=== PATIENT | female | born 1960 | race Caucasian/White ===

== ENCOUNTER 2019-04-16 05:50 | Day surgery (SDC) | payer MEDICARE, MEDICAID, SELFPAY ==
[2019-04-15 14:30] VITALS: BMI 16.5
[2019-04-16 06:06] VITALS: BP 112/86; PULSE 106; RESP 18; TEMP 36.3; O2SAT 93
--- NOTE | 2019-04-16 06:24 | ANES.PREANE2 ---
Pre-Anesthetic Assessment Pre-Anesthetic Assessment: Height/Weight: Height 1.8 m Weight 53.524 kg Temp Pulse Resp BP Pulse Ox 97.4 F L 106 H 18 112/86 93 04/16/19 06:06 04/16/19 06:06 04/16/19 06:06 04/16/19 06:06 04/16/19 06:06 Preop Diagnosis: Mediport removal Proposed Procedure: Operation Date: 04/16/19 07:00 Proposed Procedures p Portacath Removal 42299 C34.90(Not Applicable) - Reji Wilson MD Last intake: Intake Last Liquid Date 04/15/19 Last Liquid Time 21:00 Last Solid Date 04/15/19 Last Solid Time 20:00 Social: Social History: Tobacco Packs per day: 1/2 Pack years: 22 Exam: Pre-Anes Outpt Exam: alert, oriented x 3, clear to auscultation bilaterally and regular rate & rhythm Airway: Dentition: False Musc/skel: Musc/skel: Lower Back Pain Comments: right radiculopathy Neuropsych: Neuropsych: Anxiety Anesthetic Plan: ASA status: III Anesthesia: MAC PFSH Anesthesia PFSH: Social History Smoking and tobacco status: current every day smoker Alcohol intake: never Household members: family Current occupational status: disabled Data Anesthesia Cardiac Studies: No Data to Display
[2019-04-16] MEDS: scopolamine 1.5 Patch 1 PATCH TRANSDERMA (06:34)
[2019-04-16] MEDS: sodium chloride 0.9% 1,000 ML 30 ML IV (06:34)
[2019-04-16] MEDS: midazolam 1 mg/mL INJ 2 mL 2 MG IVP (06:52)
--- NOTE | 2019-04-16 06:53 | PM.HPUD ---
H&P update H&P Update: DATE OF SURGERY/PROCEDURE: 04/16/19 DATE H&P PERFORMED: 04/04/19 H&P UPDATE INFORMATION: H&P completed within last 30 days and No changes to prior documentation PREOP DIAGNOSIS: Mediport removal PLANNED PROCEDURE: Operation Date: 04/16/19 07:00 Proposed Procedures p Portacath Removal 79469 C34.90(Not Applicable) - Reji Wilson MD Full H&P Medications/Allergies: Current Medications: Current Medications Generic Name Dose Route Start Last Admin Trade Name Freq PRN Reason Stop Dose Admin Sodium Chloride 1,000 mls @ 30 ml s/hr 04/16/19 06:15 04/16/19 06:34 Sodium Chloride 0.9% IV 04/17/19 06:14 30 mls/hr .Q24H JIM Administration Perinent History: Medical/Surgical History: Medical History (Updated 04/04/19 @ 13:35 by Reji Wilson MD) Anxiety (Acute) Cancer of left breast (Acute) DDD (degenerative disc disease), lumbar (Acute) H/O fracture of ankle (Acute) ORIF left 12/08/14 Dr. Walden Lung cancer (Acute) Port-A-Cath in place (Acute) Family History: Family History (Updated 04/02/19 @ 10:38 by Ya Iqbal LPN) Other Cancer Heart disease Hypertension Denies family history of Anesthesia complication Bleeding disorder Social History: Social History Smoking and tobacco status: current every day smoker Alcohol intake: never Household members: family Current occupational status: disabled
[2019-04-16] MEDS: lidocaine 1% INJ 20 mL SUBCUT (07:15)
[2019-04-16 07:32] VITALS: BP 100/57; PULSE 75; RESP 16; TEMP 36.4; O2SAT 100
[2019-04-16 08:02] VITALS: BP 100/73; PULSE 73; RESP 18; TEMP 36.4; O2SAT 94
--- NOTE | 2019-04-16 09:21 | PM.OP ---
Operative Report Date of procedure: April 16, 2019 Pre-op Diagnosis: Mediport removal Post-op diagnosis: same Procedure Done: Removal of Mediport from the left subclavian vein Pathology: none sent Surgeon: Reji Wilson Anesthesia: MAC Condition: stable Disposition: same day Procedure: Patient was taken to the operating room and her left chest was prepped and draped in a sterile manner. 10 mL of 1% lidocaine with 0.5% Marcaine was infiltrated around the MediPort and catheter in the right subclavian vein. Using a 15 blade the previous incision was opened, the subcutaneous tissue was divided using electrocautery and MediPort along the catheter was dissected free from the surrounding subcutaneous tissue and removed entirely. The wound was irrigated with saline, hemostasis ensured with electrocautery and subcutaneous tissue was approximated using 3-0 Vicryl suture and skin was closed using running subcuticular 4-0 Monocryl suture. 4x4 and sterile dressings were used as a pressure dressing. The patient was transferred to the recovery room in stable condition.
== END 2019-04-16 08:19 | disposition home or self-care (01) ==
PROVIDERS: PCP Family Medicine; Visit Provider Surgery
PROC: (CPT 36589; principal; 2019-04-16 07:00)
DX: Z45.2 Encounter for adjustment and management of vascular access device (principal); F17.210 Nicotine dependence, cigarettes, uncomplicated; Z82.49 Family history of ischemic heart disease and other diseases of the circulatory system
CPT/HCPCS: 36590; 12345; 96374; J2001; J2250; J2704; J3490; J7030

== ENCOUNTER 2019-09-08 10:47 | Outpatient (CLI) | payer MEDICARE, MEDICAID, SELFPAY ==
--- NOTE | 2019-09-08 10:55 | XR_ITS ---
WS: [id number] LEFT FOOT: 3 VIEW(S) TECHNIQUE: AP, oblique and lateral. HISTORY: HAMMER TOE/ LEFT FOOT PAIN COMPARISON: None available. Prior bunionectomy surgery. Diffuse osteopenia. No acute fractures. Narrowing of the articulations in the midfoot and diffuse ham mertoe deformities. No soft tissue abnormality or bone destruction. XR/XR foot LT min 3V* [id number] IMPRESSION: 1. Prior bunion surgery. 2. Hammertoe deformities. 3. Osteopenia and midfoot arthritis.
== END 2019-09-08 10:48 | disposition home or self-care (01) ==
LOC: RADWPI 10:51
PROVIDERS: Family Provider Family Medicine; PCP Family Medicine; Visit Provider Nurse Practitioner Family
DX: M20.42 Other hammer toe(s) (acquired), left foot (principal); M79.672 Pain in left foot; M85.89 Other specified disorders of bone density and structure, multiple sites
CPT/HCPCS: 73630

== ENCOUNTER 2019-09-29 15:06 | Outpatient (CLI) | payer MEDICARE, MEDICAID, SELFPAY | END 2019-09-29 15:07 | disposition home or self-care (01) | LOC: SPT 15:10 | PROVIDERS: Family Provider Family Medicine; PCP Family Medicine; Visit Provider Podiatrist Foot & Ankle Surgery | DX: M76.822 Posterior tibial tendinitis, left leg (principal) | CPT/HCPCS: 97760; L1902 ==

== ENCOUNTER 2019-10-21 10:45 | Outpatient (CLI) | payer MEDICARE, MEDICAID, SELFPAY ==
--- NOTE | 2019-10-21 11:01 | MM_ITS ---
WS: [id number] RIGHT DIGITAL MAMMOGRAPHY WITH CAD CLINICAL INFORMATION: HX OF BREAST C COMPARISON: November 21, 2016 TECHNIQUE: 4 views of the right breast were obtained. FINDINGS: History of left mastectomy. The right breast is composed of heterogeneous fibroglandular density tissue, which can limit the dete ction of small underlying mass lesions. Lucent centered calcifications right breast. No suspicious focal mass, asymmetry, calcifications, or architectural distortion. No evidence of ethan gnancy. MM/[place] [id number] IMPRESSION: BI-RADS: 2-Benign FOLLOW UP: 1 Year Follow-up Recommend return to annual diagnostic mammography.
== END 2019-10-21 10:46 | disposition home or self-care (01) ==
LOC: RADSHAW 10:51
PROVIDERS: PCP Nurse Practitioner Family; Visit Provider Internal Medicine Hematology & Oncology
DX: Z85.3 Personal history of malignant neoplasm of breast (principal)
CPT/HCPCS: 77065

== ENCOUNTER 2020-03-29 10:26 | Outpatient (CLI) | payer MEDICARE, MEDICAID, SELFPAY ==
--- NOTE | 2020-03-29 10:36 | XR_ITS ---
WS: [id number] ANKLE RIGHT TECHNIQUE: 3 views of the right ankle CLINICAL INFORMATION: ANKLE PAIN, RIGHT COMPARISON: None. FINDINGS: Nondisplaced fracture medial malleolus appears subacute with evidence of healing. Evidence of some c allus formation. Normal lateral malleolus. Minimal soft tissue edema. Normal ankle mortise. Osteopeni a. Partially visualized postoperative changes first metatarsal. XR/XR ankle RT min 3V* 11201 IMPRESSION: 1. Nondisplaced fracture medial malleolus with callus formation. 2. Normal lateral malleolus. 3. Osteopenia.
--- NOTE | 2020-03-29 10:36 | XR_ITS ---
WS: [id number] PROCEDURE: XR chest 2V* [id number] CLINICAL INFORMATION: DYSPNEA COMPARISON: 018 FINDINGS: Heart: Normal cardiac silhouette. Lungs: Lungs are clear. No consolidation or pleural fluid. Volume loss right lung due to prior partia l lobectomy. Moderate chronic sinus changes. Bones: Thoracic curve convex right. Surgical clips right hilum and left axilla. XR/XR chest 2V* 28080 IMPRESSION: 1. Volume loss right hemithorax with prior partial right lung resections. 2. No acute pulmonary infiltrates. 3. Surgical clips overlying the right hilum and left axilla.
== END 2020-03-29 10:27 | disposition home or self-care (01) ==
LOC: RADWPI 10:34
PROVIDERS: PCP Nurse Practitioner Family; Visit Provider Nurse Practitioner Family
DX: R06.00 Dyspnea, unspecified (principal); M85.88 Other specified disorders of bone density and structure, other site; S82.54XA Nondisplaced fracture of medial malleolus of right tibia, initial encounter for closed fracture; X58.XXXA Exposure to other specified factors, initial encounter
CPT/HCPCS: 71046; 73610

== ENCOUNTER 2020-03-31 14:27 | Outpatient (CLI) | payer MEDICARE, MEDICAID, SELFPAY | END 2020-03-31 14:28 | disposition home or self-care (01) | LOC: SPT 14:27 | PROVIDERS: PCP Nurse Practitioner Family; Visit Provider Podiatrist Foot & Ankle Surgery | DX: Z46.89 Encounter for fitting and adjustment of other specified devices (principal); M76.822 Posterior tibial tendinitis, left leg | CPT/HCPCS: 97760; L4361 ==

== ENCOUNTER 2020-04-07 10:50 | Outpatient (CLI) | payer MEDICARE, MEDICAID, SELFPAY ==
--- NOTE | 2020-04-07 10:56 | CT_ITS ---
WS: [id number] CT RIGHT ANKLE, NONCONTRAST, 3-D reconstructions. HISTORY: fracture Technique: All CT scans at [facility] use at least one of these dose optimization techniq ues: automated exposure control; mA and/or kV adjustment per patient size (includes targeted exams wh ere dose is matched to clinical indication); or iterative reconstruction. DLP: 603.46 mGycm COMPARISON: None available. Healing nondisplaced vertical fracture through the medial malleolus. There is increasing callous form ation with only minimal adjacent soft tissue edema. No loose body in the joint space. Distal fibula i s intact. No osteochondral lesions are identified. Talus and the calcaneus are negative for acute pro cess. The subtalar joint is normal. Again noted are the postsurgical changes in the first metatarsal. CT/CT ankle RT wo con* [id number] IMPRESSION: 1. Healing nondisplaced fracture medial malleolus. 2. No additional fractures or bone fragments or osteochondral lesions.
== END 2020-04-07 10:51 | disposition home or self-care (01) ==
LOC: RADWPI 10:54
PROVIDERS: PCP Nurse Practitioner Family; Visit Provider Podiatrist Foot & Ankle Surgery
DX: S82.891A Other fracture of right lower leg, initial encounter for closed fracture (principal); X58.XXXA Exposure to other specified factors, initial encounter
CPT/HCPCS: 73700

== ENCOUNTER 2020-04-16 05:37 | Day surgery (SDC) | payer MEDICARE, MEDICAID, SELFPAY ==
[2020-04-15 09:39] VITALS: BMI 16.7
[2020-04-16] VITALS (8 sets, daily range): BP systolic 112–133; BP diastolic 75–88; PULSE 69–92; RESP 12–20; TEMP 36.6; O2SAT 94–98
[2020-04-16] MEDS: sodium chloride 0.9% 1,000 ML 30 ML IV (06:30)
[2020-04-16] MEDS: scopolamine 1.5 Patch 1 PATCH TRANSDERMA (06:37)
--- NOTE | 2020-04-16 06:37 | P.HPUD_ITS ---
Surgery/Procedure H&P Update DATE OF PROCEDURE: April 16, 2020 DATE H&P PERFORMED: 04/08/20 H&P UPDATE INFORMATION: I have reviewed H&P completed within last 30 days, I have examined patient prior to procedure, No changes to prior documentation and H&P is in [facility] EMR on date indicated PREOP DIAGNOSIS: Right ankle bimalleolar fracture PLANNED PROCEDURE: Operation Date: 04/16/20 07:00 Proposed Procedures p ORIF Ankle 88395 S82.841A(Right) - eRfugio Torres DPM
[2020-04-16] MEDS: midazolam 1 mg/mL INJ 2 mL 2 MG IVP (06:40)
--- NOTE | 2020-04-16 06:47 | P.OP_ITS ---
Operative Report Date of procedure: April 16, 2020 Pre-op Diagnosis: Right ankle bimalleolar fracture Post-op diagnosis: same Post-op Findings: Distal fibular fracture, right, medial malleolus fracture, right. Procedure Done: Open reduction internal fixation right bimalleolar ankle fracture. CPT code 28392 Implants: 3-0 Vicryl, 4-0 Vicryl, 4-0 nylon, skin amparo, [place] 28 hook plate, [place] 28 locking and nonlocking screws 3.5 mm in diameter. [place] 28 4.0 headed screws with washers x2. Pathology: none sent Surgeon: Refugio Torres D.P.M. Drilling Rig Operator: Marichuy Farah Anna Anesthesia: General Estimated blood loss: Less than 5 mL Tourniquet time: 40 minutes IV fluids: None Urine output: None Complications: None Findings: Darien Casper a fracture of the right distal fibula, medial malleolus fracture right. No syndesmotic disruption. Condition: stable Disposition: PACU Brief History: Early January 2020 patient sustained a right ankle injury sustaining a bimalleolar ankle fracture. She did not seek medical treatment until approximately 2.5 months later states that she thought that she could heal it on her own however she has had persistent pain over the past 2 and half months which has been increasing she is unable to walk or bear weight on it at this time. Recommended open reduction internal fixation of the right bimalleolar ankle fracture risks include pain, bleeding, numbness, infection, hardware failure, irritation of hardware, likelihood of posttraumatic arthritis. Patient interviewed preop, informed consent signed, all questions answered to her satisfaction she wishes to proceed, I initialed her right ankle with a skin marker no guarantees, written expressed or implied. Procedure: Under mild sedation the patient was brought to the operating room and placed on the operating table in supine position. A popliteal block was administered per anesthesia preoperatively to the right lower extremity. A timeout was performed and anesthesia administered by the anesthesia service. Local anesthesia injected by myself 10 cc of 0.5 sent Marcaine plain diffusely at the distal fibula as well as at the saphenous nerve, right. Well-padded right high calf tourniquet was applied. Right lower extremity was scrubbed, prepped and draped utilizing normal aseptic technique. Left foot was examined a weighted with an Esmarch bandage and tourniquet inflated to 250 mmHg. Attention was directed to the lateral malleolus where a linear longitudinal incision was made over the lateral malleolus coursing proximally in a linear longitudinal fashion. Dissection carried down through subcutaneous tissue utilizing blunt dissection periosteal incision was performed and fracture was identified evacuated of hematoma and reduced followed by application of hook plate which was tamped into place and eccentric plate hole utilized for further compression this was a [place] 28 plate for the distal fibula and also utilize [place] 28 3.5 mm locking and nonlocking screws. After having filled the eccentric hole of the plate for further compression 2 screws proximal and distal were also fixated utilizing standard AO technique. Care was taken to not violate the ankle mortise this was confirmed on fluoroscopy. Incision site was flushed with copious amounts of sterile saline solution. AP, mortise and lateral views confirmed excellent placement of hardware and fixation of the fracture fragment. Periosteum was closed utilizing 3-0 Vicryl. Subcutaneous closed utilizing 4-0 Vicryl and skin closed utilizing skin amparo. Attention was directed to the right medial malleolus. Curvilinear incision was made at the distal aspect of the malleolus with a #15 blade. Dissection carried down through subcutaneous tissue to the layer of periosteum utilizing blunt and sharp technique. All bleeders were ligated and cauterized as necessary. Utilizing standard AO technique in a parallel fashion [place] 28 headed and with washers for millimeter screws by 50 mm screw were inserted across the medial malleolus with excellent bony apposition and compression noted not violating the ankle mortise. Positioning confirmed on fluoroscopy noted to be excellent with fracture reduction. Periosteum was reapproximated utilizing 3-0 Vicryl. Skin closed utilizing 4-0 nylon. Incision sites dressed with Adaptic, sterile 4 x 4, Kerlix and Manuel wrap followed by application of cam boot to the right lower extremity. Tourniquet was deflated and a prompt hyperemic response is noted to the distal digits of the right foot. Patient tolerated the procedure and anesthesia well and was transferred to the PACU with vital signs stable and vascular status intact. Following a period of postoperative monitoring she will be discharged home is to remain strict nonweightbearing is to keep the boot on at all times is to elevate her right foot was given these instructions on discharge paperwork also my phone number to contact me with any questions or concerns.
--- NOTE | 2020-04-16 06:51 | ANES.PREANE2 ---
Pre-Anesthetic Assessment Pre-Anesthetic Assessment: Height/Weight: Height 1.8 m Weight 54.431 kg Pulse Resp BP Pulse Ox 92 20 H 123/82 94 04/16/20 06:13 04/16/20 06:13 04/16/20 06:13 04/16/20 06:13 Preop Diagnosis: Right ankle bimalleolar fracture Proposed Procedure: Operation Date: 04/16/20 07:00 Proposed Procedures p ORIF Ankle 21180 S82.841A(Right) - Refugio Torres DPM Familial anesthetic complications: PONV - scop patch applied Was Beta Poonam taken within 24 hours: N/A Last intake: Intake Last Liquid Date 04/15/20 Last Liquid Time 19:00 Last Solid Date 04/15/20 Last Solid Time 19:00 Social: Social History: Tobacco and No alcohol Exam: Pre-Anes Outpt Exam: alert, oriented x 3, clear to auscultation bilaterally and regular rate & rhythm Airway: MP: 2 Dentition: Other (no teeth) Pulmonary: Comments: s/p lung cancer (only 1/3 of right lung remains) Anesthetic Plan: ASA status: 2 Anesthesia: General and Regional (specify below) (popliteal) Risk of > 500 ml blood loss (7ml/kg in children): No Meds/Allergies Current Medications: Current Medications Generic Name Dose Route Start Last Admin Trade Name Freq PRN Reason Stop Dose Admin Sodium Chloride 1,000 mls @ 30 ml s/hr 04/16/20 06:00 04/16/20 06:30 Sodium Chloride 0.9% IV 04/17/20 05:59 30 mls/hr .Q24H JIM Administration PFSH Anesthesia PFSH: Medical History (Updated 04/12/20 @ 12:34 by Refugio Torres DPM) Anxiety Cancer of left breast DDD (degenerative disc disease), lumbar H/O fracture of ankle ORIF left 12/08/14 Dr. Walden Lung cancer Surgical History H/O colonoscopy 2014 H/O foot surgery left x 2 right x 1 H/O removal of cyst abdomen H/O: hysterectomy vaginal History of breast implant removal Explantation of postmastectomy implant, partial capsulotomy mastectomy site 12/20/16 History of lobectomy of lung right History of removal of Port-a-Cath S/P left mastectomy Status post left breast reconstruction Family History Other Cancer Heart disease Hypertension Denies family history of Anesthesia complication Bleeding disorder Social History Smoking and tobacco status: current every day smoker Alcohol intake: never Household members: family Current occupational status: disabled Data Anesthesia Cardiac Studies: No Data to Display
--- NOTE | 2020-04-16 06:52 | ANES.PROC ---
Anesthesia Procedures Procedure/Date: 04/16/20 Nerve Block ^: Nerve Block 1: Main Anesthesia: general anesthesia Time Out Performed: Yes Consent: requested by attending/covering physician Nerve block location: popliteal (R) Anesthesia monitors applied: pulse oximetry, EKG, BP cuff and oxygen Nerve block position: semi sitting Anesthetic Used: ropivicaine 0.5% and with decadron (4 mg) Amount of anesthesia used (mL): 30 Ultrasound used to: recognize landmarks Nerve Stimulator Used?: No Interscalene/Femoral BLK: 4 stimuplex 21 g needle used for position and inplane approach, visualize local anesthetic spread and no vascular puncture identified Injection: neg aspiration of heme Patient Tolerated Procedure: well and no complications Complications: none
--- NOTE | 2020-04-16 08:12 | XR_ITS ---
WS: [id number] Right ankle, 3 views, 04/16/2020 Clinical Data: post op Comparison: Right ankle, 03/29/2020. Findings: There is a plate extending over the distal lateral aspect of the right fibula which has an inferior c url. Plate is applied with 4 orthopedic screws. There is a anterior posterior oblique screw in the di stal right fibula. 2 oblique orthopedic screws are reducing a medial malleolar fracture. There is an orthopedic screw and staple in the right first metatarsal from previous surgery. There are surgical amparo adjacent to the distal right fibula. There is a splint applied to the righ t ankle. XR/XR ankle RT min 3V* [id number] Impression: Repair of bimalleolar fracture.
--- NOTE | 2020-04-16 09:11 | P.PCN_ITS ---
PACU note PACU note: VSS, Good respiratory effort, report to CUSTOMER STRATEGY MANAGER Post-Anesthesia Exam: awake
--- NOTE | 2020-04-16 09:11 | PM.PACU ---
PACU note PACU note: VSS, Good respiratory effort, report to REPAIRER SWITCHGEAR Post-Anesthesia Exam: awake
--- NOTE | 2020-04-16 15:26 | ANE.PACU2 ---
Inpatient post-anesthesia follow up: Airway intact: Yes Vital signs: Temperature 97.8 F Pulse Rate 87 Respiratory Rate 18 Blood Pressure 115/88 Pulse Oximetry 94 Oxygen Delivery Me thod Room Air Oxygen Flow Rate 8 Fraction of Inspir ed Oxygen Hydration adequate: Yes Nausea and vomiting: No Pain level: 2 Mental status: Baseline
== END 2020-04-16 09:01 | disposition home or self-care (01) ==
PROVIDERS: PCP Nurse Practitioner Family; Visit Provider Podiatrist Foot & Ankle Surgery
PROC: (CPT 27814; principal; 2020-04-16 07:00)
DX: S82.841A Displaced bimalleolar fracture of right lower leg, initial encounter for closed fracture (principal); X58.XXXA Exposure to other specified factors, initial encounter; Z85.118 Personal history of other malignant neoplasm of bronchus and lung; Z90.2 Acquired absence of lung [part of]; F41.9 Anxiety disorder, unspecified; Z85.3 Personal history of malignant neoplasm of breast; Z90.10 Acquired absence of unspecified breast and nipple; F17.210 Nicotine dependence, cigarettes, uncomplicated
CPT/HCPCS: 27814; 12345; 64450; 73610; 76942; 96365; 96374; C1713; J0690; J1100; J2250; J2405; J2704; J2795; J3010; J3490; J7030

== ENCOUNTER 2020-04-25 18:12 | Inpatient (IN) | payer MEDICARE, MEDICAID, SELFPAY ==
[2020-04-25] VITALS (9 sets, daily range): BP systolic 91–127; BP diastolic 69–79; PULSE 78–105; RESP 14–18; TEMP 36.7; O2SAT 90–94; BMI 15.3
--- NOTE | 2020-04-25 18:22 | ED_ITS ---
Documented by User: SIM Arevalo 04/26/20 02:28 HPI - General Adult General: Chief complaint: General Medical Stated complaint: WEAKNESS Time Seen by Provider: 04/25/20 18:19 History of Present Illness: HPI narrative: Patient is a 59-year-old female comes to the ED with weakness. Patient has a past medical history of Breast cancer that spread to the lungs. She had some pulmonary lung surgically removed several years ago. Patient had a right ankle fracture and received surgery on April 16. She is currently in a boot and was scheduled to have a follow-up appointment with Dr. Torres in the morning perform the surgery on April 23 but patient did not go to it because she was unable to make it. She describes having weakness postop and she says it has not improved. Patient does admit to not being very active and laying in bed most of the time. Patient currently has oxycodone 10 prescription and hydrocodone 10 prescription that she takes for pain. Patient says she has no constipation and has been able to have bowel movements. She endorses a decreased appetite since surgery as well. She states she has some chronic shortness of breath but does not feel like she is having any acute worsening shortness of breath. Patient denies any nausea/vomiting, fever, chills, chest pain, abdominal pain, bladder or bowel symptoms. Associated symptoms: Reports dyspnea (Chronic ); Deny chest pain, headache(s), nausea, rash, palpitations or vomiting Review of Systems Const: Reports: change in appetite (Decreased appetite), fatigue and other (Generalized weakness); Denies: fever(s) or chills Eyes: Denies: change in vision or eye discomfort ENMT: Denies: throat pain, odynophagia, nasal discharge or nasal congestion Card: Denies: chest pain, palpitations, edema, swelling of feet/ankles, dyspnea on exertion or orthopnea Resp: Reports: dyspnea (Chronic ); Denies: productive cough or non-productive cough GI: Denies: abdominal pain, nausea, vomiting, diarrhea, constipation or hematochezia : Denies: flank pain, dysuria or hematuria Musc: Reports: extremity pain (normal post right ankle surgery pain); Denies: neck pain, back pain or extremity swelling Skin/Breast: Denies: rash or new lesions Neuro: Denies: headache(s), numbness in extremities or weakness in extremities PFSH ED PFSH: Medical History (Updated 04/26/20 @ 11:47 by Nathen Johnson MD, [facility] [place]) Anxiety Cancer of left breast had surgery, other treatment not known currently DDD (degenerative disc disease), lumbar Lung cancer s/p lobectomy and chemotherapy, 2nd primary per patient Surgical History (Updated 04/26/20 @ 03:55 by Hina Mancia MD) H/O colonoscopy 2014 H/O foot surgery left x 2 right x 1 H/O removal of cyst abdomen H/O: hysterectomy vaginal History of breast implant removal (12/20/16) Explantation of postmastectomy implant, partial capsulotomy mastectomy site History of lobectomy of lung right History of open reduction and internal fixation (ORIF) procedure (12/08/14) left ankle, Dr Walden History of open reduction and internal fixation (ORIF) procedure (04/16/20) right bimalleolar ankle fracture, Dr Torres History of removal of Port-a-Cath (04/2019) S/P left mastectomy Status post left breast reconstruction Family History Other Cancer Heart disease Hypertension Denies family history of Anesthesia complication Bleeding disorder Social History (Updated 04/26/20 @ 04:34 by Hina Mancia MD) Smoking and tobacco status: current every day smoker cigarettes [ Other cigarette details: more than a pack per day ] Alcohol intake: never Current occupational status: disabled Physical Exam Const: COMMON NORMALS: no acute distress, patient oriented x3 and alert GENERAL APPEARANCE: cooperative, comfortable and lethargic ORIENTATION/CONSCIOUSNESS: Yes lethargic HENMT: COMMON NORMALS: normocephalic HEAD & SCALP: normocephalic MOUTH: Normal oral and palatal mucosa present THROAT: posterior oropharynx normal and uvula midline Eye: COMMON NORMALS: EOMs intact bilaterally PUPIL: Yes Equal, round and reactive pupils present and Yes Pinpoint pupils bilaterally (pupils were pinpoint and reactive to light) Neck/C-Spine: COMMON NORMALS: supple GENERAL: Yes normal visual inspection Resp: COMMON NORMALS: normal respiratory effort, No retractions and No use of accessory muscles EFFORT & INSPECTION: Yes able to speak in complete sentences, No tachypneic, No respiratory distress and No labored A USCULTATION: wheezes expiratory wheezes and throughout and diminished lung sounds on the right in the lower lung brown Cardio: COMMON NORMALS: regular rate, regular rhythm, S1 normal heart sound present, S2 normal heart sound present, No gallops present (Cardio), No clicks present (Cardio), No murmurs present (Cardio) and Peripheral pulses 2+ throughout RATE: regular rate RHYTHM: regular rhythm HEART SOUNDS: S1 normal heart sound present and S2 normal heart sound present PERIPHERAL PULSES: Peripheral pulses 2+ throughout GI: COMMON NORMALS: Normal to inspection, nondistended, normoactive bowel sounds present, Soft to palpation, non-tender and no masses PALPATION: Yes Soft to palpation : COMMON NORMALS: Yes no CVA tenderness BLADDER/KIDNEY EXAM: Yes no CVA tenderness Back/Pelvis: COMMON NORMALS: no CVA tenderness Extremity: GENERAL: Yes normal exam except as noted Neuro: COMMON NORMALS: patient oriented x3 and moves all extremities SENSORIUM/ORIENTATION: Yes alert and Yes lethargic Skin: GENERAL SKIN EXAM: dry skin Course Reevaluation(s): Reevaluation #1: After patient received DuoNeb breathing treatment her lung sounds and wheezing did improve. She still had diminished lung sounds in the right lower lobe. Vital Signs: Vital signs: Vital Signs Temperature 98.2 F 04/26/20 08:00 Pulse Rate 84 04/26/20 09:36 Respiratory Rate 18 04/26/20 09:36 Blood Pressure 110/61 04/26/20 08:00 Pulse Oximetry 94 04/26/20 09:36 MDM - General Adult MDM Narrative: Medical decision making narrative: Patient is a 59-year-old female comes to the ED with generalized weakness. Patient has a past medical history of breast cancer that spread into the lung and had part of right upper lung surgically removed. Patient had right ankle surgery on April 16 and states she has not been very active since surgery and feels increasing generalized weakness. Patient not on oxygen at home. Here in the ED she is on 4 L of oxygen and O2 saturation is 93%. Patient appears very tired and sleepy. Exam findings remarkable for some wheezing throughout lungs with diminished breath sounds on right lower lung. Patient also had pinpoint pupils that were reactive to light. White blood cell count 20.4, platelets 527 and rest of CBC was unremarkable. Sodium 130, potassium 2.8. Lactic 1.1. Rapid Covid negative and [facility] Covid lab pending. Chest x-ray showed right lower lobe pneumonia. EKG showed no acute OR findings. CTA of chest shows no PE, but endobronchial occlusion of the right lung beginning at the origin of the right mainstem- possible malignancy. On the ED patient got IV fluids, DuoNeb breathing treatment, Solu-Medrol and Rocephin. I spoke with Dr. Johnson and told about patient case and I think she needs to be brought in for admission. Dr. Johnson then contacted the hospitalist and had patient admitted. Lab Data: Attestation: I reviewed the patient's lab results. Labs: Lab Results 04/25/20 04/25/20 04/25/20 Range/Units 19:13 19:13 20:41 WBC 20.4 H (4.0-10.0) 10^3/ uL RBC 4.19 (4.1-5.3) 10^6/u L Hgb 12.4 (11.5-15.3) g/dL Hct 36.3 L (37.0-47.0) % MCV 86.6 (81-99) fL MCH 29.6 (28.0-34.0) pg MCHC 34.2 (30.0-36.0) g/dL RDW 15.0 (12.1-15.1) % Plt Count 527 H (130-400) 10^3/c mm MPV 9.8 (7.4-10.4) fL Neut % (Auto) 86.1 % Lymph % (Auto) 4.9 % [place] % (Auto) 7.1 % Eos % (Auto) 0.5 % Baso % (Auto) 0.4 % Neut # (Auto) 17.58 H (1.8-7.7) 10^3/u L Lymph # (Auto) 1.0 (0.8-4.8) 10^3/u L [place] # (Auto) 1.4 H (0.2-0.9) 10^3/u L Eos # (Auto) 0.1 (0.0-0.8) 10^3/u L Baso # (Auto) 0.1 (0.0-0.1) 10^3/u L Nucleated RBC % (a uto) 0 % Nucleated RBCs # 0.0 /100WBC Sodium 130 L (136-145) mmol/L Potassium 2.8 L* (3.5-5.1) mmol/L Chloride 89 L (98-107) mmol/L Carbon Dioxide 30 H (22-29) mmol/L Anion Gap 13.8 (5-19) BUN 15 (8-23) mg/dL Creatinine 0.5 (0.5-0.9) mg/dL GFR Calculation 125.9 (90-130) mL/min Glucose 90 (65-115) mg/dL Calculated Osmolal ity 270 L (285-295) mOsm/k g Lactic Acid 1.1 (0.5-2.2) mmol/L Calcium 8.7 (8.5-10.5) mg/dL Total Bilirubin 0.6 (0.15-1.2) mg/dL AST 10 (0-32) U/L ALT 6 (0-33) U/L Alkaline Phosphata se 104 (35-105) IU/L Total Protein 6.4 L (6.6-8.7) g/dL Albumin 2.9 L (3.5-5.2) g/dL Globulin 3.5 (1.3-4.6) g/dL SARS-CoV-2 Ag (Rap id) (Negative) 04/25/20 Range/Units 23:50 WBC (4.0-10.0) 10^3/ uL RBC (4.1-5.3) 10^6/u L Hgb (11.5-15.3) g/dL Hct (37.0-47.0) % MCV (81-99) fL MCH (28.0-34.0) pg MCHC (30.0-36.0) g/dL RDW (12.1-15.1) % Plt Count (130-400) 10^3/c mm MPV (7.4-10.4) fL Neut % (Auto) % Lymph % (Auto) % [place] % (Auto) % Eos % (Auto) % Baso % (Auto) % Neut # (Auto) (1.8-7.7) 10^3/u L Lymph # (Auto) (0.8-4.8) 10^3/u L [place] # (Auto) (0.2-0.9) 10^3/u L Eos # (Auto) (0.0-0.8) 10^3/u L Baso # (Auto) (0.0-0.1) 10^3/u L Nucleated RBC % (a uto) % Nucleated RBCs # /100WBC Sodium (136-145) mmol/L Potassium (3.5-5.1) mmol/L Chloride (98-107) mmol/L Carbon Dioxide (22-29) mmol/L Anion Gap (5-19) BUN (8-23) mg/dL Creatinine (0.5-0.9) mg/dL GFR Calculation (90-130) mL/min Glucose (65-115) mg/dL Calculated Osmolal ity (285-295) mOsm/k g Lactic Acid (0.5-2.2) mmol/L Calcium (8.5-10.5) mg/dL Total Bilirubin (0.15-1.2) mg/dL AST (0-32) U/L ALT (0-33) U/L Alkaline Phosphata se (35-105) IU/L Total Protein (6.6-8.7) g/dL Albumin (3.5-5.2) g/dL Globulin (1.3-4.6) g/dL SARS-CoV-2 Ag (Rap id) Negative (Negative) Imaging Data^: CXR: Attestation: I personally reviewed and interpreted this imaging study as follows: Radiologist's impression: [address] [address] XRay Report Signed Patient: Natalee Leach Unit #: [id number] : 1960 Age/Sex: 59 / F ADM Date: 04/25/20 Loc: ER Room/Bed: Attending Dr: Ordering Provider/Ordering MD: Devin James Date of Service: 04/25/20 Procedure(s): XR chest 1V portable [id number] Accession Number(s): [id number] Report Number: [id number] PROCEDURE INFORMATION: Exam: XR Chest, 1 View Exam date and time: 04/25/2020 6:33 PM Age: 59 years old Clinical indication: Dyspnea; Additional info: Weakness TECHNIQUE: Imaging protocol: XR of the chest Views: 1 view. COMPARISON: CR XR chest 2V* [id number] 03/29/2020 10:41 AM FINDINGS: Lungs: Patchy opacities in the right lower lobe new from prior. Pre-existing right lung volume loss stable from prior. Surgical clips within the right hilum. Pleural spaces: Unremarkable. No pleural effusion. No pneumothorax. Heart/Mediastinum: Cardiomediastinal silhouette is unremarkable. Bones/joints: Unremarkable. XR/XR chest 1V portable [id number] IMPRESSION: Development of right lower lobe pneumonia which is new since 03/29/2020 Dictated By: Jovany Morris Signed By: Jovany Morris Signed Date/Time: 04/25/201908 DD/ 06 CT Chest: Attestation: I personally reviewed and interpreted this imaging study as follows: Radiologist's impression: [place] [address] CT Scan Report Signed Patient: Natalee Leach Unit #: [id number] : 1960 Age/Sex: 59 / F ADM Date: 04/25/20 Loc: ER Room/Bed: Attending Dr: Ordering Provider/Ordering MD: Devin James Date of Service: 04/25/20 Procedure(s): CT angio chest PE protcl [id number] Accession Number(s): [id number] Report Number: [id number] PROCEDURE INFORMATION: Exam: CT Angiography Chest With Contrast Exam date and time: 04/25/2020 9:36 PM Age: 59 years old Clinical indication: Shortness of breath; Prior surgery; Surgery date: 6+ months; Surgery type: Mast w recon, port w removal, R lobectomy; Patient HX: C/O SOB 9 days S/P ankle surgery TECHNIQUE: Imaging protocol: Computed tomographic angiography of the chest with contrast. 3D rendering (Not supervised by radiologist): MIP and/or 3D reconstructed images were created by the technologist. Radiation optimization: All CT scans at this facility use at least one of these dose optimization techniques: automated exposure control; mA and/or kV adjustment per patient size (includes targeted exams where dose is matched to clinical indication); or iterative reconstruction. Contrast material: OMNI 350; Contrast volume: 62 ml; Contrast route: INTRAVENOUS (IV); COMPARISON: CT chest w con* [id number] 12/30/2013 9:28 AM RADIATION DOSE METRICS: Total DLP (mGy-cm): 366.68 FINDINGS: Pulmonary arteries: Normal. No pulmonary emboli. Aorta: Unremarkable. No aortic aneurysm. No aortic dissection. Lungs: Extensive irregular micro nodular changes in both lungs. Geographic areas of ground-glass attenuation scattered in the left upper lobe. Mild diffuse septal thickening throughout the right lower lobe. 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 Pleural spaces: Unremarkable. No pneumothorax. No pleural effusion. Heart: Unremarkable. No cardiomegaly. No pericardial effusion. Mediastinal space: Postoperative changes in the right hilum. Multiple surgical clips. Most likely prior lobectomy. Lymph nodes: Unremarkable. No enlarged lymph nodes. Liver: Several small left hepatic lobe circumscribed low-attenuation lesions stable from prior. Bones/joints: There is an L2 vertebral compression fracture of indeterminate acuity which is also incompletely assessed by this examination. No thoracic spine lesion. No thoracic vertebral fracture. Soft tissues: Left mastectomy postsurgical changes. CT/CT angio chest PE protcl [id number] IMPRESSION: 1. Extensive nonspecific pneumonia in both lungs. 2. 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 Endobronchial malignancy cannot be excluded. Numerous surgical clips are present in the right hilum consistent with prior thoracic surgery. 3. Negative for pulmonary embolism. 4. Age indeterminate L2 vertebral fracture. Correlate with available comparison imaging. Radiation Dose CTDIVOL = (mGy): DLP = 366.68 (mGy-cm) Dictated By: Jovany Morris Signed By: Jovany Morris Signed Date/Time: 04/25/202211 DD/ 09 EKG Data^: EKG 1: Attestation: I personally reviewed and interpreted this EKG as follows: EKG interpretation date: 04/25/20 Interpretation: Normal sinus rhythm, 92 bpm, no ST segment elevation or depression seen. Computer generated interpretation: Chest X-Ray 04/25/20 18:31 IMPRESSION: Development of right lower lobe pneumonia which is new since 03/29/2020 Chest CTA 04/25/20 20:30 IMPRESSION: 1. Extensive nonspecific pneumonia in both lungs. 2. 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 Endobronchial malignancy cannot be excluded. Numerous surgical clips are present in the right hilum consistent with prior thoracic surgery. 3. Negative for pulmonary embolism. 4. Age indeterminate L2 vertebral fracture. Correlate with available comparison imaging. Radiation Dose CTDIVOL = (mGy): DLP = 366.68 (mGy-cm) Discharge Plan Discharge Patient Disposition: Admitted As Inpatient Admit Provider: Hina Mancia Clinical Impression: Pneumonia, Hypokalemia, History of breast cancer, History of lung cancer Condition: Stable Coding Level of Care Code ED Grinder Set Up Operator Internal for Chg Fwd Exam Comprehensive Documented by User: Nathen Johnson MD, [facility] [place] 04/26/20 11:47 HPI - General Adult General: Chief complaint: General Medical Stated complaint: WEAKNESS Time Seen by Provider: 04/25/20 18:19 [facility] ED PFSH: Medical History (Updated 04/26/20 @ 11:47 by Nathen Johnson MD, [facility] [place]) Anxiety Cancer of left breast had surgery, other treatment not known currently DDD (degenerative disc disease), lumbar Lung cancer s/p lobectomy and chemotherapy, 2nd primary per patient Surgical History (Updated 04/26/20 @ 03:55 by Hina Mancia MD) H/O colonoscopy 2014 H/O foot surgery left x 2 right x 1 H/O removal of cyst abdomen H/O: hysterectomy vaginal History of breast implant removal (12/20/16) Explantation of postmastectomy implant, partial capsulotomy mastectomy site History of lobectomy of lung right History of open reduction and internal fixation (ORIF) procedure (12/08/14) left ankle, Dr Walden History of open reduction and internal fixation (ORIF) procedure (04/16/20) right bimalleolar ankle fracture, Dr Torres History of removal of Port-a-Cath (04/2019) S/P left mastectomy Status post left breast reconstruction Family History Other Cancer Heart disease Hypertension Denies family history of Anesthesia complication Bleeding disorder Social History (Updated 04/26/20 @ 04:34 by Hina Mancia MD) Smoking and tobacco status: current every day smoker cigarettes [ Other cigarette details: more than a pack per day ] Alcohol intake: never Current occupational status: disabled Course Vital Signs: Vital signs: Vital Signs Temperature 98.2 F 04/26/20 08:00 Pulse Rate 84 04/26/20 09:36 Respiratory Rate 18 04/26/20 09:36 Blood Pressure 110/61 04/26/20 08:00 Pulse Oximetry 94 04/26/20 09:36 MDM - General Adult MDM Narrative: Medical decision making narrative: Kindly evaluate the midlevel providers notes for complete history and physical examination. I also evaluated this patient. Essentially this is a 59-year-old female patient with a prior history of breast cancer that metastasized to the lung following which she had partial lobectomy of her right long several years ago. She presents with generalized weakness, and surprisingly no respiratory symptoms. Weakness is likely related to severe hypokalemia. On imaging however she has features that could be pneumonia but also shows right mainstem bronchus occlusion. I believe she also has post obstructitve pneumonia. Findings are concerning for lymphatic spread of malignancy. She will require a bronchoscopy and further workup as well as IV antibiotics. She is therefore being admitted. Medical Records: Attestation: I reviewed the patient's medical records. Lab Data: Attestation: I reviewed the patient's lab results. Labs: Lab Results 04/25/20 04/25/20 04/25/20 Range/Units 19:13 19:13 20:41 WBC 20.4 H (4.0-10.0) 10^3/ uL RBC 4.19 (4.1-5.3) 10^6/u L Hgb 12.4 (11.5-15.3) g/dL Hct 36.3 L (37.0-47.0) % MCV 86.6 (81-99) fL MCH 29.6 (28.0-34.0) pg MCHC 34.2 (30.0-36.0) g/dL RDW 15.0 (12.1-15.1) % Plt Count 527 H (130-400) 10^3/c mm MPV 9.8 (7.4-10.4) fL Neut % (Auto) 86.1 % Lymph % (Auto) 4.9 % [place] % (Auto) 7.1 % Eos % (Auto) 0.5 % Baso % (Auto) 0.4 % Neut # (Auto) 17.58 H (1.8-7.7) 10^3/u L Lymph # (Auto) 1.0 (0.8-4.8) 10^3/u L [place] # (Auto) 1.4 H (0.2-0.9) 10^3/u L Eos # (Auto) 0.1 (0.0-0.8) 10^3/u L Baso # (Auto) 0.1 (0.0-0.1) 10^3/u L Nucleated RBC % (a uto) 0 % Nucleated RBCs # 0.0 /100WBC Sodium 130 L (136-145) mmol/L Potassium 2.8 L* (3.5-5.1) mmol/L Chloride 89 L (98-107) mmol/L Carbon Dioxide 30 H (22-29) mmol/L Anion Gap 13.8 (5-19) BUN 15 (8-23) mg/dL Creatinine 0.5 (0.5-0.9) mg/dL GFR Calculation 125.9 (90-130) mL/min Glucose 90 (65-115) mg/dL Calculated Osmolal ity 270 L (285-295) mOsm/k g Lactic Acid 1.1 (0.5-2.2) mmol/L Calcium 8.7 (8.5-10.5) mg/dL Total Bilirubin 0.6 (0.15-1.2) mg/dL AST 10 (0-32) U/L ALT 6 (0-33) U/L Alkaline Phosphata se 104 (35-105) IU/L Total Protein 6.4 L (6.6-8.7) g/dL Albumin 2.9 L (3.5-5.2) g/dL Globulin 3.5 (1.3-4.6) g/dL SARS-CoV-2 Ag (Rap id) (Negative) 04/25/20 Range/Units 23:50 WBC (4.0-10.0) 10^3/ uL RBC (4.1-5.3) 10^6/u L Hgb (11.5-15.3) g/dL Hct (37.0-47.0) % MCV (81-99) fL MCH (28.0-34.0) pg MCHC (30.0-36.0) g/dL RDW (12.1-15.1) % Plt Count (130-400) 10^3/c mm MPV (7.4-10.4) fL Neut % (Auto) % Lymph % (Auto) % [place] % (Auto) % Eos % (Auto) % Baso % (Auto) % Neut # (Auto) (1.8-7.7) 10^3/u L Lymph # (Auto) (0.8-4.8) 10^3/u L [place] # (Auto) (0.2-0.9) 10^3/u L Eos # (Auto) (0.0-0.8) 10^3/u L Baso # (Auto) (0.0-0.1) 10^3/u L Nucleated RBC % (a uto) % Nucleated RBCs # /100WBC Sodium (136-145) mmol/L Potassium (3.5-5.1) mmol/L Chloride (98-107) mmol/L Carbon Dioxide (22-29) mmol/L Anion Gap (5-19) BUN (8-23) mg/dL Creatinine (0.5-0.9) mg/dL GFR Calculation (90-130) mL/min Glucose (65-115) mg/dL Calculated Osmolal ity (285-295) mOsm/k g Lactic Acid (0.5-2.2) mmol/L Calcium (8.5-10.5) mg/dL Total Bilirubin (0.15-1.2) mg/dL AST (0-32) U/L ALT (0-33) U/L Alkaline Phosphata se (35-105) IU/L Total Protein (6.6-8.7) g/dL Albumin (3.5-5.2) g/dL Globulin (1.3-4.6) g/dL SARS-CoV-2 Ag (Rap id) Negative (Negative) EKG Data^: EKG 1: Computer generated interpretation: Chest X-Ray 04/25/20 18:31 IMPRESSION: Development of right lower lobe pneumonia which is new since 03/29/2020 Chest CTA 04/25/20 20:30
--- NOTE | 2020-04-25 18:31 | XRR_ITS ---
PROCEDURE INFORMATION: Exam: XR Chest, 1 View Exam date and time: 04/25/2020 6:33 PM Age: 59 years old Clinical indication: Dyspnea; Additional info: Weakness TECHNIQUE: Imaging protocol: XR of the chest Views: 1 view. COMPARISON: CR XR chest 2V* [id number] 03/29/2020 10:41 AM FINDINGS: Lungs: Patchy opacities in the right lower lobe new from prior. Pre-existing right lung volume loss stable from prior. Surgical clips within the right hilum. Pleural spaces: Unremarkable. No pleural effusion. No pneumothorax. Heart/Mediastinum: Cardiomediastinal silhouette is unremarkable. Bones/joints: Unremarkable. XR/XR chest 1V portable [id number] IMPRESSION: Development of right lower lobe pneumonia which is new since 03/29/2020
--- NOTE | 2020-04-25 18:31 | ECG_ITS ---
[facility] Test Date: 2020-04-25 Pat Name: Natalee Leach Department: Room: Gender: Female Founding Partner: : 1960 Requested By: Devin James Order Number: [id number] Jennifer MD: Cristy Fabian M.D. Measurements Intervals [place] Rate: 92 P: 76 TN: 130 QRS: 75 QRSD: 77 T: 78 QT: 296 QTc: 367 Interpretive Statements SINUS RHYTHM POSSIBLE LEFT ATRIAL ENLARGEMENT [-0.1mV P WAVE IN V1/V2] SEPTAL MYOCARDIAL INFARCTION , OF INDETERMINATE AGE [40+ ms Q WAVE IN V1/V2] Compared to ECG 10/11/2017 10:11:43 No significant changes Electronically Signed On 04-26-2020 16:06:12 [employer]YWALL APPLICATION SUPERVISOR by Cristy Fabian M.D. [email or web address]
[2020-04-25 19:17] LABS: Basophils # 0.1 10^3/uL (0.0-0.1); Basophils % 0.4 %; Eosinophils # 0.1 10^3/uL (0.0-0.8); Eosinophils % 0.5 %; Hematocrit 36.3 % (37.0-47.0); Hemoglobin 12.4 g/dL (11.5-15.3); Lymphocytes % 4.9 %; Mean Corpuscular HGB Conc 34.2 g/dL (30.0-36.0); Mean Corpuscular Hemoglobin 29.6 pg (28.0-34.0); Mean Corpuscular Volume 86.6 fL (81-99); Mean Platelet Volume 9.8 fL (7.4-10.4); Monocytes # 1.4 10^3/uL (0.2-0.9); Monocytes % 7.1 %; Neutrophils # 17.58 10^3/uL (1.8-7.7); Neutrophils % 86.1 %; Nucleated Red Blood Cells % 0 %; Platelet Count 527 10^3/cmm (130-400); Red Blood Count 4.19 10^6/uL (4.1-5.3); White Blood Count 20.4 10^3/uL (4.0-10.0)
[2020-04-25 19:39] LABS: Alanine Aminotransferase 6 U/L (0-33); Albumin Level 2.9 g/dL (3.5-5.2); Alkaline Phosphatase 104 IU/L (35-105); Anion Gap 13.8 (5-19); Aspartate Amino Transferase 10 U/L (0-32); Blood Urea Nitrogen 15 mg/dL (8-23); Calcium 8.7 mg/dL (8.5-10.5); Carbon Dioxide 30 mmol/L (22-29); Chloride 89 mmol/L (98-107); Creatinine Clr Calc Pharmacy 94.2461; Globulin 3.5 g/dL (1.3-4.6); Glomerular Filtration Rate 125.9 mL/min (90-130); Glucose 90 mg/dL (65-115); Osmolality Calculated 270 mOsm/kg (285-295); Sodium 130 mmol/L (136-145); Total Bilirubin 0.6 mg/dL (0.15-1.2); Total Protein 6.4 g/dL (6.6-8.7)
[2020-04-25 19:40] LABS: Potassium 2.8 mmol/L (3.5-5.1)
[2020-04-25] MEDS: ipratropium-albuterol 3 mL Neb 6 ML INHALATION (19:44)
[2020-04-25] MEDS: sodium chloride 0.9% 1,000 ML 999 ML IV (19:52)
[2020-04-25] MEDS: cefTRIAXone 2,000 MG in sodium chloride 0.9% (plus) 50 ML 100 MG IV (19:58)
[2020-04-25] MEDS: potassium chloride premix 100 ML 50 MEQ IV (20:21)
[2020-04-25] MEDS: lidocaine 1% INJ 20 mL 5 ML IV (20:22)
--- NOTE | 2020-04-25 20:30 | CTR_ITS ---
PROCEDURE INFORMATION: Exam: CT Angiography Chest With Contrast Exam date and time: 04/25/2020 9:36 PM Age: 59 years old Clinical indication: Shortness of breath; Prior surgery; Surgery date: 6+ months; Surgery type: Mast w recon, port w removal, R lobectomy; Patient HX: C/O SOB 9 days S/P ankle surgery TECHNIQUE: Imaging protocol: Computed tomographic angiography of the chest with contrast. 3D rendering (Not supervised by radiologist): MIP and/or 3D reconstructed images were created by the technologist. Radiation optimization: All CT scans at this facility use at least one of these dose optimization techniques: automated exposure control; mA and/or kV adjustment per patient size (includes targeted exams where dose is matched to clinical indication); or iterative reconstruction. Contrast material: OMNI 350; Contrast volume: 62 ml; Contrast route: INTRAVENOUS (IV); COMPARISON: CT chest w con* [id number] 12/30/2013 9:28 AM RADIATION DOSE METRICS: Total DLP (mGy-cm): 366.68 FINDINGS: Pulmonary arteries: Normal. No pulmonary emboli. Aorta: Unremarkable. No aortic aneurysm. No aortic dissection. Lungs: Extensive irregular micro nodular changes in both lungs. Geographic areas of ground-glass attenuation scattered in the left upper lobe. Mild diffuse septal thickening throughout the right lower lobe. 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 Pleural spaces: Unremarkable. No pneumothorax. No pleural effusion. Heart: Unremarkable. No cardiomegaly. No pericardial effusion. Mediastinal space: Postoperative changes in the right hilum. Multiple surgical clips. Most likely prior lobectomy. Lymph nodes: Unremarkable. No enlarged lymph nodes. Liver: Several small left hepatic lobe circumscribed low-attenuation lesions stable from prior. Bones/joints: There is an L2 vertebral compression fracture of indeterminate acuity which is also incompletely assessed by this examination. No thoracic spine lesion. No thoracic vertebral fracture. Soft tissues: Left mastectomy postsurgical changes. CT/CT angio chest PE protcl [id number] IMPRESSION: 1. Extensive nonspecific pneumonia in both lungs. 2. 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 Endobronchial malignancy cannot be excluded. Numerous surgical clips are present in the right hilum consistent with prior thoracic surgery. 3. Negative for pulmonary embolism. 4. Age indeterminate L2 vertebral fracture. Correlate with available comparison imaging. Radiation Dose CTDIVOL = (mGy): DLP = 366.68 (mGy-cm)
[2020-04-25 21:05] LABS: Lactic Sepsis W/Reflex 1.1 mmol/L (0.5-2.2)
[2020-04-25] MEDS: iohexol 350 mg/mL 100 mL Btl IV (21:55)
--- NOTE | 2020-04-25 23:32 | P.HP_ITS ---
Providers/Chief Complaint Admitting Physician: reta Mancia Primary Care Provider: Flor Kumar Chief Complaint: WEAKNESS History of Present Illness Natalee Leach is a 59 year old female who presented to the emergency room with a chief complaint of weakness. She is currently not wanting to review her history again so I am a bit limited in what I can get currently. She had repair of a right ankle fracture on April 16 here at [facility] by Dr. Torres. Since surgery she has been weak and tired. I am not sure what the inciting event was for her to come to the emergency room specifically this evening. I am not sure who she lives with her if she is alone. She denies taking very many prescribed pain medications because she does not want to get hooked. She does hurt all over. She has not had any falls but has had difficulty getting around. She has not had much of an appetite. She denied any fever. She does not really describe any increase difficulty breathing, cough, hemoptysis. She does continue to smoke more than a pack of cigarettes a day. She has never required oxygen therapy. She has a history of 2 primary malignancies, breast cancer as well as lung cancer. She completed treatment with chemotherapy for lung cancer in 2019. She had her Port-A-Cath removed by Dr. Wilson in 2019. She had also had a lobectomy on the right. I am not sure the details of her breast cancer treatment currently. She has not had any follow-up with oncology since completing her chemotherapy. She does report weight loss. In the emergency room she was found to be hypoxemic. She denies ever having required oxygen therapy before. Work-up was undertaken and identified a white count of 20,000 with a left shift and chest x-ray findings of pneumonia. Given the history of recent surgery, she underwent CTA of the chest. While there was no PE patricia ntified patient had extensive micronodular changes to both lungs as well as an extensive endobronchial occlusion in the right lung beginning at the origin of the right mainstem bronchus. Right hilar surgical clips noted from previous pulmonary surgery. Given the findings, hypoxemia and elevated white count patient is admitted for further evaluation and treatment. The case was discussed Dr. Fortune briefly by the ER physician. No emergent indication for bronchoscopy. Patient was started on antibiotics and admitted to the floor. Information I was able to obtain from the patient as noted below otherwise not currently obtainable due to her not wanting to participate in discussions. Review of Systems Const: Reports: chills, body aches, change in appetite, change in weight (weight loss), fatigue and malaise; Denies: fever(s) ENMT: Denies: throat pain or nasal congestion Card: Reports: chest pain; Denies: palpitations or edema Resp: Reports: dyspnea, productive cough, non-productive cough, wheezing and pain on inspiration; Denies: hemoptysis GI: Reports: abdominal pain; Denies: nausea, vomiting, diarrhea or constipation : Denies: difficulty voiding Musc: Reports: back pain, extremity pain, muscle weakness and other (post op ankle pain, wearing boot) Skin/Breast: Denies: sores Neuro: Reports: weakness in extremities and difficulty walking Glenn/Lymph: Denies: other (bleeding) Medications/Allergies Home Medications Medication Instructions Recorded Confirmed Last Taken Type loratadine 10 mg tablet 10 mg PO QDAY 04/02/19 04/15/20 04/15/20 History gabapentin 300 mg PO TID 04/15/19 04/15/20 04/15/20 History quetiapine 200 mg PO BEDTIME 04/15/19 04/15/20 04/15/20 History quetiapine 25 mg tablet 25 mg PO DAILY 09/29/19 04/15/20 04/15/20 History supinator #1 each 09/29/19 04/15/20 Unknown Rx Katarzyna AFO ankle brace #1 ea 10/08/19 04/15/20 Unknown Rx Cam boot #1 ea 03/31/20 04/15/20 Unknown Rx hydrocodone-acetaminophen tab 04/26/20 04/26/20 Unknown History oxycodone-acetaminophen 04/26/20 04/26/20 Unknown History Allergies Allergy/AdvReac Type Severity Reaction Status Date / Time Sulfa (Sulfonamide Allergy vomiting Verified 04/25/20 18:19 Antibiotics) PFSH Acute PFSH: Medical History (Updated 04/26/20 @ 04:58 by Hina Mancia MD) Anxiety Cancer of left breast had surgery, other treatment not known currently DDD (degenerative disc disease), lumbar Lung cancer s/p lobectomy and chemotherapy, 2nd primary per patient Surgical History (Updated 04/26/20 @ 03:55 by Hina Mancia MD) H/O colonoscopy 2014 H/O foot surgery left x 2 right x 1 H/O removal of cyst abdomen H/O: hysterectomy vaginal History of breast implant removal (12/20/16) Explantation of postmastectomy implant, partial capsulotomy mastectomy site History of lobectomy of lung right History of open reduction and internal fixation (ORIF) procedure (12/08/14) left ankle, Dr Walden History of open reduction and internal fixation (ORIF) procedure (04/16/20) right bimalleolar ankle fracture, Dr Torres History of removal of Port-a-Cath (04/2019) S/P left mastectomy Status post left breast reconstruction Family History Other Cancer Heart disease Hypertension Denies family history of Anesthesia complication Bleeding disorder Social History (Updated 04/26/20 @ 04:34 by Hina Mancia MD) Smoking and tobacco status: current every day smoker cigarettes [ Other cigarette details: more than a pack per day ] Alcohol intake: never Current occupational status: disabled Vitals/I&O/Wt Last Vital Signs Temp 98.0 F 04/25/20 18:13 Pulse 82 04/25/20 23:00 Resp 14 04/25/20 23:00 BP 108/73 04/25/20 23:00 Pulse Ox 93 04/25/20 23:00 Weight last 48 hrs Weight 49.895 kg Physical Exam Const: OTHER: Thin build, awake, oriented to person, place and situation HENMT: OTHER: Bitemporal wasting, dry mucous membranes Eye: OTHER: Extraocular movements grossly intact Neck/C-Spine: OTHER: Supple Resp: OTHER: Scattered wheezes, crackles right base, occasional cough during examination nonproductive Cardio: OTHER: Regular rate and rhythm GI: OTHER: Abdomen soft, nontender, positive bowel sounds Extremity: NARRATIVE EXTREMITY EXAM: Able to move toes of right foot, postoperative boot intact, no pain with palpation of left foot Neuro: OTHER: Face symmetric, speech clear, moves all extremities Skin: OTHER: Skin is dry, visible skin surface without acute rashes Data : 04/25/20 19:13 04/25/20 19:13 Other Labs: Laboratory Last Values WBC 20.4 10^3/uL (4.0-10.0) H 04/25/20 19:13 RBC 4.19 10^6/uL (4.1-5.3) 04/25/20 19:13 Hgb 12.4 g/dL (11.5-15.3) 04/25/20 19:13 Hct 36.3 % (37.0-47.0) L 04/25/20 19:13 MCV 86.6 fL (81-99) 04/25/20 19:13 MCH 29.6 pg (28.0-34.0) 04/25/20 19:13 MCHC 34.2 g/dL (30.0-36.0) 04/25/20 19:13 RDW 15.0 % (12.1-15.1) 04/25/20 19:13 Plt Count 527 10^3/cmm (130-400) H 04/25/20 19:13 MPV 9.8 fL (7.4-10.4) 04/25/20 19:13 Neut % (Auto) 86.1 % 04/25/20 19:13 Lymph % (Auto) 4.9 % 04/25/20 19:13 Porter % (Auto) 7.1 % 04/25/20 19:13 Eos % (Auto) 0.5 % 04/25/20 19:13 Baso % (Auto) 0.4 % 04/25/20 19:13 Neut # (Auto) 17.58 10^3/uL (1.8-7.7) H 04/25/20 19:13 Lymph # (Auto) 1.0 10^3/uL (0.8-4.8) 04/25/20 19:13 Porter # (Auto) 1.4 10^3/uL (0.2-0.9) H 04/25/20 19:13 Eos # (Auto) 0.1 10^3/uL (0.0-0.8) 04/25/20 19:13 Baso # (Auto) 0.1 10^3/uL (0.0-0.1) 04/25/20 19:13 Nucleated RBC % (auto) 0 % 04/25/20 19:13 Nucleated RBCs # 0.0 /100WBC 04/25/20 19:13 Sodium 130 mmol/L (136-145) L 04/25/20 19:13 Potassium 2.8 mmol/L (3.5-5.1) L* 04/25/20 19:13 Chloride 89 mmol/L (98-107) L 04/25/20 19:13 Carbon Dioxide 30 mmol/L (22-29) H 04/25/20 19:13 Anion Gap 13.8 (5-19) 04/25/20 19:13 BUN 15 mg/dL (8-23) 04/25/20 19:13 Creatinine 0.5 mg/dL (0.5-0.9) 04/25/20 19:13 GFR Calculation 125.9 mL/min (90-130) 04/25/20 19:13 Glucose 90 mg/dL (65-115) 04/25/20 19:13 Calculated Osmolality 270 mOsm/kg (285-295) L 04/25/20 19:13 Lactic Acid 1.1 mmol/L (0.5-2.2) 04/25/20 20:41 Calcium 8.7 mg/dL (8.5-10.5) 04/25/20 19:13 Total Bilirubin 0.6 mg/dL (0.15-1.2) 04/25/20 19:13 AST 10 U/L (0-32) 04/25/20 19:13 ALT 6 U/L (0-33) 04/25/20 19:13 Alkaline Phosphatase 104 IU/L (35-105) 04/25/20 19:13 Total Protein 6.4 g/dL (6.6-8.7) L 04/25/20 19:13 Albumin 2.9 g/dL (3.5-5.2) L 04/25/20 19:13 Globulin 3.5 g/dL (1.3-4.6) 04/25/20 19:13 CXR: Radiologist's impression: FINDINGS: Lungs: Patchy opacities in the right lower lobe new from prior. Pre-existing right lung volume loss stable from prior. Surgical clips within the right hilum. Pleural spaces: Unremarkable. No pleural effusion. No pneumothorax. Heart/Mediastinum: Cardiomediastinal silhouette is unremarkable. Bones/joints: Unremarkable. XR/XR chest 1V portable [id number] IMPRESSION: Development of right lower lobe pneumonia which is new since 03/29/2020 CTA Chest: Radiologist's impression: FINDINGS: Pulmonary arteries: Normal. No pulmonary emboli. Aorta: Unremarkable. No aortic aneurysm. No aortic dissection. Lungs: Extensive irregular micro nodular changes in both lungs. Geographic areas of ground-glass attenuation scattered in the left upper lobe. Mild diffuse septal thickening throughout the right lower lobe. 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 Pleural spaces: Unremarkable. No pneumothorax. No pleural effusion. Heart: Unremarkable. No cardiomegaly. No pericardial effusion. Mediastinal space: Postoperative changes in the right hilum. Multiple surgical clips. Most likely prior lobectomy. Lymph nodes: Unremarkable. No enlarged lymph nodes. Liver: Several small left hepatic lobe circumscribed low-attenuation lesions stable from prior. Bones/joints: There is an L2 vertebral compression fracture of indeterminate acuity which is also incompletely assessed by this examination. No thoracic spine lesion. No thoracic vertebral fracture. Soft tissues: Left mastectomy postsurgical changes. CT/CT angio chest PE protcl [id number] IMPRESSION: 1. Extensive nonspecific pneumonia in both lungs. 2. 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 Endobronchial malignancy cannot be excluded. Numerous surgical clips are present in the right hilum consistent with prior thoracic surgery. 3. Negative for pulmonary embolism. 4. Age indeterminate L2 vertebral fracture. Correlate with available comparison imaging. A&P Assessment and plan (1) Weakness: Status: Acute (2) Hypoxemia: Status: Acute (3) Pneumonia: Status: Acute Qualifiers: Laterality: right Lung location: lower lobe of lung Pneumonia type: due to unspecified organism Qualified Code(s): J18.9 - Pneumonia, unspecified organism (4) Hypokalemia: Status: Acute (5) History of open reduction and internal fixation (ORIF) procedure: Status: Acute (6) Lung cancer: Status: Chronic Qualifiers: Laterality: right Lung location: upper lobe of lung Qualified Code(s): C34.11 - Malignant neoplasm of upper lobe, right bronchus or lung (7) Cancer of left breast: Status: Chronic Qualifiers: Breast location: unspecified site of breast Estrogen receptor status: unspecified Patient sex: female Qualified Code(s): C50.912 - Malignant neoplasm of unspecified site of left female breast (8) Nicotine dependence, cigarettes, with other nicotine-induced disorders: Status: Acute Additional A&P Information Inpatient admission Levaquin and Zosyn Breathing treatments as needed Oxygen therapy as much as patient will allow, she is currently refusing oxygen. Oxygen saturations are 87% on room air. I have offered to humidify the oxygen and attempted to explain reasons for ordering it and how low oxygen levels can make her more tired or weak. She remains disinterested in wearing the oxygen right now. Pulmonology has been consulted due to obstructing endobronchial lesion and other abnormalities noted on CT scan. I am not sure that patient will agree to see pulmonology. I attempted to discuss with her that there was concern about cancer being back and she indicated that she was done with cancer and did not want to hear about it and would not agree to any further evaluation or treatment. I tried to elucidate if she is had the endobronchial lesion previously. I think I can see similar changes to the right mainstem bronchus on previous plain films. Patient did not care to elaborate. Attempts to review CODE STATUS were also unsuccessful. Difficult to me to know if this is baseline, from acute issues or reaction to being told about possibility of the cancer being back. Monitored saturations off of oxygen for duration of my time in room and she was 87-89% RA laying flat. Input from pulmonology may help shape future conversations with patient Nicotine patch as needed Patient has no interest in smoking cessation Covid testing was ordered due to anticipation of need for bronchoscopy. Rapid specimen was barely able to be collected adequately and she refused the PCR test. Recently prescribed hydrocodone and oxycodone have been ordered if needed for moderate to severe pain along with gabapentin I decreased dose of Seroquel to 100 at bedtime at least currently Received some potassium replacement in the emergency room Continue some IV fluids with potassium Recheck laboratory studies in the morning SCDs and Lovenox for DVT prophylaxis Anticipate need for oxygen therapy at discharge, but as indicated she currently states that she will not take oxygen at home with her We will need to attempt to address goals of care at some point if she is agreeable I have currently listed her as full code as unable to get a response from her beyond questions about whether or not I think she will within the next 24 hours. I explained to her that I did not and that I ask everyone about goals of care during the course of hospital stay. Attestations Medical Necessity Statement*: Anticipated stay greater than 2 midnights in a patient with right-sided pneumonia, associated hypoxemia in a patient who has not previously been on oxygen, apparent endobronchial lesion, most likely cancer given prior history. Plans are as indicated. Coding Level of Care Code Acute Record Center Coordinator for g Fwd Diagnoses Weakness R53.1 Hypoxemia R09.02 Pneumonia J18.9 Laterality: right Lung location: lower lobe of lung Pneumonia type: due to unspecified organism Hypokalemia E87.6 History of open reduction and internal fixation (ORIF) procedure Z98.890 Lung cancer C34.11 Laterality: right Lung location: upper lobe of lung Cancer of left breast C50.912 Breast location: unspecified site of breast Estrogen receptor status: unspecified Patient sex: female Nicotine dependence, cigarettes, with other nicotine-induced disorders F17.218
--- NOTE | 2020-04-25 23:47 | PC.NURSE ---
Patient refused SARS COV-2 RNA swab
[2020-04-26 00:13] LABS: SARS Covid-2 Antigen Negative (Negative)
[2020-04-26 00:16] VITALS: BP 95/57; PULSE 84; RESP 20; TEMP 36.6; O2SAT 95
[2020-04-26] MEDS: levofloxacin-dextrose 5 % 750 MG/150 ML PREMIX 100 MG IV (00:56)
[2020-04-26] MEDS: enoxaparin 40 mg/0.4 mL Syringe SUBCUT (00:56)
[2020-04-26] MEDS: sodium chlor 0.9% + KCl 20 mEq 20 MEQ/1,000 ML BAG 100 MEQ IV (00:57)
[2020-04-26 04:00] VITALS: BP 104/69; PULSE 74; RESP 16; TEMP 36.9; O2SAT 90
[2020-04-26 04:32] VITALS: PULSE 88; RESP 16; O2SAT 93
[2020-04-26] MEDS: HYDROcodone-acetaminophen 5-325 mg Tablet 1 TAB PO (06:04)
[2020-04-26] MEDS: piperacillin-tazobactam 3.375 GM in sodium chloride 0.9% (plus) 50 ML IV (06:04)
[2020-04-26 06:22] LABS: Basophils # 0.1 10^3/uL (0.0-0.1); Basophils % 0.3 %; Hematocrit 36.6 % (37.0-47.0); Hemoglobin 12.3 g/dL (11.5-15.3); Lymphocytes # 0.8 10^3/uL (0.8-4.8); Lymphocytes % 4.1 %; Mean Corpuscular HGB Conc 33.6 g/dL (30.0-36.0); Mean Corpuscular Hemoglobin 29.3 pg (28.0-34.0); Mean Corpuscular Volume 87.1 fL (81-99); Mean Platelet Volume 10.2 fL (7.4-10.4); Monocytes # 0.1 10^3/uL (0.2-0.9); Monocytes % 0.7 %; Neutrophils # 17.63 10^3/uL (1.8-7.7); Neutrophils % 93.9 %; Nucleated Red Blood Cells % 0 %; Platelet Count 555 10^3/cmm (130-400); Red Cell Distribution Width 15.2 % (12.1-15.1); White Blood Count 18.8 10^3/uL (4.0-10.0)
[2020-04-26 06:58] LABS: Procalcitonin 0.28 ng/mL (0-0.5)
[2020-04-26 07:08] LABS: Anion Gap 15.8 (5-19); Blood Urea Nitrogen 14 mg/dL (8-23); Calcium 8.2 mg/dL (8.5-10.5); Carbon Dioxide 26 mmol/L (22-29); Chloride 97 mmol/L (98-107); Creatinine Clr Calc Pharmacy 117.8076; Glomerular Filtration Rate 162.8 mL/min (90-130); Glucose 98 mg/dL (65-115); Magnesium 2.2 mg/dL (1.7-2.3); Osmolality Calculated 280 mOsm/kg (285-295); Phosphorus 2.6 mg/dL (2.5-4.5); Potassium 3.8 mmol/L (3.5-5.1); Sodium 135 mmol/L (136-145)
[2020-04-26 08:00] VITALS: BP 110/61; PULSE 71; RESP 16; TEMP 36.8; O2SAT 92
[2020-04-26 09:36] VITALS: PULSE 84; RESP 18; O2SAT 94
--- NOTE | 2020-04-26 11:11 | PC.NURSE ---
SHIFT SUMMARY THIS NURSE WAS IN THIS PATIENTS ROOM AT APPROXIMATELY 0830 THIS MORNING PASSING MEDICATIONS AND COMPLETING A NEURO ASSESSMENT. THE PATIENT HAS BEEN NONCOMPLIANT. SHE WOULD ONLY TELL ME HER NAME AND BIRTHDAY. SHE REFUSED TO ANSWER WHAT YEAR IT IS, WHO THE PRESIDENT IS, WHERE SHE IS AT, ETC. ALL SHE WOULD SAY WHEN I ASKED HER A QUESTION WAS I DON'T CARE, I AM NOT ANSWERING ANYTHING, I AM LEAVING WHEN MY RIDE GETS HERE. I TRIED EXPLAINING TO HER THE REASON SHE WAS HERE AND THE MEDICATIONS SHE IS GETTING ARE TO HELP HER GET BETTER, SHE DISAGREED. SHE REFUSED HER MORNING MEDICATIONS. I TRIED TALKING TO HER AND SEEING IF SHE WOULD LET THE DOCTOR TALK TO HER SHE SAID ONLY IF HE GETS HERE BEFORE MY DOES. I ASKED HER TO GIVE US A CHANGE TODAY BUT SHE REFUSED SHE SAID SHE WAS DONE AND JUST WANTS TO GO HOME. I WENT AND GOT MY SIGNING AGENT, Blessing MARES RN, MSN, AND TOLD HER WHAT WAS HAPPENING AND SHE CAME AND TALKED TO THE PATIENT. THE PATIENT CONTINUED TO SAY THE SAME THING, THAT SHE WANTED TO LEAVE, SHE DOESN'T CARE WHAT WE HAVE TO SAY. THE PATIENTS SHOWED UP TO THE HOSPITAL ED AND THEN I WAS NOTIFIED HE WAS HERE. I STOPPED THE PATIENTS FLUIDS AND IV ANTIBIOTICS AND THEN REMOVED THE PATIENTS IV. AFTER ASKING THE PATIENT TO SIGN THE AMA FORM SHE SAID SHE WASN'T SIGNING ANYTHING AND THREW IT BACK AT US. I HAD AN AID IN WITH ME AT THE TIME. THE AID WENT AND CALLED SECURITY AND THE COMBINATION WELDER CAME UP HERE TO ASSIST IT APPEARED THAT SHE WAS GETTING VERY AGITATED. AFTER HE GOT UP HERE, THE COMBINATION WELDER, THE AID, AND MY SELF WENT BACK IN THE PATIENTS ROOM AND ASKED HER IF SHE WOULD SIGN THE FORM ONE MORE TIME AND SHE DID. WE THEN GOT HER IN A WHEELCHAIR, GATHERED HER THINGS, AND THE AID TOOK HER DOWNSTAIRS. THE SIGNED AMA FORM WAS PUT IN THE PATIENTS CHART. THE DOCTOR WAS NOTIFIED. PT LEFT WITH HER BELONGINGS, NO IV, AND THE EXPLANATION OF THE RISKS OF HER HEALTH DUE TO HER CHOOSING TO LEAVE AND HER NEEDING OXYGEN. SHE SAID SHE WAS FINE, SHE DID NOT NEED ANYTHING, JUST TO BE HOME.
--- NOTE | 2020-04-26 11:50 | P.DS_ITS ---
Discharge Providers Date of Admission: 04/26/20 05:24 Date of Discharge: April 26, 2020 Attending Provider at Admission: Hina Mancia MD Attending Provider at Discharge: Deion Lockhart Primary Care Provider: Flor Kumar Diagnoses at Discharge Discharge Diagnosis (1) Weakness: Status: Acute (2) Hypoxemia: Status: Acute (3) Pneumonia: Status: Acute Qualifiers: Laterality: right Lung location: lower lobe of lung Pneumonia type: due to unspecified organism Qualified Code(s): J18.9 - Pneumonia, unspecified organism (4) Hypokalemia: Status: Acute (5) History of open reduction and internal fixation (ORIF) procedure: Status: Acute Permanent problem details: right bimalleolar ankle fracture, Dr Torres (6) Lung cancer: Status: Chronic Permanent problem details: s/p lobectomy and chemotherapy, 2nd primary per patient Qualifiers: Laterality: right Lung location: upper lobe of lung Qualified Code(s): C34.11 - Malignant neoplasm of upper lobe, right bronchus or lung (7) Cancer of left breast: Status: Chronic Permanent problem details: had surgery, other treatment not known currently Qualifiers: Breast location: unspecified site of breast Estrogen receptor status: unspecified Patient sex: female Qualified Code(s): C50.912 - Malignant neoplasm of unspecified site of left female breast (8) Nicotine dependence, cigarettes, with other nicotine-induced disorders: Status: Acute Reason for Visit Reason for Visit: WEAKNESS Hospital Course Hospital Course 59-year-old lady with history of breast cancer in 2010, status post mastectomy, chemotherapy, hormonal therapy, second primary cancer lung squamous cell carcinoma status post right upper and middle lobectomy, chemotherapy in , current smoker, recently with right ankle fracture repaired here on April 16 reportedly has been weak since surgery. She notes recently being inactive. In ER noted to have new requirement of initially 4 L oxygen by nasal cannula, subsequently down to 2 L. Not normally requiring supplemental oxygen. On presentation noted leukocytosis 20.4. Platelets 527. Potassium 2.8. Noted mild hyponatremia 130. Lactic acid was 1.1. Rapid COVID-19 antigen was negative. PCR was requested and is pending. Chest x-ray with noted right lower lobe infiltrates concerning for pneumonia new since 03/29 EKG not suggestive of acute [place]. Appears to have a Q-wave in V1, V2. Due to immobility, recent surgery, CTA chest was obtained without noted PE. But with noted extensive endobronchial occlusion and the right colon beginning at the origin of right mainstem bronchus. Endobronchial malignancy cannot be excluded. Numerous surgical clips present in the right hilum consistent with prior thoracic surgery. Noted extensive nonspecific pneumonia in both lungs. Age- indeterminate L2 vertebral fracture. Discussions of the results including possible differential diagnosis were done with her, although she declined to fur ther psrticipate in conversation reportedly make a statement that she was done with cancer . With pending COVID-19 PCR, she was maintained in isolation. Started on antibiotic treatment with Levaquin, Zosyn. In ER she initially received Solu-Medrol and Rocephin. Unfortunately she was not forthcoming with her interview initially, and subsequently with treatment. With saturations ranging 87-low 90s, repeatedly declining oxygen therapy, even appears stating admission that she would not be taking oxygen at home with her. Additional pulmonology assessment was being arranged due to lesion obstructing right bronchial, concern for possible recurrence of malignancy, new hypoxia, pneumonia, and treatment was being continued for pneumonia, with still pending additional assessments, however, she has left AGAINST MEDICAL ADVICE before she could be seen, reportedly declining to wait for oxygen to be set up and refusing any additional assessments or treatments. I was able to reach her by phone, asked her again to return to ER anytime given hypoxia and that she has not been set up for oxygen, and that her assessment treatment has not been complete with possibility of disability or life-thr eatening outcome, or if not to at least see her primary care provider and soonest available appointment, as well as let her know about electronically prescribed course of Levaquin. She verbalized understanding and agreement. She also confirmed the antibiotic and the name of the pharmacy. Physical Exam Narrative: EXAM NARRATIVE: Left before being seen. Discharge Data Data Completed and Pending: Completed Studies During Hospitalization Category Date Time Status CT angio chest PE protcl [id number] Urge nt Cat Scan 04/25/20 20:30 Completed XR chest 1V nikolai ble [id number] Stat Exams 04/25/20 18:31 Completed Pending at discharge Category Date Time Status [facility] SARS-CoV-2 RNA Routine Lab 04/25/20 23:24 Uncollected Labs from last 24 hours 04/26/20 04/26/20 04/25/20 05:53 05:53 23:50 WBC 18.8 H RBC 4.20 Hgb 12.3 Hct 36.6 L MCV 87.1 MCH 29.3 MCHC 33.6 RDW 15.2 H Plt Count 555 H MPV 10.2 Neut % (Auto) 93.9 Lymph % (Auto) 4.1 [place] % (Auto) 0.7 Eos % (Auto) 0.0 Baso % (Auto) 0.3 Neut # (Auto) 17.63 H Lymph # (Auto) 0.8 [place] # (Auto) 0.1 L Eos # (Auto) 0.0 Baso # (Auto) 0.1 Nucleated RBC % (a uto) 0 Nucleated RBCs # 0.0 Sodium 135 L Potassium 3.8 Chloride 97 L Carbon Dioxide 26 Anion Gap 15.8 BUN 14 Creatinine 0.4 L GFR Calculation 162.8 H Glucose 98 Calculated Osmolal ity 280 L Lactic Acid Calcium 8.2 L Phosphorus 2.6 Magnesium 2.2 Total Bilirubin AST ALT Alkaline Phosphata se Total Protein Albumin Globulin Procalcitonin 0.28 SARS-CoV-2 Ag (Rap id) Negative 04/25/20 04/25/20 04/25/20 20:41 19:13 19:13 WBC 20.4 H RBC 4.19 Hgb 12.4 Hct 36.3 L MCV 86.6 MCH 29.6 MCHC 34.2 RDW 15.0 Plt Count 527 H MPV 9.8 Neut % (Auto) 86.1 Lymph % (Auto) 4.9 [place] % (Auto) 7.1 Eos % (Auto) 0.5 Baso % (Auto) 0.4 Neut # (Auto) 17.58 H Lymph # (Auto) 1.0 [place] # (Auto) 1.4 H Eos # (Auto) 0.1 Baso # (Auto) 0.1 Nucleated RBC % (a uto) 0 Nucleated RBCs # 0.0 Sodium 130 L Potassium 2.8 L* Chloride 89 L Carbon Dioxide 30 H Anion Gap 13.8 BUN 15 Creatinine 0.5 GFR Calculation 125.9 Glucose 90 Calculated Osmolal ity 270 L Lactic Acid 1.1 Calcium 8.7 Phosphorus Magnesium Total Bilirubin 0.6 AST 10 ALT 6 Alkaline Phosphata se 104 Total Protein 6.4 L Albumin 2.9 L Globulin 3.5 Procalcitonin SARS-CoV-2 Ag (Rap id) Vitals: Last Vital Signs Temp 98.2 F 04/26/20 08:00 Pulse 84 04/26/20 09:36 Resp 18 04/26/20 09:36 BP 110/61 04/26/20 08:00 Pulse Ox 94 04/26/20 09:36 Discharge Plan Discharge Patient Disposition: Left Against Medical Advice Condition: Stable Prescriptions: New levofloxacin 750 mg tablet 750 mg PO DAILY 7 Days Qty: 7 RF: 0 No Action quetiapine [Seroquel] 25 mg tablet 25 mg PO DAILY RF: 0 (DME) supinator See Rx Instructions .ROUTE .MEDSUPPLY Qty: 1 RF: 0 loratadine [Claritin] 10 mg tablet 10 mg PO QDAY RF: 0 (DME) Cam boot See Rx Instructions .Route .MEDSUPPLY Qty: 1 RF: 0 (DME) Katarzyna AFO ankle brace See Rx Instructions .Route .MEDSUPPLY Qty: 1 RF: 0 quetiapine 200 mg tablet 200 mg PO BEDTIME RF: 0 gabapentin 300 mg Capsule 300 mg PO TID RF: 0 hydrocodone-acetaminophen 10-325 mg tablet 1 tab PO Q6H PRN (Reason: Pain) RF: 0 oxycodone-acetaminophen 10-325 mg tablet 1 tab PO Q6H PRN (Reason: Pain) RF: 0 Referrals: Zhang Fortune MD [Physician] - 1-3 days Flor Kumar FNP [Primary Care Provider] - 1-3 days Mehul Olmos MD [Staff Physician] - 1-3 days Discharge Attestations Time Spent in Discharge Care*: greater than 30 min Quality Metrics Clinical Quality Measures During this hospital stay, did patient experience: None Coding Level of Care Code Acute 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
--- NOTE | 2020-04-27 11:06 | PC.NURSE ---
Patient called inquiring about the antibiotic that was called in for her on 04/27. She states that a physician called her and stated yesterday afternoon that he was calling in the Rx. I spoke with Dr. Lockhart and he states that he attempted to call Levaquin in to [facility] and requested I call it in. I called [facility] and spoke with Nima and gave verbal order for Levaquin 750 mg 1 tablet PO daily for 7 days, no refills. He verbalizes understanding and states he will get that filled for the patient. I called back and spoke with the patient and informed her of this. She denies further needs at this time.
== END 2020-04-26 10:30 | disposition left against medical advice (07) | DRG 194 ==
LOC: ER 18:28 → MEDSURG 04-26 02:28
PROVIDERS: Admitting Provider Hospitalist; Emergency Provider Physician Assistant; PCP Nurse Practitioner Family; Visit Provider Internal Medicine
DX: J18.9 Pneumonia, unspecified organism (principal); C34.11 Malignant neoplasm of upper lobe, right bronchus or lung; Z85.3 Personal history of malignant neoplasm of breast; F17.210 Nicotine dependence, cigarettes, uncomplicated; Z85.118 Personal history of other malignant neoplasm of bronchus and lung; Z92.21 Personal history of antineoplastic chemotherapy; Z90.2 Acquired absence of lung [part of]; F41.9 Anxiety disorder, unspecified; M51.36 Other intervertebral disc degeneration, lumbar region; Z90.12 Acquired absence of left breast and nipple; E87.6 Hypokalemia; R09.02 Hypoxemia; S82.841D Displaced bimalleolar fracture of right lower leg, subsequent encounter for closed fracture with routine healing; X58.XXXD Exposure to other specified factors, subsequent encounter; Z92.23 Personal history of estrogen therapy; Z53.29 Procedure and treatment not carried out because of patient's decision for other reasons
CPT/HCPCS: 36415; 71045; 71275; 80048; 80053; 83605; 83735; 84100; 84145; 85025; 87426; 93005; 94640; 96365; 96366; 96367; 96372; 96375; 99285; G0378; J0696; J1650; J1956; J2543; J2930; J3480; J7030; Q9967

== ENCOUNTER → 2020-04-29 11:33 | Outpatient (BNVA) | payer MEDICARE, MEDICAID, SELFPAY | PROVIDERS: PCP Nurse Practitioner Family; Visit Provider Podiatrist Foot & Ankle Surgery | DX: S82.841G Displaced bimalleolar fracture of right lower leg, subsequent encounter for closed fracture with delayed healing (principal); X58.XXXD Exposure to other specified factors, subsequent encounter | CPT/HCPCS: 73610 ==

== ENCOUNTER → 2020-05-13 12:55 | Outpatient (BNVA) | payer MEDICARE, MEDICAID, SELFPAY | PROVIDERS: PCP Nurse Practitioner Family; Visit Provider Podiatrist Foot & Ankle Surgery | DX: M25.571 Pain in right ankle and joints of right foot (principal); S82.841G Displaced bimalleolar fracture of right lower leg, subsequent encounter for closed fracture with delayed healing; Z98.890 Other specified postprocedural states; W19.XXXD Unspecified fall, subsequent encounter | CPT/HCPCS: 73610 ==

== ENCOUNTER → 2020-05-28 09:12 | Outpatient (BNVA) | payer MEDICARE, MEDICAID, SELFPAY | PROVIDERS: PCP Nurse Practitioner Family; Visit Provider Internal Medicine Critical Care Medicine | DX: J44.9 Chronic obstructive pulmonary disease, unspecified (principal); Z20.822 Contact with and (suspected) exposure to COVID-19 | CPT/HCPCS: 87635 ==

== ENCOUNTER 2020-06-02 06:00 | Outpatient (CLI) | payer MEDICARE, MEDICAID, SELFPAY | END 2020-06-02 06:01 | disposition home or self-care (01) | LOC: RAD 05-12 10:38 | PROVIDERS: PCP Nurse Practitioner Family; Visit Provider Podiatrist Foot & Ankle Surgery | DX: S82.841G Displaced bimalleolar fracture of right lower leg, subsequent encounter for closed fracture with delayed healing (principal); X58.XXXD Exposure to other specified factors, subsequent encounter | CPT/HCPCS: 73610 ==

== ENCOUNTER 2020-06-02 15:17 | Outpatient (CLI) | payer MEDICARE, MEDICAID, SELFPAY | END 2020-06-02 15:18 | disposition home or self-care (01) | LOC: SPT 15:18 | PROVIDERS: PCP Nurse Practitioner Family; Visit Provider Podiatrist Foot & Ankle Surgery | DX: Z46.89 Encounter for fitting and adjustment of other specified devices (principal); S82.841G Displaced bimalleolar fracture of right lower leg, subsequent encounter for closed fracture with delayed healing; X58.XXXD Exposure to other specified factors, subsequent encounter | CPT/HCPCS: 97760; L1902 ==

== ENCOUNTER 2020-06-03 06:07 | Day surgery (SDC) | payer MEDICARE, MEDICAID, SELFPAY ==
[2020-06-01 13:14] VITALS: BMI 16.0
[2020-06-03] VITALS (10 sets, daily range): BP systolic 108–130; BP diastolic 76–93; PULSE 74–98; RESP 16–20; TEMP 36.2–36.8; O2SAT 85–98
[2020-06-03] MEDS: scopolamine 1.5 Patch 1 PATCH TRANSDERMA (06:47)
[2020-06-03] MEDS: sodium chloride 0.9% 1,000 ML 30 ML IV (06:47)
--- NOTE | 2020-06-03 07:37 | ANES.PREANE2 ---
Pre-Anesthetic Assessment Pre-Anesthetic Assessment: Height/Weight: Height 1.8 m Weight 52.163 kg Temp Pulse Resp BP Pulse Ox 98.3 F 98 16 125/78 90 06/03/20 06:30 06/03/20 06:30 06/03/20 06:30 06/03/20 06:30 06/03/20 06:30 Preop Diagnosis: Right ankle bimalleolar fracture Proposed Procedure: Operation Date: 06/03/20 08:00 Proposed Procedures p Ebus 45993 [id number] J44.9(Not Applicable) - Velma De La Garza MD Familial anesthetic complications: none Was Beta Poonam taken within 24 hours: N/A Was Clonidine taken within 24 hours: N/A Last intake: Intake Last Liquid Date 06/02/20 Last Liquid Time 21:00 Last Solid Date 06/02/20 Last Solid Time 19:00 Last Intake: 21:00 Social: Social History: Tobacco Packs per day: 1 Pack years: 40+ Exam: Pre-Anes Outpt Exam: alert, oriented x 3 and clear to auscultation bilaterally (dim right) Airway: Submandibular: WNL Cervical ROM: WNL MP: 1 Dentition: False Pulmonary: Pulmonary: COPD, Cough, SEWELL and SOB Comments: HX LUNG CA, PT sob with dec spo2 with ambuation CV/HEM: CV/HEM: None reported : : None reported Hepatic: Hepatic: None reported GI: GI: None reported Metabolic: Metabolic: None reported Musc/skel: Musc/skel: Lower Back Pain and OA/DJD Neuropsych: Neuropsych: None reported Anesthetic Plan: ASA status: 3 Meds/Allergies Current Medications: Current Medications Generic Name Dose Route Start Last Admin Trade Name Freq PRN Reason Stop Dose Admin Sodium Chloride 1,000 mls @ 30 ml s/hr 06/03/20 06:30 06/03/20 06:47 Sodium Chloride 0.9% IV 06/04/20 06:29 30 mls/hr .Q24H JIM Administration PFSH Anesthesia PFSH: Medical History Anxiety Cancer of left breast had surgery, other treatment not known currently DDD (degenerative disc disease), lumbar Lung cancer s/p lobectomy and chemotherapy, 2nd primary per patient Surgical History H/O colonoscopy 2014 H/O foot surgery left x 2 right x 1 H/O removal of cyst abdomen H/O: hysterectomy vaginal History of breast implant removal (12/20/16) Explantation of postmastectomy implant, partial capsulotomy mastectomy site History of lobectomy of lung right History of open reduction and internal fixation (ORIF) procedure (12/08/14) left ankle, Dr Walden History of open reduction and internal fixation (ORIF) procedure (04/16/20) right bimalleolar ankle fracture, Dr Torres History of removal of Port-a-Cath (04/2019) S/P left mastectomy Status post left breast reconstruction Family History Other Cancer Heart disease Hypertension Denies family history of Anesthesia complication Bleeding disorder Social History Smoking and tobacco status: current every day smoker cigarettes Packs smoked per day: 1 Years cigarettes smoked: 40 Second hand smoke exposure: Yes Smoking risk assessment/counseling performed?: Yes Alcohol intake: never Counseling given: No Counseling given: No Lives independently: Yes Household members: none Marital status: Single Current occupational status: disabled History of recent travel: No Current gender identity: Female Data Anesthesia Cardiac Studies: No Data to Display
--- NOTE | 2020-06-03 07:54 | W.PM.OPSUD ---
Surgery/Procedure H&P Update DATE OF PROCEDURE: June 03, 2020 DATE H&P PERFORMED: 05/07/20 H&P UPDATE INFORMATION: I have reviewed H&P completed within last 30 days, I have examined patient prior to procedure and No changes to prior documentation PREOP DIAGNOSIS: Suspected lung cancer PLANNED PROCEDURE: Bronchoscopy with inspection of the airway, possible endobronchial biopsies, bronchoalveolar lavage, endobronchial sound guided transbronchial needle aspiration of lymph node and control of bleeding Operation Date: 06/03/20 08:00 Proposed Procedures p Ebus [id number] J44.9(Not Applicable) - Biplab MD Holli
[2020-06-03] MEDS: lidocaine 1% INJ 20 mL XX (08:18)
--- NOTE | 2020-06-03 08:24 | PM.OP ---
Operative Report Date of procedure: June 03, 2020 Pre-op Diagnosis: Suspected lung cancer Post-op diagnosis: same Brief History: The patient 59-year-old lady with a previous history of lung cancer for which she underwent right upper and middle lobectomy. The patient is coming back for a bronchoscopy procedure after recently PET positive lesion in the right paratracheal area. Procedure: Name of the procedure: Bronchoscopy with inspection of the airway, endobronchial biopsies, and control of bleeding Indication: Lung cancer Anesthesia: General anesthesia. Local anesthesia: The vocal cords, trachea, lizzie in the right and left mainstem bronchi were anesthetized with 1% lidocaine, 6 mL. Description of the procedure: The procedure was explained to the patient and the consent was obtained. The patient was brought to the OR. The patient underwent laryngeal mask airway for general anesthesia. Following induction of general anesthesia, the bronchoscope was advanced through the LMA. The left vocal cord was paralyzed. The bronchoscope was introduced through the vocal cords. The lower trachea appeared to be erythematous, no endotracheal lesion was seen. There was mucus in the trachea. The lizzie was splayed. The lizzie, the right and left mainstem bronchi are anesthetized with 1% lidocaine. In a systematic manner bilateral bronchial tree was then examined. The bronchoscope was advanced into the left mainstem bronchus. There was mild erythema, and mucus. The left upper lobe, lingula and left lower lobe bronchi were examined up to the third subsegmental level and no abnormalities were identified. There is no endobronchial lesion. The right mainstem bronchus was completely occluded by a exophytic soft tissue mass. Endobronchial biopsies were performed from the right mainstem bronchus endobronchial lesion. Samples: 1. The endobronchial biopsies are sent for histopathology. EBUS was not performed as there was a concern of blood dripping into the left mainstem bronchus and occluding it. Complications: There was no immediate complications.
[2020-06-03] MEDS: fentaNYL 50 mcg/mL INJ 2mL IVP (08:51)
--- NOTE | 2020-06-03 09:02 | SUR.PHASEI ---
pt awake alert states pain is better now since earlier pain meds given, pt resp even and unlabored pt not coughing pt on ra sats 96%
--- NOTE | 2020-06-03 09:23 | SUR.PHASEI ---
EARLIER 0900 NOTE WAS TIMED INCORRECTLY SHOULD BE FOR 0855, PT ON 3LNC AT 0900 SATS QUICKLY UP OVER 94% NO DISTRESS 0910 PT AWAKE ALERT STABLE TO GI LAB HANDOFF AT BEDSIDE.
--- NOTE | 2020-06-03 10:23 | PTH.EBUS ---
Endobronchial Ultrasound Specimen(s): Right mainstem bronchus endobronchial mass Gross: The specimen is received fresh in a slide labeled with the patient's name and MRN number and additionally labeled, right mainstem bronchus endobronchial mass and consists of 3 fragments of menjivar-white tissue measuring 0.1 cm each. To touch prep slides are prepared for rapid onsite evaluation. The tissue fragments are submitted in formalin for permanent sections. Preliminary Impression: Lung, right mainstem bronchus endobronchial mass , EBUS biopsy touch preparation rapid onsite evaluation: ?Clusters of atypical cells. - Specimen Information Pathologist: Carlin Ngo Date: 06/03/20 Specimen reported at what time: 08:31 - Clinician Specimen collection time: 08:23 Clinician reported to: Velma De La Garza
--- NOTE | 2020-06-03 20:46 | ANE.PACU2 ---
Inpatient post-anesthesia follow up: Airway intact: Yes Vital signs: Temperature 97.7 F Pulse Rate 85 Respiratory Rate 16 Blood Pressure 111/80 Pulse Oximetry [Qu alifying 91 Sp02 on Oxygen wit h Exercise] Pulse Oximetry [6 Minute 85 Exercise Test on R oom Air] Pulse Oximetry [Ro om Air at 89 Rest] Pulse Oximetry 91 Oxygen Delivery Me thod Room Air Oxygen Flow Rate 3 Fraction of Inspir ed Oxygen Hydration adequate: Yes Nausea and vomiting: No Pain level: 3 Mental status: Baseline
[2020-06-16 10:09] LABS: PD-L1 (Clone 22C3) by IHC BBPL See Report
== END 2020-06-03 10:16 | disposition home or self-care (01) ==
PROVIDERS: PCP Nurse Practitioner Family; Visit Provider Internal Medicine Critical Care Medicine
PROC: BB4BZZZ Ultrasonography of Pleura (ICD-10-PCS; principal; 2020-06-03 08:00)
PROC: 0BJ08ZZ Inspection of Tracheobronchial Tree, Via Natural or Artificial Opening Endoscopic (ICD-10-PCS; CPT 31622; 2020-06-03 08:00)
DX: C34.91 Malignant neoplasm of unspecified part of right bronchus or lung (principal); F17.210 Nicotine dependence, cigarettes, uncomplicated; J43.9 Emphysema, unspecified; M19.90 Unspecified osteoarthritis, unspecified site
CPT/HCPCS: 31625; 80500; 88305; 88342; 96361; 96374; J2370; J2704; J3010; J7030

== ENCOUNTER 2020-06-07 05:36 | Outpatient (CLI) | payer MEDICARE, MEDICAID, SELFPAY ==
--- NOTE | 2020-06-07 14:47 | ONC FU_ITS ---
Dr. Olmos follow up note Patient: Natalee Leach Unit #: [id number]: 1960 Dicatated By: Mehul Olmos M.D.Date of Visit:Jun 07, 2020 Onc Med Follow-up/Prog Note History of Present Illness: Ms Leach is a 59 year-old woman with grade 2 invasive ductal carcinoma of the left breast, stage IIIA (pT3, pN1a, M0), ER/CO positive and HER-2/sam negative. She was diagnosed with Squamous cell Lung cancer In October 2017 She has a complex psychiatric history. She was diagnosed with a left breast cancer in April 2010. Mammogram at that time showed a 3 cm suspicious lesion at the 3:00 position of the left breast. She underwent a total mastectomy with axillary node dissection and immediate reconstruction on 05/25/10. Her pathology revealed 5.3 cm moderately differentiated invasive ductal carcinoma, grade 2/3, with positive margins within 1 mm. It is unclear if she had re-resection. There was involvement in 2 out of 8 lymph nodes. Prognostic markers were notable for ER 99%, CO 3%, and HER-2/sam 0 by IHC. Thus, her disease was stage IIIA (pT3, pN1a, M0). She received adjuvant chemotherapy with Adriamycin and Cyclophosphamide for 4 cycles followed by Docetaxel for 4 cycles every [address] Lilly at [place]. The chemotherapy was complicated by significant hematological toxicity and peripheral neuropathy. She completed adjuvant radiation treatment on 02/16/11. She was lost to followup and self-referred to [facility] to establish care. She was first seen her in late June 2011. She was postmenopausal due to previous hysterectomy/bilateral salpingo-oophorectomy. She was started on adjuvant hormonal therapy with Arimidex 1 mg daily[address] A staging CT scan of the chest, abdomen, and pelvis on 08/10/11 showed no evidence of metastatic disease. She had right breast mammogram on 09/15/11 BI-RADS 1. CA 27-29 was 25. She had vitamin D insufficiency, and she continued on calcium and vitamin D. DEXA scan in January of 2011 had no osteoporosis. She was asked to return to [facility], but was reluctant to do so. For her painful peripheral neuropathy she established care with neurology. She also established care with pain management. She was then lost to followup here since February of 2013. DEXA scan 01/05/14 showed normal bone density. Her left breast discomfort had progressed to claudine severe burning pain. CT of the chest on 12/30/2013 showed stable implant with no evidence of cancer recurrence. She continued on Arimidex therapy. She underwent a left breast delay reconstruction. She reports taking high dose vitamin D, as she had recurrent deficiency. She was restarted on high-dose vitamin D. On 10/15/2017 she underwent right upper lobe lobectomy which showed 1.4 x 1 cm squamous cell carcinoma and microscopic satellite lesion 1 cm distant from main tumor. 3 hilar lymph nodes were removed showed no evidence of metastatic disease. She began treatment with Cisplatin/Gemzar on 11/27/2017. She had required growth factor support for neutropenia. And concluded her adjuvant chemotherapy with cisplatin and gemcitabine on 03/18/2018 Follow-up CT PET scan done on 05/11/2018 showed there is a new abnormal activity in the right paratracheal node, measuring 8mm with SUV of 5.9 Underwent bronchoscopy and mediastinoscopy on 06/12/2018 and the right upper lobe, mediastinal mass, bronchoscopy biopsy showed no malignant cell or significant atypia seen Lymph node, proximal right main bronchus, mediastinoscopy with biopsy showed benign lymph node with sinus histiocytosis. Follow-up CT PET scan done on 09/28/2018 showed the right paratracheal lymph node is progressed on the current now has SUV of 11.7 compared to 5.9 previously. No new lesions seen. Again , biopsy of this lymph node was done via mediastinoscopy on 06/12/2018 and it was normal Underwent mediastinoscopy and flex bronchoscopy on 12/11/[address] Claros, because of extensive scarring and adhesions, biopsy from abnormal lymph node could not obtained. He recommended transbronchial biopsy by EBUS.Subsequently patient decided not to do anything and even stop coming for follow-up and in April 2020 patient went to hospital with progressive shortness of breath and underwent CTA chest on April 25, 2020 which showed extensive nonspecific pneumonia in both lungs there is extensive endobronchial occlusion of right lung and negative for pulmonary embolism patient was referred to pulmonology saw Saw her on May 07, [address] PET scan on May 21, 2020 which showed abnormal activity associated with right paratracheal/hilar mass consistent with a primary lung. Obstruction of right mainstem bronchus. And no distant metastatic disease. Patient underwent bronchoscopy on June 03, 2020, right bronchus endobronchial lesion biopsy confirmed squamous cell carcinoma Came for follow-up, denies any specific complaint except generalized weakness and fatigue and anxiety, patient is on 3 to 4 L/min home oxygen, still smoke about a pack a day. Patient was recently diagnosed with squamous cell carcinoma involving right lung with endobronchial lesion and hilar lymphadenopathy, denies any hemoptysis or hematemesis but occasionally headache dizziness but no blurred vision or double vision. No dysphagia, no new bony pains. Patient had her Port-A-Cath removed earlier. . Medications: Albuterol Sulfate HFA 2 Puff(s) (of 108 (90 base) mcg/act) Aerosol, solution Inhalation four times a day PRN, Anoro Ellipta 1 Inhalation (of 62.5-25 mcg/inh) Aerosol Powder, Breath Activated Inhalation daily, Gabapentin 1 (300 mg) Capsule Oral t.i.d., Hydrocodone-Acetaminophen 1 (10-325 mg) Tablet Oral q 6 hours PRN, Loratadine 1 (10 mg) Tablet Oral daily, Mirtazapine 1 Tablet (of 15 mg) Oral daily, Prochlorperazine Maleate 1 Tablet (of 10 mg) Oral q 4 hours PRN, QUEtiapine Fumarate 1 Tablet (of 200 mg) Oral at bedtime Allergies: sulfa Review of Systems: Review of Systems is not available for this patient. Vital Signs: Performed on Jun 07, 2020 13:59 Height - 70.00 in Weight - 115 lbs (LOW) BSA - 1.65 sq.m BMI - 16.50 (LOW) Temperature - 98.8 F Pulse - 93 /min Respiration - 20 /min BP - 104/79 mm(hg) O2 Sat - 94 % (LOW) Pain - 7 Fatigue - 0 Performance Status: 2 - Ambulatory/capable of all self-care, unable to perform any work activities. Up and about more than 50% of waking hours. (ECOG) Physical Examination: Respiratory - Poor air entry otherwise clear, Cardiovascular - Regular rate and rhythm of heart, Gastrointestinal - Soft, bowel sounds present, Extremities - No visible edema or rash. Lab/Imaging: Most recent lab results are not available for this patient. Impression: Newly diagnosed squamous cell carcinoma of right lung per bronchoscopy assisted right endobronchial lesion biopsy done on June 03, 2020, T1 CT PET scan done on May 21, 2020 showed 3 x 3.8 cm right paratracheal/hilar mass with SUV of 20.8 and no evidence of distant mets, N2-, clinical stage IIIa h/o squamous cell carcinoma of right upper lobe of lung status post right upper lobectomy with hilar lymph node sampling on 10/15/2017, final pathology report showed moderately differentiated, focally keratinizing, 1.4 x 1 cm mass with microscopic satellite lesion 1 cm distant from main tumor mass and 0.2 cm from pleural surface in the same lobe. T3 Positive lymphovascular space invasion 3 hilar lymph nodes were removed showed no evidence of ascites disease N0 stage IIB . 2. Patient with grade 2 invasive ductal carcinoma of the left breast, stage IIIA (pT3, pN1a, M0), ER/CO positive and HER-2/sam negative. 3 She underwent left total mastectomy and axillary lymph node dissection with immediate reconstruction on 05/25/2010. 4 She was given adjuvant chemotherapy with 4 cycles of before meals followed by 4 cycles of docetaxel, given a 3 week intervals, completed in December 2010. 5 She completed adjuvant radiation in February 2011. 6. Adjuvant hormonal therapy with Arimidex began in June 2011.till nov 2016 6. She has a complex underlying psychiatric history. She has multiple complaints, most of which appear to be chronic. These include fatigue and excessive somnolence. She also has chronic pain. Thus far there has been no evidence of recurrence of the breast cancer .Right shoulder/axilla/right upper chest wall pain etiology unclear could be musculoskeletal as her axilla right shoulder done on 03/27/2017 showed normal studies chest x-ray shows flattening of hemidiaphragms otherwise unremarkable, rib films showed no acute changes. Bone scan done on 05/17/2017 showed punctate foci of activity within the left anterior ribs at approximately T6 and T7 and upper thoracic spine at T6 suspicious for metastatic disease. 2 punctate foci of uptake in the midshaft of left tibia is nonspecific and metastatic disease not entirely excluded. Focal uptake in the lateral malleolus consistent with prior ORIF in this area. MRI scan thoracic spine done on 06/04/2017 showed suspicious for metastatic lesion T5 spinous process and adjacent lamina. No other evidence of metastatic disease of thoracic spine , showed shallow posterior central disc protrusion or disc bulge at T5 and T6CT PET scan done on 06/16/2017 showed there is normal tracer uptake at T5 spinous process, no active osseous metastatic disease. There is a 6 mm noncalcified pulmonary nodule in the right upper lobe with SUV of 2.7. Repeat CT PET scan on 09/22/2017 showed the right upper lobe pulmonary nodule now measures 7 mm and with SUV 6.7 compared to 7 mm with SUV 2.7 in June 2017. Otherwise no other abnormality. Ms Leach began chemotherapy with Cisplatin and Gemzar on 11/27/2017.x 4 cycles And concluded her chemotherapy on 03/18/2018 CT PET scan done on 05/11/2018 showed there is a new abnormal activity in the right paratracheal node, measuring 8mm with an SUV of 5.9 For which she underwent bronchoscopy and mediastinoscopy on 06/12/2018 and final pathology report showed no evidence of malignancy CT PET scan done on 09/28/2018 showed right paratracheal lymph node has progressed on current study and it shows SUV of 11.7 compared to 5.9 previously Plan: Regarding her disease status, clinically patient has stage IIIa squamous cell carcinoma involving right lung, on 3 to 4 L/min of home oxygen for advanced stage COPD, still smoking actively Case was discussed with radiation oncology Dr. Rodriguez who has seen her earlier regarding treatment options including radiation alone versus combined chemoradiation with curative intent. As per Dr. Rodriguez radiation alone would not be effective to relieve endobronchial obstruction, in that case, we will consider weekly carboplatin/Taxol concurrent with radiation therapy and monitor her closely and adjust dose or schedule as tolerated if needed. All the side effect possible benefits associated with weekly chemotherapy with carboplatin/Taxol including but not limited to bone marrow suppression, peripheral neuropathy, allergic reaction especially with Taxol, hyperglycemia with steroids, were mentioned further teaching done by chemotherapy nurse, will obtain approval from her insurance prior to the treatment, will consider carboplatin AUC 2 and Taxol 50 mg/m??? concurrent with radiation therapy.And if tolerated well, will consider maintenance therapy with immunotherapy We will also refer her to Dr. Wilson for Port-A-Cath placement We will also consider MRI scan of the brain for staging work-up as well as patient is complaining of off-and-on headaches and lightheaded dizziness, to rule out brain mets. Patient was advised to quit smoking was offered any assistance she may need, she was also given prescription for Xanax 1 mg p.o. every 6 to 8 hours as needed for anxiety Patient return to clinic after MRI scan of the brain. Signed By: Mehul Olmos M.D. <<Signature on File>>
== END 2020-06-07 05:37 | disposition home or self-care (01) ==
LOC: ONCMED 05:40
PROVIDERS: PCP Nurse Practitioner Family; Visit Provider Internal Medicine Hematology & Oncology
DX: C34.11 Malignant neoplasm of upper lobe, right bronchus or lung (principal); Z85.3 Personal history of malignant neoplasm of breast; R51.9 Headache, unspecified; R42 Dizziness and giddiness; R53.83 Other fatigue; R40.0 Somnolence; F41.9 Anxiety disorder, unspecified; J44.9 Chronic obstructive pulmonary disease, unspecified; F17.200 Nicotine dependence, unspecified, uncomplicated; Z92.23 Personal history of estrogen therapy; Z99.81 Dependence on supplemental oxygen; Z79.899 Other long term (current) drug therapy
CPT/HCPCS: 99215

== ENCOUNTER → 2020-06-19 11:53 | Outpatient (BNVA) | payer MEDICARE, MEDICAID, SELFPAY | PROVIDERS: PCP Nurse Practitioner Family; Visit Provider Nurse Practitioner | DX: C34.90 Malignant neoplasm of unspecified part of unspecified bronchus or lung (principal); Z20.822 Contact with and (suspected) exposure to COVID-19 | CPT/HCPCS: 87635 ==

== ENCOUNTER 2020-06-24 11:45 | Inpatient (IN) | payer MEDICARE, MEDICAID, SELFPAY ==
[2020-06-24] VITALS (27 sets, daily range): BP systolic 67–122; BP diastolic 56–87; PULSE 57–119; RESP 12–36; TEMP 36.7; O2SAT 84–97; BMI 15.3
--- NOTE | 2020-06-24 11:56 | XR_ITS ---
WS: [id number] Portable AP upright chest, 06/24/2020 Clinical Data: dyspnea Comparison: Portable chest, 04/25/2020. Findings: No nodules, masses or effusions are seen. The heart is normal. The pulmonary vascularity is not increased. No pneumothorax is seen. The right basilar opacity has almost totally cleared. There is minimal opacity in the left upper lobe. There is minimal tenting of the right diaphragm. There is a dextroscoliosis. There are monitor leads on the chest wall. The patient has had a left mastectomy. XR/XR chest 1V portable [id number] Impression: 1. Clearing of right lower lobe opacity. 2. Partial clearing of left upper lobe opacity.
--- NOTE | 2020-06-24 11:57 | ECG_ITS ---
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
--- NOTE | 2020-06-24 12:00 | ED_ITS ---
HPI - SOB/Dyspnea General: Chief Complaint: Shortness of Breath/Dyspnea Stated Complaint: SOB Time Seen by Provider: 06/24/20 11:47 History of Present Illness: HPI Narrative: Patient is a 59-year-old female with past medical history COPD and lung cancer chronically on 2 L oxygen. She has had her middle and upper lobe on the right side resected for lung cancer. She also has a lymph node in her right lung which tested positive for cancer and was blocking her right lower lobe completely. She says she believes she was in [place] earlier this week and had a stent placed to open up the right lower lobe. Yesterday she became short of breath and took an unknown antibiotic prescribed by her physician. Today home health came to visit her and noted her sats were in the upper 80s on 2 L and that she was coughing and complaining of shortness of breath. They called an ambulance to send her to the ER. In the ED she complains of shortness of breath and has a productive sounding cough. She is on 4 L oxygen satting 92%. She denies having Covid or other vaccinations. She says her chest hurts when she coughs. MD elicited complaint: shortness of breath, cough and chest pain Pertinent past history: COPD Severity: moderate Relieving factors: nothing Known history of: COPD Associated symptoms: Deny chest pain, dizziness, extremity pain, fever(s), nausea, orthopnea, palpitations, polyuria or vomiting Treatment prior to arrival: oxygen Review of Systems General: Reports: 10 or more systems reviewed and unremarkable except in HPI and below Const: Denies: fever(s) Eyes: Denies: change in vision, blurry vision or eye redness ENMT: Denies: throat pain, swelling of lips/tongue, ear or mastoid pain or nasal congestion Card: Denies: chest pain, palpitations, irregular heart rhythm, edema, dyspnea on exertion or orthopnea Resp: Reports: dyspnea, productive cough, wheezing and pain on inspiration GI: Denies: nausea or vomiting : Denies: flank pain, difficulty voiding, urinary frequency or urinary urgency Musc: Denies: neck pain, back pain, extremity pain, joint pain, joint redness, limited range of motion or muscle weakness Skin/Breast: Denies: rash, pruritus, erythema, skin pain or skin tenderness Neuro: Denies: headache(s), numbness in extremities, weakness in extremities, sensory changes, difficulty walking, dizziness, confusion or Slurred speech present Psych: Denies: anxiety or depression Endo: Denies: polyuria All/Imm: Denies: urticaria, throat swelling or tongue swelling PFSH ED PFSH: Medical History Anxiety Cancer of left breast had surgery, other treatment not known currently DDD (degenerative disc disease), lumbar Lung cancer s/p lobectomy and chemotherapy, 2nd primary per patient Surgical History H/O colonoscopy 2014 H/O foot surgery left x 2 right x 1 H/O removal of cyst abdomen H/O: hysterectomy vaginal History of breast implant removal (12/20/16) Explantation of postmastectomy implant, partial capsulotomy mastectomy site History of lobectomy of lung right History of open reduction and internal fixation (ORIF) procedure (12/08/14) left ankle, Dr Walden History of open reduction and internal fixation (ORIF) procedure (04/16/20) right bimalleolar ankle fracture, Dr Torres History of removal of Port-a-Cath (04/2019) S/P left mastectomy Status post left breast reconstruction Family History Other Cancer Heart disease Hypertension Denies family history of Anesthesia complication Bleeding disorder Social History Smoking and tobacco status: current every day smoker cigarettes Years cigarettes smoked: 40 [ Other cigarette details: Hx of 1 PPD x 40 Years ] Quit status (tobacco): considering quitting Second hand smoke exposure: Yes Smoking risk assessment/counseling performed?: Yes Alcohol intake: never Counseling given: No Counseling given: No Lives independently: Yes Household members: none Marital status: Single Current occupational status: disabled History of recent travel: No Current gender identity: Female Physical Exam Const: COMMON NORMALS: no acute distress, average body habitus, patient oriented x3, no limitations, healthy appearing, alert and well nourished GENERAL APPEARANCE: cooperative, comfortable, well kempt and well developed ORIENTATION/CONSCIOUSNESS: Yes awake, Yes oriented to person, Yes oriented to place and Yes oriented to time HENMT: COMMON NORMALS: normocephalic, external ears normal and Normal external nose present HEAD & SCALP: normal to inspection and normocephalic NOSE: Normal external nose present EXTERNAL EAR: Yes external ears normal MOUTH: Normal oral and palatal mucosa present THROAT: posterior oropharynx normal Eye: COMMON NORMALS: Equal, round and reactive pupils present and EOMs intact bilaterally GENERAL EYE: appearance normal, both eyes and all related structures PUPIL: Yes Equal, round and reactive pupils present Neck/C-Spine: COMMON NORMALS: full ROM, no lymphadenopathy, no meningeal signs and no JVD GENERAL: Yes normal visual inspection Lymph: LYMPHATIC: no lymphadenopathy noted Chest: COMMONS NORMALS: normal inspection of the chest and normal palpation of entire chest wall Resp: COMMON NORMALS: normal respiratory effort EFFORT & INSPECTION: Yes able to speak in complete sentences, Yes tachypneic, Yes labored, Yes Actively coughing and Yes uses accessory muscles AUSCULTATION: rhonchi, wheezes expiratory wheezes, breath sounds absent (Right upper) and diminished lung sounds bilateral Cardio: COMMON NORMALS: no JVD, regular rate, regular rhythm, S1 normal heart sound present, S2 normal heart sound present and Peripheral pulses 2+ throughout RATE: regular rate RHYTHM: regular rhythm HEART SOUNDS: S1 normal heart sound present and S2 normal heart sound present PERIPHERAL PULSES: Peripheral pulses 2+ throughout GI: COMMON NORMALS: Normal to inspection, nondistended, normoactive bowel sounds present, Soft to palpation, non-tender and no masses INSPECTION: Yes normal to inspection PALPATION: Yes Soft to palpation : COMMON NORMALS: Yes no CVA tenderness BLADDER/KIDNEY EXAM: Yes no CVA tenderness Back/Pelvis: COMMON NORMALS: no CVA tenderness, thoracic and lumbar spine normal to inspection, no thoracic nor lumbar tenderness and thoraco-lumbar ROM normal Extremity: COMMON NORMALS: normal to inspection, full ROM, capillary refill normal, no joint enlargement and no pedal edema GENERAL: Yes normal exam exce pt as noted Neuro: COMMON NORMALS: patient oriented x3, CN's II-XII intact bilaterally, moves all extremities, no focal motor deficits, no sensory deficits noted and gait normal SENSORIUM/ORIENTATION: Yes alert, Yes oriented to person, Yes oriented to place and Yes oriented to time MENINGEAL SIGNS: Yes no meningeal signs Psych: COMMON NORMALS: mental status grossly normal, Normal thought process present, cooperative, normal affect and speech normal APPEARANCE: Yes well kempt ATTITUDE: Yes calm SPEECH: Yes normal speech THOUGHT PROCESS: Normal thought process present Skin: COMMON NORMALS: no rashes or lesions noted GENERAL SKIN EXAM: no rashes or lesions noted Course Vital Signs: Vital signs: Vital Signs Temperature 98.0 F 06/24/20 11:48 Pulse Rate 86 06/24/20 18:00 Respiratory Rate 19 H 06/24/20 18:00 Blood Pressure 112/78 06/24/20 18:00 Pulse Oximetry 97 06/24/20 18:00 MDM - SOB/Dyspnea MDM Narrative: Medical decision making narrative: The patient comes to the ER in respiratory distress requiring more than her usual 2 L. She was satting in the 70s at home and was placed on 4 to 6 L with improvement to the low 90s. She has a history of right-sided lobectomy the middle in the upper lobe for cancer sometime ago and within the last week she has had a right lower lobe stent placed as it had been closed off by a swollen lymph node that is also cancerous. She says yesterday she began to feel short of breath and today it worsened. She came in nauseous and vomiting and was given Zofran and Reglan with improvement of her nausea. She was placed on BiPAP because her saturations started dropping to the low 80s on 6 L of oxygen. Discussed with Dr. Lockhart who accepts for admission to the ICU Lab Data: Labs: Lab Results 06/24/20 06/24/20 06/24/20 Range/Units 12:08 12:08 12:08 WBC 10.3 H (4.0-10.0) 10^3/ uL RBC 4.12 (4.1-5.3) 10^6/u L Hgb 12.4 (11.5-15.3) g/dL Hct 38.7 (37.0-47.0) % MCV 93.9 (81-99) fL MCH 30.1 (28.0-34.0) pg MCHC 32.0 (30.0-36.0) g/dL RDW 15.7 H (12.1-15.1) % Plt Count 318 (130-400) 10^3/c mm MPV 10.7 H (7.4-10.4) fL Neut % (Auto) 76.6 % Lymph % (Auto) 12.6 % [place] % (Auto) 8.0 % Eos % (Auto) 1.7 % Baso % (Auto) 0.7 % Neut # (Auto) 7.90 H (1.8-7.7) 10^3/u L Lymph # (Auto) 1.3 (0.8-4.8) 10^3/u L [place] # (Auto) 0.8 (0.2-0.9) 10^3/u L Eos # (Auto) 0.2 (0.0-0.8) 10^3/u L Baso # (Auto) 0.1 (0.0-0.1) 10^3/u L Nucleated RBC % (a uto) 0 % Nucleated RBCs # 0.0 /100WBC Sodium Cancelled Potassium Cancelled Chloride Cancelled Carbon Dioxide Cancelled Anion Gap Cancelled BUN Cancelled Creatinine Cancelled GFR Calculation Cancelled Glucose Cancelled Calculated Osmolal ity Cancelled Lactic Acid Cancelled Calcium Cancelled Total Bilirubin Cancelled AST Cancelled ALT Cancelled Alkaline Phosphata se Cancelled Troponin T Baselin e Troponin T 120 Min [place] (0-10) ng/L Delta Troponin T (0-10) ABS# NT-Pro-B Natriuret Pep Cancelled Total Protein Cancelled Albumin Cancelled Globulin Cancelled 06/24/20 06/24/20 06/24/20 Range/Units 12:08 13:37 13:37 WBC (4.0-10.0) 10^3/ uL RBC (4.1-5.3) 10^6/u L Hgb (11.5-15.3) g/dL Hct (37.0-47.0) % MCV (81-99) fL MCH (28.0-34.0) pg MCHC (30.0-36.0) g/dL RDW (12.1-15.1) % Plt Count (130-400) 10^3/c mm MPV (7.4-10.4) fL Neut % (Auto) % Lymph % (Auto) % [place] % (Auto) % Eos % (Auto) % Baso % (Auto) % Neut # (Auto) (1.8-7.7) 10^3/u L Lymph # (Auto) (0.8-4.8) 10^3/u L [place] # (Auto) (0.2-0.9) 10^3/u L Eos # (Auto) (0.0-0.8) 10^3/u L Baso # (Auto) (0.0-0.1) 10^3/u L Nucleated RBC % (a uto) % Nucleated RBCs # /100WBC Sodium Potassium Chloride Carbon Dioxide Anion Gap BUN Creatinine GFR Calculation Glucose Calculated Osmolal ity Lactic Acid 1.6 Calcium Total Bilirubin AST ALT Alkaline Phosphata se Troponin T Baselin e Cancelled 12 H Troponin T 120 Min [place] (0-10) ng/L Delta Troponin T (0-10) ABS# NT-Pro-B Natriuret Pep Total Protein Albumin Globulin 06/24/20 06/24/20 Range/Units 13:37 15:56 WBC (4.0-10.0) 10^3/ uL RBC (4.1-5.3) 10^6/u L Hgb (11.5-15.3) g/dL Hct (37.0-47.0) % MCV (81-99) fL MCH (28.0-34.0) pg MCHC (30.0-36.0) g/dL RDW (12.1-15.1) % Plt Count (130-400) 10^3/c mm MPV (7.4-10.4) fL Neut % (Auto) % Lymph % (Auto) % [place] % (Auto) % Eos % (Auto) % Baso % (Auto) % Neut # (Auto) (1.8-7.7) 10^3/u L Lymph # (Auto) (0.8-4.8) 10^3/u L [place] # (Auto) (0.2-0.9) 10^3/u L Eos # (Auto) (0.0-0.8) 10^3/u L Baso # (Auto) (0.0-0.1) 10^3/u L Nucleated RBC % (a uto) % Nucleated RBCs # /100WBC Sodium 142 Potassium 3.6 Chloride 102 Carbon Dioxide 30 H Anion Gap 13.6 BUN 9 Creatinine 0.6 GFR Calculation 102.0 Glucose 124 H Calculated Osmolal ity 294 Lactic Acid Calcium 8.9 Total Bilirubin 0.4 AST 9 ALT < 5 Alkaline Phosphata se 102 Troponin T Baselin e Troponin T 120 Min [place] 11.40 H (0-10) ng/L Delta Troponin T -0.60 L (0-10) ABS# NT-Pro-B Natriuret Pep 491 H Total Protein 6.3 L Albumin 3.8 Globulin 2.5 Discharge Plan Discharge Patient Disposition: Admitted As Inpatient Admit Provider: Deion Lockhart Clinical Impression: Hypoxemia, Acute exacerbation of chronic obstructive airways disease, Acute on chronic respiratory failure Condition: Stable Coding Level of Care Code ED Mail Forwarding System Markup Clerk for Chg Fwd Exam Comprehensive
--- NOTE | 2020-06-24 12:05 | CT_ITS ---
WS: [id number] CT CHEST ANGIOGRAPHY WITH REFORMATS HISTORY: dyspnea, right lower lobe stent placed. Lung Ca history, TECHNIQUE: Contiguous axial images are obtained through the chest during arterial injection of intrav enous contrast. Images are reconstructed to evaluate the pulmonary arteries. MIP imaging also reviewe d. All CT scans at [facility] use at least one of these dose optimization techniques: aut omated exposure control; mA and/or kV adjustment per patient size (includes targeted exams where dose is matched to clinical indication); or iterative reconstruction. CONTRAST: Omnipaque 350; 95 mL IV. DLP: 815.85 mGy.cm COMPARISON: 04/25/2020 Good opacification of the pulmonary arteries. No pulmonary embolism. Mild atherosclerosis aorta. The prior examination a RIGHT mainstem bronchus stent has been placed. Stent begins in the distal trachea and extends through the RIGHT mainstem bronchus. The lumen of the stent is patent although there is mild stenosis at the distal extent due to increasing soft tissue. There is increased soft tissue surr ounding the RIGHT proximal bronchus with the diameter measuring up to 6 mm. Increased soft tissue ext ends into the subcarinal soft tissues. The esophagus is normally distended. Chronic emphysema. The extensive airspace disease noted on the prior study has nearly completely reso lved. There is only very minimal interstitial thickening now present. Prior LEFT mastectomy. Heart si ze is normal with a small amount of pericardial fluid versus pericardial thickening. Upper abdominal structures are limited due to breathing motion artifact. No osteoblastic or osteolyti c bone disease. CT/CT angio chest PE protcl [id number] IMPRESSION: 1. No pulmonary embolism. 2. Placement of a RIGHT mainstem bronchial stent since 04/25/2020. Slight impro vement in the adenopathy and soft tissue at the RIGHT hilum since the prior markus dy. There is very mild narrowing of the distal RIGHT main bronchus just beyond the stent. No lobar collapse. 3. Persistent RIGHT hilar and subcarinal lymphadenopathy but improved since . 4. Essentially near complete resolution of the previously described pneumonia seen on 04/25/2020.
[2020-06-24] MEDS: ipratropium-albuterol 3 mL Neb INHALATION (12:12)
[2020-06-24 12:21] LABS: Basophils # 0.1 10^3/uL (0.0-0.1); Basophils % 0.7 %; Eosinophils # 0.2 10^3/uL (0.0-0.8); Eosinophils % 1.7 %; Hematocrit 38.7 % (37.0-47.0); Hemoglobin 12.4 g/dL (11.5-15.3); Lymphocytes # 1.3 10^3/uL (0.8-4.8); Lymphocytes % 12.6 %; Mean Corpuscular Hemoglobin 30.1 pg (28.0-34.0); Mean Corpuscular Volume 93.9 fL (81-99); Mean Platelet Volume 10.7 fL (7.4-10.4); Monocytes # 0.8 10^3/uL (0.2-0.9); Neutrophils % 76.6 %; Nucleated Red Blood Cells % 0 %; Platelet Count 318 10^3/cmm (130-400); Red Blood Count 4.12 10^6/uL (4.1-5.3); Red Cell Distribution Width 15.7 % (12.1-15.1); White Blood Count 10.3 10^3/uL (4.0-10.0)
[2020-06-24] MEDS: albuterol 8 gm MDI 2 PUFF INHALATION (12:28)
[2020-06-24] MEDS: ondansetron 2 mg/ML SDV 2 mL 4 MG IVP (13:05)
[2020-06-24] MEDS: metoclopramide 5 mg/mL SDV 2 mL 10 MG IVP (13:39)
[2020-06-24] MEDS: LORazepam 2 mg/mL INJ 1 mL 0.5 MG IVP (13:56)
--- NOTE | 2020-06-24 13:57 | ECG_ITS ---
[facility] Test Date: 2020-06-24 Pat Name: Natalee Leach Department: Room: Gender: Female Ceramist: : 1960 Requested By: Chinedu Etienne Order Number: [id number] Reading MD: VERONICA MATA Measurements Intervals [place] Rate: 113 P: 98 NV: 147 QRS: 121 QRSD: 82 T: 95 QT: 319 QTc: 438 Interpretive Statements SINUS TACHYCARDIA ARM LEADS REVERSED [INVERTED P AND QRS IN I] ABNORMAL RHYTHM ECG Compared to ECG 06/24/2020 12:12:44 Sinus rhythm no longer present Myocardial infarct finding no longer present Electronically Signed On 06-24-2020 20:43:49 CDT by VERONICA MATA [id number]
[2020-06-24 14:00] LABS: Lactic Sepsis W/Reflex 1.6 mmol/L (0.5-2.2)
[2020-06-24 14:02] LABS: Troponin(5th) Baseline 12 ng/L (0-10)
[2020-06-24 14:10] LABS: Alanine Aminotransferase < 5 U/L (0-33); Albumin Level 3.8 g/dL (3.5-5.2); Alkaline Phosphatase 102 IU/L (35-105); Anion Gap 13.6 (5-19); Aspartate Amino Transferase 9 U/L (0-32); Blood Urea Nitrogen 9 mg/dL (8-23); Calcium 8.9 mg/dL (8.5-10.5); Carbon Dioxide 30 mmol/L (22-29); Chloride 102 mmol/L (98-107); Creatinine Clr Calc Pharmacy 78.5384; Globulin 2.5 g/dL (1.3-4.6); Glucose 124 mg/dL (65-115); NT Pro B Type Natriuretic Pept 491 pg/mL (0-125); Osmolality Calculated 294 mOsm/kg (285-295); Potassium 3.6 mmol/L (3.5-5.1); Sodium 142 mmol/L (136-145); Total Bilirubin 0.4 mg/dL (0.15-1.2); Total Protein 6.3 g/dL (6.6-8.7)
[2020-06-24] MEDS: iohexol 350 mg/mL 100 mL Btl IV ×2 (14:56→15:03)
[2020-06-24] MEDS: levalbuterol 1.25 mg/3 mL Neb INHALATION (17:11)
--- NOTE | 2020-06-24 17:35 | P.CONIM_ITS ---
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 The last office visit was on June 17. 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 In 2019, the patient was found to have enlarging right paratracheal lesion and was sent to me for bronchoscopic evaluation. However, the patient refused any procedure at that time and did not follow-up with me. Patient also has history of breast cancer diagnosed in 2010. The patient presented to me in earlier [address] scan found possible malignancy. She underwent bronchoscopic evaluation and was found to have near complete occlusion of right mainstem bronchus. The initial bronchoscopy was performed on June 03. When I saw the patient on June 17 after discussion the patient had decided to undergo debulking of the tumor. I had referred her to [facility]. According to the patient, she went to [facility] on June 21 and had undergone procedure the following day and left the hospital on Sunday night. The patient presented to the hospital today with worsening shortness of breath and wheezing. In the emergency department she was hypoxic and required BiPAP. When I had evaluated her today the patient looked comfortable however her oxygen saturation was in the 80s. The patient is currently on 5 L oxygen. At baseline, she uses 3 L of oxygen at home. She denies any worsening cough, sputum production, fever. She did report several episodes of vomiting. No significant chest pain or hemoptysis. I have reviewed the patient's CT angiogram that was obtained today. There is no evidence of pulmonary embolism. The patient has significant emphysematous changes. To my evaluation it appears that the proximal end of the stent is likely displaced and partially occluding the airflow to the left lung as it is located in the lower part of the trachea. Review of Systems Narrative: General: No fevers chills night sweats or fatigue Skin: No rash HEENT: No nasal congestion, rhinitis, sinusitis, sneezing, hoarseness of voice Neck: There is no neck swelling, mass or swollen glands. Respiratory: As mentioned in the HPI. Cardiovascular: No chest pain, orthopnea, paroxysmal nocturnal dyspnea, palpitation or lower extremity edema. Gastrointestinal: The patient reports nausea and vomiting Musculoskeletal: No joint pain or swelling Neurological: Patient is awake alert and oriented x3, no paralysis, gross motor function is normal. Psychiatric: She has a history of anxiety Meds/Allergies Home Medications and Allergies Home Medications Medication Instructions Recorded Confirmed Last Taken Type loratadine 10 mg tablet 10 mg PO DAILY 04/02/19 06/24/20 06/02/20 History quetiapine 200 mg PO BEDTIME 04/15/19 06/24/20 06/02/20 History supinator #1 each 09/29/19 06/24/20 Unknown Rx Katarzyna AFO ankle brace #1 ea 10/08/19 06/24/20 Unknown Rx Cam boot #1 ea 03/31/20 06/24/20 Unknown Rx hydrocodone-acetaminophen 1 tab PO Q6H PRN 04/26/20 06/24/20 06/02/20 History albuterol sulfate 90 mcg/actuation 2 puff INHALATION QID PRN 30 Days 05/07/20 06/24/20 06/02/20 Rx aerosol inhaler #8.5 g mirtazapine 15 mg tablet 15 mg PO DAILY #30 tab 05/07/20 06/24/20 06/03/20 05:45 Rx umeclidinium 62.5 mcg-vilanterol 1 inh INHALATION DAILY 30 Days #60 05/07/20 06/24/20 06/02/20 Rx 25 mcg/actuation powdr for ea inhalation ASO #1 ea 06/02/20 06/24/20 Unknown Rx alprazolam 1 mg PO TID PRN 06/24/20 06/24/20 Unknown History amoxicillin 875 mg-potassium 1 tab PO BID 10 Days #20 tab 06/24/20 06/24/20 Unknown Rx clavulanate 125 mg tablet gabapentin 800 mg PO BID 06/24/20 06/24/20 Unknown History prednisone 20 mg tablet 40 mg PO DAILY 5 Days #10 tab 06/24/20 06/24/20 Unknown Rx sertraline 100 mg PO BEDTIME 06/24/20 06/24/20 Unknown History Allergies Allergy/AdvReac Type Severity Reaction Status Date / Time Sulfa (Sulfonamide Allergy vomiting Verified 06/24/20 11:58 Antibiotics) PFSH Acute PFSH: Medical History Anxiety Cancer of left breast had surgery, other treatment not known currently DDD (degenerative disc disease), lumbar Lung cancer s/p lobectomy and chemotherapy, 2nd primary per patient Surgical History H/O colonoscopy 2014 H/O foot surgery left x 2 right x 1 H/O removal of cyst abdomen H/O: hysterectomy vaginal History of breast implant removal (12/20/16) Explantation of postmastectomy implant, partial capsulotomy mastectomy site History of lobectomy of lung right History of open reduction and internal fixation (ORIF) procedure (12/08/14) left ankle, Dr Walden History of open reduction and internal fixation (ORIF) procedure (04/16/20) right bimalleolar ankle fracture, Dr Torres History of removal of Port-a-Cath (04/2019) S/P left mastectomy Status post left breast reconstruction Family History Other Cancer Heart disease Hypertension Denies family history of Anesthesia complication Bleeding disorder Social History Smoking and tobacco status: current every day smoker cigarettes Years cigarettes smoked: 40 [ Other cigarette details: Hx of 1 PPD x 40 Years ] Quit status (tobacco): considering quitting Second hand smoke exposure: Yes Smoking risk assessment/counseling performed?: Yes Alcohol intake: never Counseling given: No Counseling given: No Lives independently: Yes Household members: none Marital status: Single Current occupational status: disabled History of recent travel: No Current gender identity: Female Vitals/I&O/Wt Last Vital Signs Temp 98.0 F 06/24/20 11:48 Pulse 93 06/24/20 17:27 Resp 18 06/24/20 17:17 BP 122/77 06/24/20 15:46 Pulse Ox 90 06/24/20 17:27 Weight last 48 hrs Weight 110 lb Physical Exam Narrative: EXAM NARRATIVE: General: Patient is awake alert and oriented, in mild distress when resting Neck: No JVD, no cervical or supraclavicular lymphadenopathy. Respiratory: Inspection: No visible deformity of the chest wall, no scar, no mass lesion, no visible heaving of the apical impulse Auscultation: The patient has bilateral monophonic wheezing more prominent on the right than the left side, no crackles Cardiovascular: Regular rate and rhythm, S1-S2 present, no murmur, no peripheral edema. Abdomen: Soft, nontender, nondistended, positive bowel sound Musculoskeletal: No obvious joint deformity Skin: No rash Neuro: Mental status is normal, no gross cranial nerve deficit, normal motor and coordination. Data Other Data: Attestation for Other Data: I personally reviewed and interpreted the following: Other data: I have reviewed the patient's laboratory and radiology data. Please see the HPI for detail. A&P Assessment and plan (1) At high risk for airway occlusion: The patient had a stent placement 2 days ago in the right mainstem for squamous cell lung cancer causing near complete occlusion of right mainstem bronchus. The patient underwent debulking of the tumor and stent placement. The patient presented to the hospital today with worsening respiratory failure and wheezing. On physical examination, the wheezing appears to be monophonic which is unusual with COPD exacerbation. On closer evaluation of the CT scan of the chest it appears that the proximal end of the stent is encroaching in the lower trachea and possibly partially occluding the airflow to the left mainstem bronchus. This is also likely causing the monophonic wheezing. I have called the interventional pulmonology physician on-call at [facility] and waiting to talk to him. Dr. Cast had performed the procedure there. I will discuss the CT scan findings with the physician and the patient may require transfer to that facility for stent removal and replacement. In the meantime, the patient is getting treated with antibiotic and steroid. Status: Acute (2) Acute and chronic respiratory failure with hypoxia: The patient has advanced emphysema and chronic hypoxic respiratory failure. At baseline the patient is on 3 L of oxygen. The patient is presenting to the hospital with worsening hypoxia and monophonic wheezing. She earlier required BiPAP. Currently she is saturating about 82 to 84% on 5 L oxygen. Status: Acute (3) COPD (chronic obstructive pulmonary disease): The patient likely has advanced COPD. I do not have any previous pulmonary function test available. Currently the patient is on a LABA LAMA inhaler as outpatient. Status: Acute (4) Acute exacerbation of chronic obstructive airways disease: She is getting treated for suspected acute exacerbation however the possibility of airway stent migration causing airflow obstruction is likely. Status: Acute (5) Lung cancer: The patient is in the process of starting her therapy with chemoradiation. Status: Chronic Qualifiers: Laterality: right Lung location: upper lobe of lung Qualified Code(s): C34.11 - Malignant neoplasm of upper lobe, right bronchus or lung Coding Level of Care Code Acute Seafood Harvester for [facility] Fwd Diagnoses At high risk for airway occlusion Z91.89 Acute and chronic respiratory failure with hypoxia J96.21 COPD (chronic obstructive pulmonary disease) J44.9 Acute exacerbation of chronic obstructive airways disease J44.1 Lung cancer C34.11 Laterality: right Lung location: upper lobe of lung
--- NOTE | 2020-06-24 17:57 | ECG_ITS ---
[facility] Test Date: 2020-06-24 Pat Name: Natalee Leach Department: Room: Gender: Female Petal Cutter: : 1960 Requested By: Chinedu Etienne Order Number: [id number] Jennifer MD: VERONICA MATA Measurements Intervals [place] Rate: 90 P: 83 KS: 116 QRS: 72 QRSD: 74 T: 80 QT: 355 QTc: 436 Interpretive Statements SINUS RHYTHM WITH SHORT KS INTERVAL SEPTAL MYOCARDIAL INFARCTION , OF INDETERMINATE AGE [40+ ms Q WAVE IN V1/V2] Compared to ECG 06/24/2020 13:58:01 Short KS interval now present Myocardial infarct finding now present Sinus tachycardia no longer present Electronically Signed On 06-24-2020 20:43:19 CDT by VERONICA MATA [id number]
--- NOTE | 2020-06-24 20:08 | P.HP_ITS ---
Providers/Chief Complaint Admitting Physician: Deion Lockhart Primary Care Provider: Flor Kumar Chief Complaint: SOB History of Present Illness Pleasant 59-year-old lady with history of squamous cell carcinoma of the right lung, with near complete occlusion of right mainstem bronchus, with resultant postobstructive pneumonia, following with pulmonology was referred for additional assessment treatment at [facility] where she underwent debulking procedure and stent deployment to the right mainstem bronchus. Reports the hospitalization was uneventful. However, presented to ER today due to fairly sudden onset shortness of breath starting on Sunday after she was discharged from the hospital on Sunday. This is accompanied by bouts of cough, severe wheezing, scant phlegm production. Has had nausea and vomiting which began today. She denies fever or chills, muscle aches, no headache. Denies diarrhea. She states has been tested for COVID-19 overall 5 times, most recently here I see recorded negative PCR on 06/19. In ER she was given a br eathing treatment with DuoNeb, although did not tolerate this well, stating that it had made her nausea worse. Given a dose of Solu-Medrol 125 mg. Started on Levaquin. Suspected to have COPD exacerbation. She is afebrile, without leukocytosis. Respiratory rate on presentation 32. Saturations initially noted in low 80s. She normally uses 3 L of oxygen at home. Here initially to be increased to 5 L, and subsequently had to be placed on BiPAP due to persistent desaturation. She has had no chest pain. Troponin baseline is 12, 2-hour 11.4. BNP 491. EKGs with sinus rhythm. Chest x-ray shows clearing of right lower lobe opacity. Partial clearing of left upper lobe opacity. CT angiogram of the chest shows no PE. Shows placement of right mainstem bronchial stent. Slight improvement in adenopathy and soft tissue at right hilum since prior study. Very mild narrowing of the distal right main bronchus just beyond the stent. No lobar collapse. Persistent right hilar subcarinal lymphadenopathy but improved. Essentially new complete resolution of previously described pneumonia. On review of imaging with pulmonology there is concern for possibility of dislodgment of the stent. Interventional pulmonology at [facility] has been contacted. Review of Systems Const: Denies: fever(s), chills, body aches or malaise Eyes: Denies: change in vision or eye redness ENMT: Denies: throat pain, oral sores or ear or mastoid pain Card: Reports: dyspnea on exertion; Denies: chest pain, edema or pre-syncope Resp: Reports: dyspnea and productive cough; Denies: change in phlegm color or hemoptysis GI: Reports: nausea and vomiting; Denies: abdominal pain, diarrhea, constipation, hematochezia or melena : Denies: flank pain, urinary frequency or hematuria Musc: Reports: joint pain (Right ankle after a fall yesterday); Denies: back pain, joint swelling or joint redness Skin/Breast: Denies: rash, sores or new lesions Neuro: Denies: headache(s), numbness in extremities, weakness in extremities, dizziness, confusion or seizure-like activity Endo: Denies: polyuria or polydipsia Glenn/Lymph: Denies: easy bleeding or purpura All/Imm: Denies: urticaria, throat swelling or tongue swelling Medications/Allergies Home Medications Medication Instructions Recorded Confirmed Last Taken Type loratadine 10 mg tablet 10 mg PO DAILY 04/02/19 06/24/20 06/02/20 History quetiapine 200 mg PO BEDTIME 04/15/19 06/24/20 06/02/20 History supinator #1 each 09/29/19 06/24/20 Unknown Rx Katarzyna AFO ankle brace #1 ea 10/08/19 06/24/20 Unknown Rx Cam boot #1 ea 03/31/20 06/24/20 Unknown Rx hydrocodone-acetaminophen 1 tab PO Q6H PRN 04/26/20 06/24/20 06/02/20 History albuterol sulfate 90 mcg/actuation 2 puff INHALATION QID PRN 30 Days 05/07/20 06/24/20 06/02/20 Rx aerosol inhaler #8.5 g mirtazapine 15 mg tablet 15 mg PO DAILY #30 tab 05/07/20 06/24/20 06/03/20 05:45 Rx umeclidinium 62.5 mcg-vilanterol 1 inh INHALATION DAILY 30 Days #60 05/07/20 06/24/20 06/02/20 Rx 25 mcg/actuation powdr for ea inhalation ASO #1 ea 06/02/20 06/24/20 Unknown Rx alprazolam 1 mg PO TID PRN 06/24/20 06/24/20 Unknown History amoxicillin 875 mg-potassium 1 tab PO BID 10 Days #20 tab 06/24/20 06/24/20 Unknown Rx clavulanate 125 mg tablet gabapentin 800 mg PO BID 06/24/20 06/24/20 Unknown History prednisone 20 mg tablet 40 mg PO DAILY 5 Days #10 tab 06/24/20 06/24/20 Unknown Rx sertraline 100 mg PO BEDTIME 06/24/20 06/24/20 Unknown History Allergies Allergy/AdvReac Type Severity Reaction Status Date / Time Sulfa (Sulfonamide Allergy vomiting Verified 06/24/20 11:58 Antibiotics) PFSH Acute PFSH: Medical History Anxiety Cancer of left breast had surgery, other treatment not known currently DDD (degenerative disc disease), lumbar Lung cancer Surgical History H/O colonoscopy 2014 H/O foot surgery left x 2 right x 1 H/O removal of cyst abdomen H/O: hysterectomy vaginal History of breast implant removal (12/20/16) Explantation of postmastectomy implant, partial capsulotomy mastectomy site History of lobectomy of lung right History of open reduction and internal fixation (ORIF) procedure (12/08/14) left ankle, Dr Walden History of open reduction and internal fixation (ORIF) procedure (04/16/20) right bimalleolar ankle fracture, Dr Torres History of removal of Port-a-Cath (04/2019) S/P left mastectomy Status post left breast reconstruction Family History Other Cancer Heart disease Hypertension Denies family history of Anesthesia complication Bleeding disorder Social History Smoking and tobacco status: current every day smoker cigarettes Years cigarettes smoked: 40 [ Other cigarette details: Hx of 1 PPD x 40 Years ] Quit status (tobacco): considering quitting Second hand smoke exposure: Yes Smoking risk assessment/counseling performed?: Yes Alcohol intake: never Counseling given: No Counseling given: No Lives independently: Yes Household members: none Marital status: Single Current occupational status: disabled History of recent travel: No Current gender identity: Female Vitals/I&O/Wt Last Vital Signs Temp 98.0 F 06/24/20 11:48 Pulse 86 06/24/20 18:00 Resp 20 H 06/24/20 19:32 BP 115/78 06/24/20 19:32 Pulse Ox 93 06/24/20 19:32 Weight last 48 hrs Weight 49.895 kg Physical Exam Const: COMMON NORMALS: no acute distress and patient oriented x3 GENERAL APPEARANCE: anxious HENMT: COMMON NORMALS: oropharynx normal Neck/C-Spine: COMMON NORMALS: no JVD Resp: COMMON NORMALS: normal respiratory effort AUSCULTATION: wheezes and diminished lung sounds Cardio: COMMON NORMALS: no JVD, regular rhythm, S1 normal heart sound present, S2 normal heart sound present and No murmurs present (Cardio) RHYTHM: regular rhythm HEART SOUNDS: S1 normal heart sound present and S2 normal heart sound present GI: COMMON NORMALS: Normal to inspection, nondistended, normoactive bowel sounds present, Soft to palpation and non-tender PALPATION: Yes Soft to palpation Extremity: COMMON NORMALS: no joint enlargement and no pedal edema OTHER: R ankle without edema or redness Neuro: COMMON NORMALS: patient oriented x3 and moves all extremities Skin: COMMON NORMALS: no rashes or lesions noted GENERAL SKIN EXAM: no rashes or lesions noted Data : 06/24/20 12:08 06/24/20 13:37 A&P Assessment and plan (1) Acute and chronic respiratory failure with hypoxia: She is admitted to ICU. She declines continue BiPAP for now. Prefers nasal cannula oxygen alone. States that in case of cardiopulmonary arrest does not want CPR. Does not want intubation. Is agreeable to continue treatment for COPD exacerbation. Did not tolerate DuoNeb well. Will treat with Xopenex for now. Ipratropium. Continue steroid, antibiotic. Collect sputum culture. She is agreeable to resume BiPAP in case her saturation further declines. For now feeling comfortable around 84-85% saturation. We are also investigating regarding possibility of dislodgment of the stent in the right mainstem bronchus placed on Sunday. On several images on CT scan there is appearance that it may have dislodged into the trachea, although visualization is difficult. Discussed with pulmonology. 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 Would benefit from additional evaluation by bronchoscopy. Stent may need to be removed. As per discussion it is not likely that placement of additional stent would be successful or beneficial, and so this would not be pursued per p ulmonology at [facility]. Continue arrangements for radiation therapy. Status: Acute (2) At high risk for airway occlusion: As above. Status: Acute (3) Acute exacerbation of chronic obstructive airways disease: Continuously Medrol. Levaquin. Xopenex. Ipratropium nebs. Oxygen support. BiPAP support as needed and as tolerating/allows. Collect sputum culture. Not likely COVID-19 given lack of other symptoms, recently negative test on 06/19. Status: Acute Additional A&P Information Squamous cell carcinoma of the lung: Continue pursuit of chemoradiation. States she was supposed to have her port placed today. To spare additional sedation and separate procedure, perhaps can try to coordinate port placement tomorrow as well. Recently postobstructive pneumonia: This appears to have mostly resolved Right ankle pain after fall: Assess ankle x-ray. Follow-up with podiatry. Has an appointment on . Attestations Medical Necessity Statement*: Admission of over 2 midnights is going to needed for assessment management of acute hypoxic respiratory failure, COPD exacerbation, assessment of possible right mainstem bronchus stent dislodgment, possible port placement. 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
--- NOTE | 2020-06-24 20:09 | XR_ITS ---
WS: [id number] Right ankle, 3 views, 06/24/2020 Clinical Data: pain after fall Comparison: Right ankle, 06/02/2020. Findings: No new fractures or dislocations are seen. The ankle mortise is normal. The talus and calcaneus are u nremarkable. No soft tissue swelling over the medial or lateral malleolus is seen. The internal fixation of the bimalleolar fracture shows that the orthopedic hardware is intact. There is a small orthopedic pin in the right first metatarsal. XR/XR ankle RT min 3V* [id number] Impression: 1. No change in internal fixation of bimalleolar fracture. 2. Negative for new fracture.
[2020-06-24 20:11] LABS: Troponin 5 6HR 9.91 ng/L (0-10)
[2020-06-24 20:13] LABS: Troponin 5 6HR Delta -2.09 ng/L (0-12)
[2020-06-24] MEDS: famotidine 20 mg/2 mL INJ IVP (20:28)
[2020-06-24] MEDS: heparin 5,000 unit/mL INJ 1 mL 5000 UNIT SUBCUT (20:28)
[2020-06-24] MEDS: quetiapine 100 mg Tablet 200 MG PO (20:29)
[2020-06-24] MEDS: ipratropium 0.5 mg/2.5 mL Neb INHALATION ×2 (20:38→23:19)
[2020-06-24] MEDS: levalbuterol 0.63 mg/3 mL Neb INHALATION ×2 (20:39→23:19)
[2020-06-24] MEDS: levofloxacin-dextrose 5 % 750 MG/150 ML PREMIX 100 MG IV (21:33)
[2020-06-25] VITALS (44 sets, daily range): BP systolic 82–109; BP diastolic 53–84; PULSE 85–119; RESP 14–34; TEMP 36.8–36.9; O2SAT 89–100
--- NOTE | 2020-06-25 | SCC_ITS ---
Procedure Done: Placement of PowerPort in the right internal jugular vein Fluoroscopic guidance and interpretation for placement of catheter Ultrasound guidance to access the right internal jugular vein 22.2 seconds of fluoroscopic guidance, for a cumulative dose of 2.12 mGy, was provided to Dr. Wilson by the radiology department. C-arm images of the chest were saved for the patient's permanent record. [facility]
[2020-06-25] MEDS: levalbuterol 0.63 mg/3 mL Neb INHALATION ×6 (03:32→23:20)
[2020-06-25] MEDS: ipratropium 0.5 mg/2.5 mL Neb INHALATION ×6 (03:32→23:20)
[2020-06-25 04:09] LABS: Basophils % 0.1 %; Hematocrit 36.2 % (37.0-47.0); Hemoglobin 11.6 g/dL (11.5-15.3); Lymphocytes # 0.6 10^3/uL (0.8-4.8); Lymphocytes % 7.9 %; Mean Corpuscular Hemoglobin 29.8 pg (28.0-34.0); Mean Corpuscular Volume 93.1 fL (81-99); Monocytes # 0.1 10^3/uL (0.2-0.9); Monocytes % 1.1 %; Neutrophils # 6.73 10^3/uL (1.8-7.7); Neutrophils % 90.5 %; Nucleated Red Blood Cells % 0 %; Platelet Count 304 10^3/cmm (130-400); Red Blood Count 3.89 10^6/uL (4.1-5.3); Red Cell Distribution Width 14.8 % (12.1-15.1); White Blood Count 7.4 10^3/uL (4.0-10.0)
[2020-06-25 04:16] LABS: Anion Gap 12.8 (5-19); Blood Urea Nitrogen 13 mg/dL (8-23); Calcium 8.7 mg/dL (8.5-10.5); Carbon Dioxide 29 mmol/L (22-29); Chloride 100 mmol/L (98-107); Creatinine Clr Calc Pharmacy 78.5384; Glucose 120 mg/dL (65-115); Osmolality Calculated 287 mOsm/kg (285-295); Potassium 3.8 mmol/L (3.5-5.1); Sodium 138 mmol/L (136-145)
[2020-06-25] MEDS: famotidine 20 mg/2 mL INJ IVP ×2 (07:09→20:10)
--- NOTE | 2020-06-25 08:51 | ANES.PREANE2 ---
Pre-Anesthetic Assessment Pre-Anesthetic Assessment: Height/Weight: Height 1.8 m Weight 54.25 kg Temp Pulse Resp BP Pulse Ox 98.0 F 104 H 18 102/70 93 06/24/20 11:48 06/25/20 08:16 06/25/20 08:11 06/25/20 08:00 06/25/20 08:11 Preop Diagnosis: Suspected lung cancer Proposed Procedure: Operation Date: 06/25/20 12:40 Proposed Procedures p Bronchoscopy(Not Applicable) - Biplab MD Holli Was Beta Poonam taken within 24 hours: N/A Was Clonidine taken within 24 hours: N/A Social: Social History: Tobacco and No alcohol Exam: Pre-Anes Outpt Exam: alert, oriented x 3 and regular rate & rhythm Airway: Submandibular: WNL Cervical ROM: WNL MP: 2 Pulmonary: Pulmonary: COPD Comments: Respiratory failure, right main bronchus stent, home O2 3L, lung mass Metabolic: Comments: Chronic steroids Anesthetic Plan: ASA status: 4 Anesthesia: General Risk of > 500 ml blood loss (7ml/kg in children): No Meds/Allergies Current Medications: Current Medications Generic Name Dose Route Start Last Admin Trade Name Freq PRN Reason Stop Dose Admin Alprazolam 1 mg 06/24/20 19:51 06/25/20 07:10 Alprazolam 1 Mg Tablet PO 1 mg TID PRN Administration Anxiety Famotidine 20 mg 06/24/20 20:00 06/25/20 07:09 Famotidine 20 Mg /2 Ml Inj IVP 20 mg Q12H JIM Administration Levofloxacin/Dextr ose 750 mg in 150 mls @ 100 mls/hr 06/24/20 21:00 06/24/20 23:33 Levaquin-D5w IV Infused Q24H JIM Infusion Protocol Ipratropium Bromid e 0.5 mg 06/24/20 20:00 06/25/20 08:14 Ipratropium 0.5 Mg/2.5 Ml Neb INHALATION 0.5 mg Q4H.RESPIRATORY S CH Administration Levalbuterol HCl 0.63 mg 06/24/20 19:55 06/24/20 23:19 Levalbuterol 0.6 3 Mg/3 Ml Neb INHALATION 0.63 mg Q4H.RESPIRATORY P RN Administration SHORTNESS OF TEX TH Levalbuterol HCl 0.63 mg 06/25/20 04:00 06/25/20 08:14 Levalbuterol 0.6 3 Mg/3 Ml Neb INHALATION 0.63 mg Q4H.RESPIRATORY S CH Administration Methylprednisolone Sodium Succinate 60 mg 06/24/20 20:00 06/25/20 07:10 Methylprednisolo ne Sod Succ 125 Mg /2 Ml Inj IVP 60 mg Q6H JIM Administration Quetiapine Fumarat e 200 mg 06/24/20 21:00 06/24/20 20:29 Quetiapine 100 M g Tablet PO 200 mg BEDTIME JIM Administration PFSH Anesthesia PFSH: Medical History Anxiety Cancer of left breast had surgery, other treatment not known currently DDD (degenerative disc disease), lumbar Lung cancer Surgical History H/O colonoscopy 2014 H/O foot surgery left x 2 right x 1 H/O removal of cyst abdomen H/O: hysterectomy vaginal History of breast implant removal (12/20/16) Explantation of postmastectomy implant, partial capsulotomy mastectomy site History of lobectomy of lung right History of open reduction and internal fixation (ORIF) procedure (12/08/14) left ankle, Dr Walden History of open reduction and internal fixation (ORIF) procedure (04/16/20) right bimalleolar ankle fracture, Dr Torres History of removal of Port-a-Cath (04/2019) S/P left mastectomy Status post left breast reconstruction Family History Other Cancer Heart disease Hypertension Denies family history of Anesthesia complication Bleeding disorder Social History Smoking and tobacco status: current every day smoker cigarettes Years cigarettes smoked: 40 [ Other cigarette details: Hx of 1 PPD x 40 Years ] Quit status (tobacco): considering quitting Second hand smoke exposure: Yes Smoking risk assessment/counseling performed?: Yes Alcohol intake: never Counseling given: No Counseling given: No Lives independently: Yes Household members: none Marital status: Single Current occupational status: disabled History of recent travel: No Current gender identity: Female Data Anesthesia CBC & Chem 7: 06/25/20 03:35 06/25/20 03:35 Other Labs: Laboratory Results - last 48 hr 06/24/20 06/24/20 06/24/20 12:08 12:08 12:08 WBC 10.3 H RBC 4.12 Hgb 12.4 Hct 38.7 MCV 93.9 MCH 30.1 MCHC 32.0 RDW 15.7 H Plt Count 318 MPV 10.7 H Neut % (Auto) 76.6 Lymph % (Auto) 12.6 [place] % (Auto) 8.0 Eos % (Auto) 1.7 Baso % (Auto) 0.7 Neut # (Auto) 7.90 H Lymph # (Auto) 1.3 [place] # (Auto) 0.8 Eos # (Auto) 0.2 Baso # (Auto) 0.1 Nucleated RBC % (auto) 0 Nucleated RBCs # 0.0 Sodium Cancelled Potassium Cancelled Chloride Cancelled Carbon Dioxide Cancelled Anion Gap Cancelled BUN Cancelled Creatinine Cancelled GFR Calculation Cancelled Glucose Cancelled Calculated Osmolality Cancelled Lactic Acid Cancelled Calcium Cancelled Total Bilirubin Cancelled AST Cancelled ALT Cancelled Alkaline Phosphatase Cancelled Troponin T Baseline Troponin T 120 Minute Delta Troponin T Troponin T Hi Sens 6Hr Troponin T Hi Sens 6Hr Delta NT-Pro-B Natriuret Pep Cancelled Total Protein Cancelled Albumin Cancelled Globulin Cancelled 06/24/20 06/24/20 06/24/20 12:08 13:37 13:37 WBC RBC Hgb Hct MCV MCH MCHC RDW Plt Count MPV Neut % (Auto) Lymph % (Auto) [place] % (Auto) Eos % (Auto) Baso % (Auto) Neut # (Auto) Lymph # (Auto) [place] # (Auto) Eos # (Auto) Baso # (Auto) Nucleated RBC % (auto) Nucleated RBCs # Sodium Potassium Chloride Carbon Dioxide Anion Gap BUN Creatinine GFR Calculation Glucose Calculated Osmolality Lactic Acid 1.6 Calcium Total Bilirubin AST ALT Alkaline Phosphatase Troponin T Baseline Cancelled 12 H Troponin T 120 Minute Delta Troponin T Troponin T Hi Sens 6Hr Troponin T Hi Sens 6Hr Delta NT-Pro-B Natriuret Pep Total Protein Albumin Globulin 06/24/20 06/24/20 06/24/20 13:37 15:56 19:45 WBC RBC Hgb Hct MCV MCH MCHC RDW Plt Count MPV Neut % (Auto) Lymph % (Auto) [place] % (Auto) Eos % (Auto) Baso % (Auto) Neut # (Auto) Lymph # (Auto) [place] # (Auto) Eos # (Auto) Baso # (Auto) Nucleated RBC % (auto) Nucleated RBCs # Sodium 142 Potassium 3.6 Chloride 102 Carbon Dioxide 30 H Anion Gap 13.6 BUN 9 Creatinine 0.6 GFR Calculation 102.0 Glucose 124 H Calculated Osmolality 294 Lactic Acid Calcium 8.9 Total Bilirubin 0.4 AST 9 ALT < 5 Alkaline Phosphatase 102 Troponin T Baseline Troponin T 120 Minute 11.40 H Delta Troponin T -0.60 L Troponin T Hi Sens 6Hr 9.91 Troponin T Hi Sens 6Hr Delta -2.09 L NT-Pro-B Natriuret Pep 491 H Total Protein 6.3 L Albumin 3.8 Globulin 2.5 06/25/20 06/25/20 03:35 03:35 WBC 7.4 RBC 3.89 L Hgb 11.6 Hct 36.2 L MCV 93.1 MCH 29.8 MCHC 32.0 RDW 14.8 Plt Count 304 MPV 11.0 H Neut % (Auto) 90.5 Lymph % (Auto) 7.9 [place] % (Auto) 1.1 Eos % (Auto) 0.0 Baso % (Auto) 0.1 Neut # (Auto) 6.73 Lymph # (Auto) 0.6 L [place] # (Auto) 0.1 L Eos # (Auto) 0.0 Baso # (Auto) 0.0 Nucleated RBC % (auto) 0 Nucleated RBCs # 0.0 Sodium 138 Potassium 3.8 Chloride 100 Carbon Dioxide 29 Anion Gap 12.8 BUN 13 Creatinine 0.6 GFR Calculation 102.0 Glucose 120 H Calculated Osmolality 287 Lactic Acid Calcium 8.7 Total Bilirubin AST ALT Alkaline Phosphatase Troponin T Baseline Troponin T 120 Minute Delta Troponin T Troponin T Hi Sens 6Hr Troponin T Hi Sens 6Hr Delta NT-Pro-B Natriuret Pep Total Protein Albumin Globulin Cardiac Studies: No Data to Display
[2020-06-25] MEDS: loratadine 10 mg Tablet PO (08:56)
[2020-06-25] MEDS: mirtazapine 15 mg Tablet PO (08:56)
[2020-06-25] MEDS: gabapentin 400 mg Capsule 800 MG PO ×2 (08:57→17:57)
[2020-06-25] MEDS: HYDROcodone-acetaminophen 10-325 mg Tablet 1 TAB PO (08:57)
[2020-06-25] MEDS: nicotine 14 mg Patch 1 PATCH TRANSDERMA (09:00)
--- NOTE | 2020-06-25 11:18 | PC.RESP ---
Smoking Cessation and Pulmonary Rehab sent to patient
--- NOTE | 2020-06-25 12:04 | P.PN_ITS ---
Subjective Subjective: Interval history: Overnight reports had a few episodes of shortness of breath, otherwise doing all right. Did not sleep very well. Denies chest pain. No nausea or vomiting. Vitals/I&O/Wt Last Vital Signs Temp 98.0 F 06/24/20 11:48 Pulse 90 06/25/20 11:16 Resp 20 H 06/25/20 11:16 BP 102/70 06/25/20 08:00 Pulse Ox 93 06/25/20 11:16 06/24/20 06/25/20 06/25/20 22:59 06:59 14:59 Intake Total 150 / 150 150 / 150 Balance 150 / 150 150 / 150 Weight last 48 hrs Weight 54.25 kg Weight 49.895 kg Physical Exam Const: COMMON NORMALS: no acute distress, patient oriented x3 and alert GENERAL APPEARANCE: cooperative ORIENTATION/CONSCIOUSNESS: Yes awake HENMT: COMMON NORMALS: oropharynx normal Neck/C-Spine: COMMON NORMALS: no JVD Resp: COMMON NORMALS: normal respiratory effort AUSCULTATION: wheezes and diminished lung sounds Cardio: COMMON NORMALS: no JVD, regular rhythm, S1 normal heart sound present, S2 normal heart sound present and No murmurs present (Cardio) RHYTHM: regular rhythm HEART SOUNDS: S1 normal heart sound present and S2 normal heart sound present GI: COMMON NORMALS: Normal to inspection, nondistended, normoactive bowel sounds present, Soft to palpation and non-tender PALPATION: Yes Soft to palpation Extremity: COMMON NORMALS: no joint enlargement and no pedal edema OTHER: R ankle without edema or redness Neuro: COMMON NORMALS: patient oriented x3 and moves all extremities SENSORIUM/ORIENTATION: Yes alert Skin: COMMON NORMALS: no rashes or lesions noted GENERAL SKIN EXAM: no rashes or lesions noted Data : 06/25/20 03:35 06/25/20 03:35 A&P Assessment and plan (1) Acute and chronic respiratory failure with hypoxia: Continue treatment for COPD distribution at this time with steroids, antibiotic, breathing treatments. High flow cannula support. Pending additional evaluation today regarding possible displaced right mainstem bronchus stent. Possible Port-A-Cath placement at the same time. Continue arrangements regarding radiation therapy due to recent postobstructive pneumonia with SCC lung. Status: Acute (2) At high risk for airway occlusion: As above. Status: Acute (3) Acute exacerbation of chronic obstructive airways disease: Solu-Medrol. Levaquin. Xopenex. Ipratropium nebs. Oxygen support. BiPAP support as needed. Collect sputum culture. Not likely COVID-19 given lack of other symptoms, recently negative test on 06/19. Status: Acute Additional A&P Information Squamous cell carcinoma of the lung: Continue pursuit of chemoradiation. States she was supposed to have her port placed today. To spare additional sedation and separate procedure, perhaps can try to coordinate port placement tomorrow as well. Recently postobstructive pneumonia: This appears to have mostly resolved Right ankle pain after fall: X-ray without change in internal fixation of bimalleolar fracture. Follow-up with podiatry. Has an appointment on . Attestations Medical Necessity Statement*: Continue admission for assessment management of acute hypoxic respiratory failure. 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
--- NOTE | 2020-06-25 12:39 | W.PM.OPSUD ---
Surgery/Procedure H&P Update DATE OF PROCEDURE: June 25, 2020 DATE H&P PERFORMED: 06/14/20 H&P UPDATE INFORMATION: I have reviewed H&P completed within last 30 days, I have examined patient prior to procedure and No changes to prior documentation PREOP DIAGNOSIS: Suspected lung cancer PLANNED PROCEDURE: Operation Date: 06/25/20 12:40 Proposed Procedures p Bronchoscopy(Not Applicable) - Velma De La Garza MD
--- NOTE | 2020-06-25 12:52 | PC.NURSE ---
TO OR PT taken to OR by bed with OR staff.
[2020-06-25] MEDS: lidocaine 1% INJ 20 mL XX (13:17)
--- NOTE | 2020-06-25 13:26 | SC_ITS ---
WS: [id number] C-arm fluoroscopy of the right chest for port placement, 06/25/2020 Clinical Data: PORT A CATH Comparison: Portable chest, 06/24/2020 Findings: The right sided port has been inserted into the right internal jugular vein and ends in the superior vena cava. SC/C-arm [place] for CVA [id number] Impression: Insertion of right Port-A-Cath.
--- NOTE | 2020-06-25 13:55 | PM.OP ---
Operative Report Date of procedure: June 25, 2020 Pre-op Diagnosis: Lung cancer Post-op diagnosis: same Procedure Done: Placement of PowerPort in the right internal jugular vein Fluoroscopic guidance and interpretation for placement of catheter Ultrasound guidance to access the right internal jugular vein Pathology: none sent Surgeon: Reji Wilson Anesthesia: MAC and General Condition: stable Disposition: ICU Procedure: The patient was taken to the Operating Room and the chest and neck bilaterally were prepped and draped in a sterile manner after the antibiotic had been administered and shoulder rolls had been placed. Ultrasound of the right internal jugular vein patent flow with no evidence of thrombus. A total of 10 mL of 1% lidocaine with 0.5% Marcaine was infiltrated at the site of planned entry into the right internal jugular vein . An introducer needle was then used to access the right internal jugular vein and after withdrawing blood syringe was removed and a guidewire passed under fluoroscopy into the superior vena cava. The site of the planned port was then marked on the chest and a 15 blade was used to make a 3 cm skin incision this was extended into the subcutaneous tissue using electrocautery and a subcutaneous pocket over the pectoralis fascia was created 2-0 Vicryl suture was used to suture the port to the pectoral fascia in the pocket on 3 sides. The catheter, after having been flushed with hep saline, was attached to the tunneler and a tunnel created between the port site and the right internal jugular vein entry site. Under fluoroscopy the dilator sheath was passed over the guidewire into the proximal superior vena cava. The inner dilator was removed and the sheath left behind and~ the catheter was introduced through the peel-away sheath with the tip in the superior vena cava. The peel-away sheath was removed. The proximal end of the catheter was cut to the right size and was attached to the port. Using a Julien needle the port was accessed, it withdrew blood easily and flushed easily. A final 5cc of heparin was used to flush the PowerPort. The subcutaneous tissue was approximated using interrupted 3-0 Vicryl sutures and the skin at the introducer site and the port site was closed using subcuticular running 4-0 Monocryl sutures. Surgical glue was applied and the patient was stable throughout the procedure. Fluoroscopic guidance and interpretation was performed for introduction of the guidewire in the right internal jugular vein, passage of dilator and placement of catheter tip in the distal superior vena cava.
--- NOTE | 2020-06-25 14:01 | ANE.PACU2 ---
Inpatient post-anesthesia follow up: Airway intact: Yes Vital signs: Temperature 98.0 F Pulse Rate [Apical ] 97 Pulse Rate [Curren t] 90 Pulse Rate 102 Respiratory Rate [ Current] 20 Respiratory Rate 20 Blood Pressure [Ri ght Arm] 115/87 Blood Pressure 83/64 Pulse Oximetry [Cu rrent] 93 Pulse Oximetry 92 Oxygen Delivery Me thod Heated High Flow Oxygen Flow Rate [ Current] 30 Oxygen Flow Rate 30 Fraction of Inspir ed Oxygen [ 50 Current] Fraction of Inspir ed Oxygen 50 Hydration adequate: Yes Nausea and vomiting: No Pain level: 1 Additional Comments: Sedated.
--- NOTE | 2020-06-25 14:10 | PC.NURSE ---
From OR Pt brought from OR by OR staff via bed. Pt is arousable and able to answer questions appropriately. Pt placed from 15l non rebreather back to HiFlow at 30L. Surgical incision to right upper chest where PAC has been placed is covered with gauze and tegaderm. SCDs are in place. VS WNL.
[2020-06-25] MEDS: heparin, porcine 1,000 unit/mL INJ 10 mL 6000 UNIT HE (14:15)
--- NOTE | 2020-06-25 14:36 | PM.OP ---
Operative Report Date of procedure: June 25, 2020 Pre-op Diagnosis: Displaced airway stent Post-op diagnosis: same Brief History: This is a 59-year-old lady who recently underwent tumor debulking of the right mainstem bronchus with stent placement, presented to the hospital yesterday with worsening shortness of breath, hypoxic respiratory failure and wheezing. CT scan of the chest demonstrated proximally displaced self-expanding metallic stent. She was brought to the OR today for bronchoscopic removal of the stent. Procedure: Name of the procedure: Bronchoscopy with removal of the displaced airway stent Indication: Displaced airway stent Anesthesia: General anesthesia Local anesthesia: The vocal cords, upper and lower trachea were anesthetized with 1% lidocaine. A total of 7 mL lidocaine was used. Description of the procedure: The patient was brought to the OR after obtaining consent. The patient was positioned optimally. The patient underwent laryngeal mask airway placement for general anesthesia. The bronchoscope was advanced through LMA. The vocal cords and epiglottis were anesthetized with 1% lidocaine. Hematoma was noted at the right vocal cord. The bronchoscope was passed through the vocal cords and the upper and lower trachea was anesthetized with 1% lidocaine. A displaced self-expanding metallic stent was noted in the lizzie. Using forcep the stent was gently removed and then brought out through the LMA. The bronchoscope was then introduced. The left side of the lung was normal. There was no endobronchial lesion. The right upper lobe bronchus was absent from previous surgery. The right mainstem bronchus had irregular previously known cancerous lesion. However, the opening to the right lower lobe bronchus was patent and I was able to pass the bronchoscope to examine the lower lobe segments. Complications: There is no immediate complications.
--- NOTE | 2020-06-25 14:41 | P.PN_ITS ---
Subjective Subjective: Interval history: The patient was seen and examined. He/she appeared comfortable prior to the bronchoscopy. Mild resting shortness of breath according to the patient. She had questions about the procedure which were all answered. Medications: Reviewed: Yes Vitals/I&O/Wt Last Vital Signs Temp 98.0 F 06/24/20 11:48 Pulse 102 H 06/25/20 12:00 Resp 20 H 06/25/20 12:00 BP 83/64 06/25/20 12:00 Pulse Ox 92 06/25/20 12:00 06/24/20 06/25/20 06/25/20 22:59 06:59 14:59 Intake Total 150 / 150 200 / 200 Balance 150 / 150 200 / 200 Weight last 48 hrs Weight 119 lb 9.6 oz Weight 110 lb Physical Exam Narrative: EXAM NARRATIVE: General: Patient is awake alert and oriented, in mild distress when resting Neck: No JVD Respiratory: Inspection: Barrel-shaped chest Auscultation: The patient has bilateral monophonic wheezing more prominent on the right than the left side, no crackles Cardiovascular: Regular rate and rhythm, S1-S2 present, no murmur, no peripheral edema. Abdomen: Soft, nontender, nondistended, positive bowel sound Musculoskeletal: No obvious joint deformity Skin: No rash Neuro: Mental status is normal, no gross cranial nerve deficit, normal motor and coordination. Data : 06/25/20 03:35 06/25/20 03:35 A&P Assessment and plan (1) At high risk for airway occlusion: The patient was found to have proximally dislodged right mainstem bronchus airway stent. The stent was over the lizzie. This was successfully removed. We will observe the patient overnight to make sure there is no complications such as bleeding. And if the patient remains okay overnight she can be discharged tomorrow. Status: Acute (2) Acute and chronic respiratory failure with hypoxia: Patient has chronic hypoxic respiratory failure. The acute worsening of her respiratory status was secondary to the partial occlusion of the left mainstem bronchus with the stent. Now that the stent has been removed, the patient should be able to return to her baseline activity and functional capacity. Status: Acute (3) COPD (chronic obstructive pulmonary disease): She will continue with her therapy as outpatient medications. Status: Acute (4) History of lung cancer: I had a conversation with the interventional director of operations home health at [facility]. He is not planning on doing any new stent at this time. The patient will benefit from combined chemoradiation therapy. She had undergone a port placement today. I will follow up with her as outpatient. 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
[2020-06-25] MEDS: quetiapine 100 mg Tablet 200 MG PO (20:11)
[2020-06-25] MEDS: levofloxacin-dextrose 5 % 750 MG/150 ML PREMIX 100 MG IV (20:16)
[2020-06-26] VITALS (18 sets, daily range): BP systolic 85–109; BP diastolic 50–68; PULSE 81–104; RESP 13–24; TEMP 36.6; O2SAT 93–100
[2020-06-26] MEDS: ipratropium 0.5 mg/2.5 mL Neb INHALATION ×2 (03:25→08:08)
[2020-06-26] MEDS: levalbuterol 0.63 mg/3 mL Neb INHALATION ×2 (03:25→08:08)
[2020-06-26 06:09] LABS: Basophils % 0.1 %; Hematocrit 34.9 % (37.0-47.0); Hemoglobin 11.1 g/dL (11.5-15.3); Lymphocytes # 0.4 10^3/uL (0.8-4.8); Mean Corpuscular HGB Conc 31.8 g/dL (30.0-36.0); Mean Corpuscular Hemoglobin 29.4 pg (28.0-34.0); Mean Corpuscular Volume 92.6 fL (81-99); Mean Platelet Volume 10.9 fL (7.4-10.4); Monocytes # 0.7 10^3/uL (0.2-0.9); Monocytes % 4.9 %; Neutrophils # 12.61 10^3/uL (1.8-7.7); Neutrophils % 91.5 %; Nucleated Red Blood Cells % 0 %; Platelet Count 307 10^3/cmm (130-400); Red Blood Count 3.77 10^6/uL (4.1-5.3); Red Cell Distribution Width 14.9 % (12.1-15.1); White Blood Count 13.8 10^3/uL (4.0-10.0)
[2020-06-26 06:25] LABS: Anion Gap 13.3 (5-19); Blood Urea Nitrogen 18 mg/dL (8-23); Calcium 8.8 mg/dL (8.5-10.5); Carbon Dioxide 30 mmol/L (22-29); Chloride 100 mmol/L (98-107); Glomerular Filtration Rate 85.4 mL/min (90-130); Glucose 143 mg/dL (65-115); Osmolality Calculated 294 mOsm/kg (285-295); Potassium 3.3 mmol/L (3.5-5.1); Sodium 140 mmol/L (136-145)
--- NOTE | 2020-06-26 10:05 | P.DS_ITS ---
Discharge Providers Date of Admission: 06/24/20 15:59 Date of Discharge: June 26, 2020 Attending Provider at Admission: Deion Lockhart Attending Provider at Discharge: Deion Lockhart Primary Care Provider: Flor Kumar Diagnoses at Discharge Discharge Diagnosis (1) At high risk for airway occlusion: Status: Acute (2) Acute and chronic respiratory failure with hypoxia: Status: Acute (3) COPD (chronic obstructive pulmonary disease): Status: Acute (4) History of lung cancer: Status: Acute Reason for Visit Reason for Visit: SOB Hospital Course Hospital Course Pleasant 59-year-old lady with squamous cell lung cancer, chronic hypoxia on 3 L oxygen by nasal cannula, recent near complete occlusion of right mainstem bronchus, postobstructive pneumonia, subsequently placement of right mainstem bronchus stent at [facility]. Currently having arrangements for radiation and chemotherapy. We will schedule for Port-A-Cath placement on 06/24. She reports that day after discharge after stent placement she started become progressively more short of breath, with wheezing, cough with scant phlegm production. In ER noted significantly hypoxic. Loud wheezes audible. CT angiogram chest PE protocol showed no PE, showed placement of right mainstem bronchial stent, and resolution of previous postobstructive pneumonia. On closer inspection of images the appearance was concerning for possible dislodgment of the stent into the trachea. Images were reviewed with interventional pulmonology at [facility]. Decision was made for additional inspection with bronchoscopy, and with noted dislodgment of the stent, and partial occlusion of left mainstem bronchus the stent had to be removed. She in addition has been treated for a suspected severe exacerbation of COPD with IV steroids, Levaquin, initially required BiPAP support. Subsequently weaned down to high flow cannula. This morning she was still on about 25 L heated high flow cannula. Reported feeling much better. Saturations in the 90s. Still noted bilateral wheezes. Somewhat diminished air entry, although overall does sound somewhat better compared to admission. She reported that she wanted to discharge home, leaving the hospital AGAINST MEDICAL ADVICE. We discussed with her that despite stent removal and improvement in wheezing, and how she feels, she still has persistent wheeze, diminished air entry. Still noted requiring more oxygen compared to usual. Discussed with her concern regarding worsening respiratory failure, and concern regarding progression of severe illness, and possibly even cardiac arrest with premature discharge. She states she understands the risks. She was willing to wait to try to switch over to high flow cannula as well as to wait for her medications, but states that she will not reconsider about staying. Discussed also regarding blood pressure which this morning's low, as low as 85/68. She states understanding. 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 She also underwent port placement at the same time as the bronchoscopy to allow for continued preparations for chemotherapy. On presentation she also reported having a fall day prior to admission, and twisting her ankle. This was imaged, with no new fracture identified. She will be following up with podiatry next . Physical Exam Const: COMMON NORMALS: no acute distress, patient oriented x3 and alert GENERAL APPEARANCE: cooperative ORIENTATION/CONSCIOUSNESS: Yes awake HENMT: COMMON NORMALS: oropharynx normal Neck/C-Spine: COMMON NORMALS: no JVD Resp: COMMON NORMALS: normal respiratory effort AUSCULTATION: wheezes (still present, although certainly not as severe as on admission) and diminished lung sounds Cardio: COMMON NORMALS: no JVD, regular rhythm, S1 normal heart sound present, S2 normal heart sound present and No murmurs present (Cardio) RHYTHM: regular rhythm HEART SOUNDS: S1 normal heart sound present and S2 normal heart sound present GI: COMMON NORMALS: Normal to inspection, nondistended, normoactive bowel sounds present, Soft to palpation and non-tender PALPATION: Yes Soft to palpation Extremity: COMMON NORMALS: no joint enlargement and no pedal edema OTHER: R ankle without edema or redness Neuro: COMMON NORMALS: patient oriented x3 and moves all extremities SENSORIUM/ORIENTATION: Yes alert Skin: COMMON NORMALS: no rashes or lesions noted GENERAL SKIN EXAM: no rashes or lesions noted Discharge Data Data Completed and Pending: Completed Studies During Hospitalization Category Date Time Status CT angio chest PE protcl [id number] Stat Cat Scan 06/24/20 12:05 Completed XR ankle RT min 3 V* [id number] Routine Exams 06/24/20 20:09 Completed XR chest 1V nikolai ble [id number] Urgent Exams 06/24/20 11:56 Completed Pending at discharge Category Date Time Status Basic Metabolic P rochelle AM LABS Lab 06/27/20 04:00 Ordered Complete Blood Co unt w/Auto AM LABS Lab 06/27/20 04:00 Ordered Sputum Culture an d Gram Stain Antoinettei ne Lab 06/24/20 19:57 Uncollected Labs from last 24 hours 06/26/20 06/26/20 04:59 04:59 WBC 13.8 H RBC 3.77 L Hgb 11.1 L Hct 34.9 L MCV 92.6 MCH 29.4 MCHC 31.8 RDW 14.9 Plt Count 307 MPV 10.9 H Neut % (Auto) 91.5 Lymph % (Auto) 3.0 Riley % (Auto) 4.9 Eos % (Auto) 0.0 Baso % (Auto) 0.1 Neut # (Auto) 12.61 H Lymph # (Auto) 0.4 L Riley # (Auto) 0.7 Eos # (Auto) 0.0 Baso # (Auto) 0.0 Nucleated RBC % (a uto) 0 Nucleated RBCs # 0.0 Sodium 140 Potassium 3.3 L Chloride 100 Carbon Dioxide 30 H Anion Gap 13.3 BUN 18 Creatinine 0.7 GFR Calculation 85.4 L Glucose 143 H Calculated Osmolal ity 294 Calcium 8.8 Vitals: Last Vital Signs Temp 98.2 F 06/25/20 20:00 Pulse 88 06/26/20 09:19 Resp 20 H 06/26/20 09:19 BP 85/68 06/26/20 08:00 Pulse Ox 98 06/26/20 09:19 Discharge Plan Discharge Patient Disposition: Left Against Medical Advice Condition: Stable Prescriptions: New prednisone 20 mg tablet 20 mg PO DAILY Qty: 20 RF: 0 levofloxacin 750 mg tablet 750 mg PO DAILY 7 Days Qty: 7 RF: 0 Continued loratadine [Claritin] 10 mg tablet 10 mg PO DAILY RF: 0 Anoro Ellipta 62.5-25 mcg/actuation blister with device 1 inh inhalation DAILY 30 Days Qty: 60 RF: 3 mirtazapine 15 mg tablet 15 mg PO DAILY Qty: 30 RF: 3 quetiapine 200 mg tablet 200 mg PO BEDTIME RF: 0 hydrocodone-acetaminophen 10-325 mg tablet 1 tab PO Q6H PRN (Reason: Pain) RF: 0 alprazolam 1 mg tablet 1 mg PO TID PRN (Reason: Anxiety) RF: 0 gabapentin 400 mg capsule 800 mg PO BID RF: 0 sertraline 100 mg Tablet 100 mg PO BEDTIME RF: 0 albuterol sulfate 90 mcg/actuation HFA aerosol inhaler 2 puff inhalation QID PRN (Reason: shortness of breath or wheezing) 30 Days Qty: 8.5 RF: 3 Discontinued amoxicillin-pot clavulanate [Augmentin] 875-125 mg tablet 1 tab PO BID 10 Days Qty: 20 RF: 0 prednisone 20 mg tablet 40 mg PO DAILY 5 Days Qty: 10 RF: 0 No Action (DME) supinator See Rx Instructions .ROUTE .MEDSUPPLY Qty: 1 RF: 0 (DME) ASO See Rx Instructions .Route .MEDSUPPLY Qty: 1 RF: 0 (DME) Cam boot See Rx Instructions .Route .MEDSUPPLY Qty: 1 RF: 0 (DME) Katarzyna AFO ankle brace See Rx Instructions .Route .MEDSUPPLY Qty: 1 RF: 0 Discharge Orders: Discharge Order (Routine); Ordered 06/26/20 Ordered By: Deion Lockhart Referrals: Flor Kumar FNP [Primary Care Provider] - 1-3 days Velma De La Garza MD [Physician] - 4-7 days Heriberto Rodriguez MD [Physician] - 1-3 days Mehul Olmos MD [Staff Physician] - 4-7 days Discharge Diet: Usual diet Discharge Activity: Oxygen as instructed Patient Instructions: Chronic Obstructive Pulmonary Disease (GEN), Against Medical Advice (DC), Hypoxia (GEN) Activity Restrictions/Additional Instructions: Please be aware that you are not ready for discharge, your oxygen level is still low, dangerously so, and you risking worsening of respiratory failure, disab ility and . You are asked to reconsider and stay in the hospital for further assessment and treatment. You are otherwise asked to please proceed to ER to resume her treatment at any time without any precautions. Otherwise please make sure to follow-up at soonest available appointment with your primary care provider and lung specialist. Please call radiation oncology clinic and oncology clinic to resume preparations for radiation therapy and chemotherapy as soon as possible once you are able to. Discharge Attestations Time Spent in Discharge Care*: greater than 30 min Quality Metrics Clinical Quality Measures During this hospital stay, did patient experience: None Coding Level of Care Code Acute Chg FW DC note Diagnoses At high risk for airway occlusion Z91.89 Acute and chronic respiratory failure with hypoxia J96.21 COPD (chronic obstructive pulmonary disease) J44.9 History of lung cancer Z85.118
[2020-06-26] MEDS: famotidine 20 mg/2 mL INJ IVP (10:08)
[2020-06-26] MEDS: loratadine 10 mg Tablet PO (10:09)
[2020-06-26] MEDS: gabapentin 400 mg Capsule 800 MG PO (10:09)
[2020-06-26] MEDS: mirtazapine 15 mg Tablet PO (10:10)
[2020-06-26] MEDS: nicotine 14 mg Patch 1 PATCH TRANSDERMA (10:10)
--- NOTE | 2020-06-26 10:22 | PC.NURSE ---
requesting to leave ama Dr Hutchison here aware did sent in RX to pharmacy and meds given for this morning o2 changed to 3l nc as per home
--- NOTE | 2020-06-26 10:49 | PC.NURSE ---
attempting to set up home o2 tank as left hers at home... called company will be at least one hour . Visitor here which is her transport home and she refuses to wait at this time .. caution pt on risk of going without oxygen and pt stated i have done it before and i am going home
== END 2020-06-26 11:00 | disposition left against medical advice (07) | DRG 919 ==
LOC: ER 17:08 → ICU 18:11
PROVIDERS: Internal Medicine Critical Care Medicine; Surgery; Admitting Provider Internal Medicine; Emergency Provider Family Medicine; PCP Nurse Practitioner Family; Visit Provider Internal Medicine
PROC: 0BJ08ZZ Inspection of Tracheobronchial Tree, Via Natural or Artificial Opening Endoscopic (ICD-10-PCS; CPT 31622; principal; 2020-06-25 12:30)
PROC: 02HV33Z Insertion of Infusion Device into Superior Vena Cava, Percutaneous Approach (ICD-10-PCS; 2020-06-25 12:30)
DX: T85.628A Displacement of other specified internal prosthetic devices, implants and grafts, initial encounter (principal); J96.21 Acute and chronic respiratory failure with hypoxia; C34.11 Malignant neoplasm of upper lobe, right bronchus or lung; J44.1 Chronic obstructive pulmonary disease with (acute) exacerbation; Y82.8 Other medical devices associated with adverse incidents; Z85.3 Personal history of malignant neoplasm of breast; Z87.01 Personal history of pneumonia (recurrent); Z99.81 Dependence on supplemental oxygen; R59.0 Localized enlarged lymph nodes; F41.9 Anxiety disorder, unspecified; Z90.2 Acquired absence of lung [part of]; Z90.12 Acquired absence of left breast and nipple; F17.210 Nicotine dependence, cigarettes, uncomplicated; Z66 Do not resuscitate; Z53.29 Procedure and treatment not carried out because of patient's decision for other reasons; M25.571 Pain in right ankle and joints of right foot; X50.1XXA Overexertion from prolonged static or awkward postures, initial encounter; Z79.891 Long term (current) use of opiate analgesic; Z79.51 Long term (current) use of inhaled steroids
CPT/HCPCS: 36415; 71045; 71275; 73610; 76000; 77001; 80048; 80053; 83605; 83880; 84484; 85025; 93005; 94640; 94660; 94664; 96365; 96372; 96375; 99291; C1788; J0690; J1100; J1644; J1956; J2060; J2405; J2704; J2765; J2930; J3010; J3490; J3535; J7614; J7644; Q9967

== ENCOUNTER 2020-06-28 13:19 | Outpatient (CLI) | payer MEDICARE, MEDICAID, SELFPAY ==
--- NOTE | 2020-06-28 13:28 | MR_ITS ---
WS: [id number] MRI HEAD WITH CONTRAST TECHNIQUE: Sagittal T1, T2 axial, T2 axial FLAIR, axial susceptibility weighted imaging, axial diffus ion weighted images, and coronal T2 images were obtained. Pre and post-T1 axial and post T1 coronal i mages. ADC and FSPGR images. CLINICAL INFORMATION: LUNG CANCER;RE-STAGING EVALUATION COMPARISON: MRI 2012 FINDINGS: No evidence of restricted diffusion to suggest acute ischemia. Ventricular system and basal cisterns are patent. Mild small vessel changes. Moderate parenchymal volume loss. Normal posterior fossa. Norm al vascular flow voids at the skull base. No extra-axial fluid collections. No evidence of mass or ma ss effect. Paranasal sinuses and mastoid air cells are well aerated. No hemosiderin on the susceptibly weighted images. Normal optic chiasm and pituitary infundibulum. Mi ld symmetric atrophy temporal lobes and hippocampal formations. No abnormal intracranial enhancement. No evidence of enhancing intracranial metastatic disease. Kezia l dural venous sinuses. MR/MR head wo/w con [id number] IMPRESSION: 1. No evidence of enhancing intracranial metastatic disease. 2. Mild small vessel changes with moderate parenchymal volume loss. 3. No restricted diffusion to suggest acute ischemia. 4. No other significant findings.
[2020-06-28] MEDS: gadobenate dimeglumine 20 mL vial IV (15:12)
== END 2020-06-28 13:20 | disposition home or self-care (01) ==
LOC: RADSHAW 13:25
PROVIDERS: PCP Nurse Practitioner Family; Visit Provider Internal Medicine Hematology & Oncology
DX: C34.01 Malignant neoplasm of right main bronchus (principal); C34.11 Malignant neoplasm of upper lobe, right bronchus or lung
CPT/HCPCS: 70553; A9577

== ENCOUNTER → 2020-07-01 09:04 | Outpatient (BNVA) | payer MEDICARE, MEDICAID, SELFPAY | PROVIDERS: PCP Nurse Practitioner Family; Visit Provider Podiatrist Foot & Ankle Surgery | DX: S82.841G Displaced bimalleolar fracture of right lower leg, subsequent encounter for closed fracture with delayed healing (principal) | CPT/HCPCS: 73610 ==

== ENCOUNTER 2020-07-05 06:34 | Outpatient (RCR) | payer MEDICARE, MEDICAID, SELFPAY ==
--- NOTE | 2020-07-05 | CT_ITS ---
Radiation Therapy Planning CT images; total exam DLP: 308.87 mGy-cm MTDD
== END 2020-07-09 23:59 | disposition home or self-care (01) ==
LOC: ONCMED 06:34
PROVIDERS: PCP Nurse Practitioner Family; Visit Provider Radiology Radiation Oncology
DX: Z51.0 Encounter for antineoplastic radiation therapy (principal); C34.01 Malignant neoplasm of right main bronchus
CPT/HCPCS: 77300; 77301; 77334; 77338; 77470; Q9967

== ENCOUNTER 2020-08-06 05:45 | Outpatient (RCR) | payer MEDICARE, MEDICAID, SELFPAY ==
[2020-07-12 09:04] LABS: Basophils % 0.2 %; Hematocrit 39.1 % (37.0-47.0); Hemoglobin 12.5 g/dL (11.5-15.3); Lymphocytes # 0.4 10^3/uL (0.8-4.8); Lymphocytes % 4.4 %; Mean Corpuscular Hemoglobin 30.6 pg (28.0-34.0); Mean Corpuscular Volume 95.6 fL (81-99); Mean Platelet Volume 10.4 fL (7.4-10.4); Monocytes % 0.2 %; Neutrophils # 8.63 10^3/uL (1.8-7.7); Neutrophils % 94.9 %; Nucleated Red Blood Cells % 0 %; Platelet Count 317 10^3/cmm (130-400); Red Blood Count 4.09 10^6/uL (4.1-5.3); Red Cell Distribution Width 14.9 % (12.1-15.1); White Blood Count 9.1 10^3/uL (4.0-10.0)
[2020-07-12 09:26] LABS: Alanine Aminotransferase 9 U/L (0-33); Albumin Level 4.2 g/dL (3.5-5.2); Alkaline Phosphatase 111 IU/L (35-105); Aspartate Amino Transferase 13 U/L (0-32); Chloride 102 mmol/L (98-107); Globulin 2.7 g/dL (1.3-4.6); Glucose 153 mg/dL (65-115); Potassium 4.1 mmol/L (3.5-5.1); Sodium 138 mmol/L (136-145); Total Protein 6.9 g/dL (6.6-8.7)
[2020-07-12 09:57] LABS: Anion Gap 18.1 (5-19); Blood Urea Nitrogen 17 mg/dL (8-23); Calcium 8.8 mg/dL (8.5-10.5); Carbon Dioxide 22 mmol/L (22-29); Glomerular Filtration Rate 73.2 mL/min (90-130); Osmolality Calculated 291 mOsm/kg (285-295); Total Bilirubin 0.3 mg/dL (0.15-1.2)
--- NOTE | 2020-07-12 10:44 | ONCRAD TMN_ITS ---
Radiation Oncology Treatment Management Note Patient Name: Natalee Leach Date of : 1960 Date of Service: 07/12/2020 Attending Physician: Heriberto Rodriguez M.D. Natalee Leach is a 59 year-old white female diagnosed with recurrent non-small cell lung cancer (squamous cell). 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 Cisplatin/Gemzar was administered. Recent PET/CT demonstrated a right hilar mass with EBUS confirming an invasive squamous cell carcinoma. The patient has received 2 Gy of a prescribed 60 Kim with an intensity modulated radiotherapy plan utilizing a step and shoot treatment technique. She has been prescribed carboplatin (AUC 2) and paclitaxel (50 mg/m???) weekly during therapy. Upon review of systems, she denied pulmonary symptoms. On physical examination, the patient weighed 115 lbs. Her temperature was 96.8 ???F with a blood pressure of 122/81 mmHg. The pulse was 78 bpm and her respiratory rate was 18. Oxygen saturation while breathing 3L oxygen via nasal cannula was 99%. There was no erythema within the treatment brown. Continue thoracic radiotherapy as prescribed. Signed by: Dr. Heriberto Rodriguez 07/12/2020 10:45:29 AM
[2020-07-12] MEDS: palonosetron 0.25 mg/5 mL SDV IVP (11:00)
[2020-07-12] MEDS: sodium chloride 0.9% 250 ML 75 ML IV (11:00)
[2020-07-12] MEDS: famotidine 20 mg/2 mL INJ IVP (11:01)
[2020-07-12] MEDS: diphenhydrAMINE 50 mg/mL SDV 1mL 25 MG IVP (11:03)
[2020-07-12] MEDS: fosaprepitant 150 MG in sodium chloride 0.9% 150 ML 300 MG IV (11:05)
[2020-07-19 09:51] LABS: Basophils % 0.7 %; Eosinophils # 0.2 10^3/uL (0.0-0.8); Eosinophils % 4.3 %; Hematocrit 33.9 % (37.0-47.0); Hemoglobin 10.8 g/dL (11.5-15.3); Lymphocytes # 0.7 10^3/uL (0.8-4.8); Lymphocytes % 15.8 %; Mean Corpuscular HGB Conc 31.9 g/dL (30.0-36.0); Mean Corpuscular Hemoglobin 30.1 pg (28.0-34.0); Mean Corpuscular Volume 94.4 fL (81-99); Mean Platelet Volume 9.9 fL (7.4-10.4); Monocytes # 0.2 10^3/uL (0.2-0.9); Monocytes % 5.7 %; Neutrophils # 3.04 10^3/uL (1.8-7.7); Neutrophils % 71.8 %; Nucleated Red Blood Cells % 0 %; Platelet Count 299 10^3/cmm (130-400); Red Blood Count 3.59 10^6/uL (4.1-5.3); Red Cell Distribution Width 13.8 % (12.1-15.1); White Blood Count 4.2 10^3/uL (4.0-10.0)
[2020-07-19 10:06] LABS: Alanine Aminotransferase < 5 U/L (0-33); Albumin Level 3.8 g/dL (3.5-5.2); Alkaline Phosphatase 91 IU/L (35-105); Anion Gap 11.9 (5-19); Aspartate Amino Transferase 9 U/L (0-32); Blood Urea Nitrogen 12 mg/dL (8-23); Calcium 8.1 mg/dL (8.5-10.5); Carbon Dioxide 28 mmol/L (22-29); Chloride 100 mmol/L (98-107); Glomerular Filtration Rate 125.9 mL/min (90-130); Glucose 112 mg/dL (65-115); Osmolality Calculated 283 mOsm/kg (285-295); Potassium 3.9 mmol/L (3.5-5.1); Sodium 136 mmol/L (136-145); Total Bilirubin 0.2 mg/dL (0.15-1.2); Total Protein 5.8 g/dL (6.6-8.7)
--- NOTE | 2020-07-19 10:17 | ONCRAD TMN_ITS ---
Radiation Oncology Treatment Management Note Patient Name: Natalee Leach Date of : 1960 Date of Service: 07/19/2020 Attending Physician: Heriberto Rodriguez M.D. Natalee Leach is a 59 year-old white female diagnosed with recurrent non-small cell lung cancer (squamous cell). 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 Cisplatin/Gemzar was administered. Recent PET/CT demonstrated a right hilar mass with EBUS confirming an invasive squamous cell carcinoma. The patient has received 12 Gy of a prescribed 60 Kim with an intensity modulated radiotherapy plan utilizing a step and shoot treatment technique. She has been prescribed carboplatin (AUC 2) and paclitaxel (50 mg/m???) weekly during therapy. Upon review of systems, she denied pulmonary symptoms. On physical examination, the patient weighed 114 lbs. Her temperature was 97.7??? F with a blood pressure of 108/71 mmHg. The pulse was 92 bpm and her respiratory rate was 20. Oxygen saturation while breathing 3L oxygen via nasal cannula was 99%. There was no erythema within the treatment brown. Decreased breath sounds were auscultated. Continue thoracic radiotherapy as planned. Signed by: Dr. Heriberto Rodriguez 07/19/2020 10:16:29 AM
[2020-07-19] MEDS: palonosetron 0.25 mg/5 mL SDV IVP (12:05)
[2020-07-19] MEDS: sodium chloride 0.9% 250 ML 75 ML IV (12:05)
[2020-07-19] MEDS: famotidine 20 mg/2 mL INJ IVP (12:26)
[2020-07-19] MEDS: sodium chloride 0.9% (100 ml) 100 ML 500 ML (12:28)
[2020-07-19] MEDS: diphenhydrAMINE 50 mg/mL SDV 1mL 25 MG IVP (12:28)
[2020-07-19] MEDS: fosaprepitant 150 MG in sodium chloride 0.9% 150 ML 300 MG IV (12:46)
--- NOTE | 2020-07-20 20:36 | ONC FU_ITS ---
[facility] Patient Note Patient: Natalee Herron Unit #: [id number]: 1960 Dictated By: Frank ButcherDate of Visit: July 12, 2020 Onc MED Follow-Up/Prog Note Chief Complaint: Breast cancer- LEFT breast???moderately differentiated invasive ductal carcinoma grade 2 of 3 with positive margins within 1 mm ER positive AR 3% HER-2/sam negative-April 2010. Squamous cell lung cancer-Right upper lobectomy-October 2017. Squamous cell carcinoma-Right bronchus/endobronchial lesion- June 03, 2020. History of Present Illness: Ms Herron is a 59 year-old woman with grade 2 invasive ductal carcinoma of the left breast, stage IIIA (pT3, pN1a, M0), ER/AR positive and HER-2/sam negative. She was diagnosed with Squamous cell Lung cancer In October 2017. She also has a complex psychiatric history. She was diagnosed with a left breast cancer in April 2010. Mammogram at that time showed a 3 cm suspicious lesion at the 3:00 position of the left breast. She underwent a total mastectomy with axillary node dissection and immediate reconstruction on 05/25/10. Her pathology revealed 5.3 cm moderately differentiated invasive ductal carcinoma, grade 2/3, with positive margins within 1 mm. It is unclear if she had re-resection. There was involvement in 2 out of 8 lymph nodes. Prognostic markers were notable for ER 99%, AR 3%, and HER-2/sam 0 by IHC. Thus, her disease was stage IIIA (pT3, pN1a, M0). She received adjuvant chemotherapy with Adriamycin and Cyclophosphamide for 4 cycles followed by Docetaxel for 4 cycles every [address] Lilly at [place]. The chemotherapy was complicated by significant hematological toxicity and peripheral neuropathy. She completed adjuvant radiation treatment on 02/16/11. She was lost to followup and self-referred to [facility] to establish care. She was first seen here in late June 2011. She was postmenopausal due to previous hysterectomy/bilateral salpingo-oophorectomy. She was started on adjuvant hormonal therapy with Arimidex 1 mg daily[address] A staging CT scan of the chest, abdomen, and pelvis on 08/10/11 showed no evidence of metastatic disease. She had right breast mammogram on 09/15/11 BI-RADS 1. CA 27-29 was 25. She had vitamin D insufficiency, and she continued on calcium and vitamin D. DEXA scan in January of 2011 had no osteoporosis. [facility] but was reluctant to do so. For her painful peripheral neuropathy she established care with neurology. She also established care with pain management. She was then lost to followup here since February of 2013. DEXA scan 01/05/14 showed normal bone density. Her left breast discomfort had progressed to claudine severe burning pain. CT of the chest on 12/30/2013 showed stable implant with no evidence of cancer recurrence. She continued on Arimidex therapy. She underwent a left breast delay reconstruction. She reports taking high dose vitamin D, as she had recurrent deficiency. She was restarted on high-dose vitamin D. On 10/15/2017 she underwent right upper lobe lobectomy which showed 1.4 x 1 cm squamous cell carcinoma and microscopic satellite lesion 1 cm distant from main tumor. 3 hilar lymph nodes were removed showed no evidence of metastatic disease. She began treatment with Cisplatin/Gemzar on 11/27/2017. She had required growth factor support for neutropenia. She concluded her adjuvant chemotherapy with cisplatin and gemcitabine on 03/18/2018. Follow-up CT PET scan done on 05/11/2018 showed there is a new abnormal activity in the right paratracheal node, measuring 8mm with SUV of 5.9 Underwent bronchoscopy and mediastinoscopy on 06/12/2018 and the right upper lobe, mediastinal mass, bronchoscopy biopsy showed no malignant cell or significant atypia seen Lymph node, proximal right main bronchus, mediastinoscopy with biopsy showed benign lymph node with sinus histiocytosis. Follow-up CT PET scan done on 09/28/2018 showed the right paratracheal lymph node is progressed on the current now has SUV of 11.7 compared to 5.9 previously. No new lesions seen. Again , biopsy of this lymph node was done via mediastinoscopy on 06/12/2018 and it was normal Ms Herron underwent mediastinoscopy and flex bronchoscopy on 12/11/[address] Claros. But because of extensive scarring and adhesions, biopsy from the abnormal lymph node could not obtained. He recommended transbronchial biopsy by EBUS. Subsequently patient decided not to do anything and even stop coming for follow-up. In April 2020, she presented to the hospital with progressive shortness of breath. She underwent CTA chest on April 25, 2020 which showed extensive nonspecific pneumonia in both lung. There was extensive endobronchial occlusion of right lung and negative for pulmonary embolism. Ms Herron was referred to pulmonology and saw Dr. De La Garza on May 07, 2020. She underwent PET/CT scan on May 21, 2020 which showed abnormal activity associated with right paratracheal/hilar mass consistent with a primary lung. Obstruction of right mainstem bronchus. And no distant metastatic disease. Ms Herron then underwent bronchoscopy on June 03, 2020, right bronchus endobronchial lesion biopsy which confirmed squamous cell carcinoma. Mrs. Herron was seen by Dr. Olmos on June 07, 2020 for consultation for continuation of care. Per his note at that time he felt she had stage IIIa squamous cell carcinoma involving the right lung. She was on continuous oxygen supplementation at 3 to 4 L/min and still actively smoking. Her case was discussed with radiation oncology???Dr. Rodriguez and treatment options included radiation alone versus combined chemoradiation with curative intent. Dr. Rodriguez felt that radiation alone would not be effective to relieve endobronchial obstruction so therefore weekly carboplatin paclitaxel concurrent with radiation therapy was recommended. She was referred to Dr. Wilson for Port-A-Cath placement and an MRI of the brain for staging was requested. She did have an MRI of the head with and without contrast on 06/28/2020. There was no evidence of enhancing intracranial metastatic disease. Mild small vessel changes with moderate parenchymal volume loss. No restricted diffusion to suggest acute ischemia and no other significant findings. Mrs. Herron was seen by Dr. Williams Leavitt at [facility] on June 22, 2030 for bronchoscopy with tumor debulking and possible stent placement. She had rigid bronchoscopy, cryotherapy of GUILLERMO/BI and SCM stent placement into the GUILLERMO/BI. The pathology from the bronchial intermedius mass on 06/22/2020 reported invasive moderate differentiated squamous cell carcinoma, keratinizing type. Immunostaining for PD-L1 was requested in is to be reported in an addendum. The rigid bronchoscopy reported that our MS was complete David occluded with mass. Debulking was also performed with the microdebrider. Cryotherapy of the GUILLERMO/BI: Cryotherapy was performed in the right mainstem bronchus of the lung for destruction of abnormal tissue. The freezing duration was 6 seconds and thawing duration was 5 seconds. Posttreatment findings: Lumen size was 20% of normal. DELANO stent placement into the GUILLERMO/BI a 10 mm x 40 mm covered Aero tracheobronchial stent was placed into the right mainstem bronchus of the lung and the bronchus intermedius of the lung under bronchoscopic guidance (passing a stent over a guidewire) and using a wire. The post stent lumen size was 80% of normal. The stent block to the orifice of the right upper lobe bronchus. The stent was noted to be in good position per attending physician, Zhang Chandler MD report. Mrs. Herron is here today for follow-up and initiation of concurrent chemoradiation. She will have weekly carboplatin AUC 2 and paclitaxel 50 mg per metered squared. She states she had a port placed on June 25, 2020. She states she is due to have hardware removed out of her ankle on [address] Torres. She will does need to coordinate radiation with this. She has been having intermittent nausea. We discussed using scopolamine patch as she does not feel that Compazine works well for her. She is also reporting that she did not sleep well last night due to the steroid premedications. She states overall her breathing is better. She denies any fever or chills. She denies any hemoptysis. She denies chest pain or palpitations. She has had no nausea or vomiting this morning. She denies any diarrhea or constipation. She states her bladder is normal for her. Her ECOG is 2. . Past Medical History: Cancer (Stage IIIA, pT3, N1a, ER/AR positive, HER2 negative by IHC left breast cancer status post resection) Complex psychiatric history Seizure Stroke Past Surgical History: Hernia repair - Ventral hernia repair Hysterectomy Several foot surgeries bilaterally on bunions Right internal jugular vein PowerPort per Dr. Wilson in 2020 Bronchoscopy in 2019 Mediastinoscopy in 2019 Right upper lobectomy in 2018 Left sided mastectomy in [address] BONE DENSITY in 2013 Allergies: sulfa Medications: Albuterol Sulfate HFA 2 Puff(s) (of 108 (90 base) mcg/act) Aerosol, solution Inhalation four times a day PRN Anoro Ellipta 1 Inhalation (of 62.5-25 mcg/inh) Aerosol Powder, Breath Activated Inhalation daily Gabapentin 1 (300 mg) Capsule Oral t.i.d. Hydrocodone-Acetaminophen 1 (10-325 mg) Tablet Oral q 6 hours PRN Loratadine 1 (10 mg) Tablet Oral daily Mirtazapine 1 Tablet (of 15 mg) Oral daily Prochlorperazine Maleate 1 Tablet (of 10 mg) Oral q 4 hours PRN QUEtiapine Fumarate 1 Tablet (of 200 mg) Oral at bedtime Family History: Ms. Herron's mother is : chronic obstructive pulmonary disease. Ms. Herron's father is alive: Prostate Cancer. Ms. Herron has 1 brother who is alive: prostate cancer. She has 1 sister who is : brain cancer. She has 2 paternal uncles: 1 alive, 1 . Ms. Herron's first paternal uncle's cancer. Another paternal uncle's prostate cancer. Social History: Ms. Herron is single and she is a disabled. She is a daily smoker who has smoked 1.0 pack/day for 41 years. She has no history of drinking. Has no history of drug abuse. Patient goes to the pain clinic for her pain medications. Review Of Symptoms: <See Above> Vital Signs: Performed on July 12, 2020 10:24 Height - 70.00 in Weight - 115.2 lbs Temperature - 96.8 F Pulse - 71 Respiration - 18 BP - 122/81 mm(hg) O2 Sat - 99 % Pain - 7 Performed on July 12, 2020 10:24 BMI - 16.53 kg/m2 (LOW) Performed on July 12, 2020 09:16 Height - 70.00 in Weight - 115.2 lbs (HIGH) BSA - 1.65 sq.m BMI - 16.53 (LOW) Temperature - 96.8 F (LOW) Pulse - 117 /min (HIGH) Respiration - 18 /min BP - 122/81 mm(hg) O2 Sat - 99 % Pain - 8,2 - Ambulatory/capable of all self-care, unable to perform any work activities. Up and about more than 50% of waking hours. (ECOG) Physical Examination: Constitutional Alert, oriented, no acute distress. Skin pink, warm and dry. Head Normocephalic; atraumatic. Eyes Conjunctivae and sclerae are clear and without icterus. Pupils are reactive and equal. Neck Supple without masses or thyromegaly. No jugular venous distension. Hematologic/Lymphatic No petechiae or purpura. No tender or palpable lymph nodes in the cervical, supraclavicular area. Respiratory Lungs are clear to auscultation without rhonchi or wheezing. Cardiovascular Regular rate and rhythm of heart without murmurs,clicks, gallops or rubs. Chest Right chest wall PowerPort insertion site has healed well. It is unremarkable. Abdomen Non-tender, non-distended, no masses, ascites. Good bowel sounds noted in all quads. No guarding or rebound tenderness. No pulsatile masses. Back/Spine Non-tender to palpation. Extremities No visible deformities, no cyanosis, clubbing or edema. Pulses 4+ and equal bilaterally. Musculoskeletal No tenderness or swelling, normal range of motion without obvious weakness. Neurologic No sensory or motor deficits, normal cerebellar function, normal gait. Psychiatric Alert and oriented times three. Coherent speech. Verbalizes understanding of our discussions today. Laboratory:Test performed on July 19, 2020 09:35 Sodium 136 mmol/L Potassium 3.9 mmol/L Chloride 100 mmol/L CO2 28 mmol/L Anion Gap 11.9 BUN 12 mg/dL Creatinine 0.5 mg/dL Cr Clearance (Est) 98.7000 mL/min eGFR 125.9 mL/min Glucose 112 mg/dL Osmolality - Calculated 283 mOsm/kg Calcium 8.1 mg/dL Protein, Total 5.8 g/dL Albumin 3.8 g/dL Globulin 2.0 g/dL Bilirubin, Total 0.2 mg/dL ALT (SGPT) < 5 U/L AST (SGOT) 9 U/L Alkaline Phosphatase 91 IU/L WBC 4.2 10 3/uL RBC 3.59 10 6/uL HGB 10.8 g/dL HCT 33.9 % MCV 94.4 fL MCH 30.1 pg MCHC 31.9 g/dL RDW 13.8 % Platelet Count 299 10 3/cmm MPV 9.9 fL Neutrophils 3.04 10 3/uL Lymphocytes 0.7 10 3/uL Monocytes 0.2 10 3/uL Eosinophils 0.2 10 3/uL Basophils 0.0 10 3/uL Neutrophil % 71.8 % Lymphocyte % 15.8 % Monocyte % 5.7 % Eosinophil % 4.3 % Basophils % 0.7 % NRBC % 0 % Impression: Newly diagnosed squamous cell carcinoma of right lung per bronchoscopy assisted right endobronchial lesion biopsy done on June 03, 2020, T1 CT PET scan done on May 21, 2020 showed 3 x 3.8 cm right paratracheal/hilar mass with SUV of 20.8 and no evidence of distant mets, N2-, clinical stage IIIa h/o squamous cell carcinoma of right upper lobe of lung status post right upper lobectomy with hilar lymph node sampling on 10/15/2017, final pathology report showed moderately differentiated, focally keratinizing, 1.4 x 1 cm mass with microscopic satellite lesion 1 cm distant from main tumor mass and 0.2 cm from pleural surface in the same lobe. T3 Positive lymphovascular space invasion 3 hilar lymph nodes were removed showed no evidence of ascites disease N0 stage IIB . 2. Patient with grade 2 invasive ductal carcinoma of the left breast, stage IIIA (pT3, pN1a, M0), ER/AR positive and HER-2/sam negative. 3 She underwent left total mastectomy and axillary lymph node dissection with immediate reconstruction on 05/25/2010. 4 She was given adjuvant chemotherapy with 4 cycles of before meals followed by 4 cycles of docetaxel, given a 3 week intervals, completed in December 2010. 5 She completed adjuvant radiation in February 2011. 6. Adjuvant hormonal therapy with Arimidex began in June 2011.till nov 2016 6. She has a complex underlying psychiatric history. She has multiple complaints, most of which appear to be chronic. These include fatigue and excessive somnolence. She also has chronic pain. Thus far there has been no evidence of recurrence of the breast cancer .Right shoulder/axilla/right upper chest wall pain etiology unclear could be musculoskeletal as her axilla right shoulder done on 03/27/2017 showed normal studies chest x-ray shows flattening of hemidiaphragms otherwise unremarkable, rib films showed no acute changes. Bone scan done on 05/17/2017 showed punctate foci of activity within the left anterior ribs at approximately T6 and T7 and upper thoracic spine at T6 suspicious for metastatic disease. 2 punctate foci of uptake in the midshaft of left tibia is nonspecific and metastatic disease not entirely excluded. Focal uptake in the lateral malleolus consistent with prior ORIF in this area. MRI scan thoracic spine done on 06/04/2017 showed suspicious for metastatic lesion T5 spinous process and adjacent lamina. No other evidence of metastatic disease of thoracic spine , showed shallow posterior central disc protrusion or disc bulge at T5 and T6CT PET scan done on 06/16/2017 showed there is normal tracer uptake at T5 spinous process, no active osseous metastatic disease. There is a 6 mm noncalcified pulmonary nodule in the right upper lobe with SUV of 2.7. Repeat CT PET scan on 09/22/2017 showed the right upper lobe pulmonary nodule now measures 7 mm and with SUV 6.7 compared to 7 mm with SUV 2.7 in June 2017. Otherwise no other abnormality. Ms Herron began chemotherapy with Cisplatin and Gemzar on 11/27/2017.x 4 cycles And concluded her chemotherapy on 03/18/2018 CT PET scan done on 05/11/2018 showed there is a new abnormal activity in the right paratracheal node, measuring 8mm with an SUV of 5.9 For which she underwent bronchoscopy and mediastinoscopy on 06/12/2018 and final pathology report showed no evidence of malignancy CT PET scan done on 09/28/2018 showed right paratracheal lymph node has progressed on current study and it shows SUV of 11.7 compared to 5.9 previously Plan/Problems Addressed at this Visit: 1. Per Dr Olmos's note: stage IIIa squamous cell carcinoma involving right lung, on 3 to 4 L/min of home oxygen for advanced stage COPD, still smoking actively Her was discussed with radiation oncology Dr. Rodriguez who has seen her earlier regarding treatment options including radiation alone versus combined chemoradiation with curative intent. As per Dr. Rodriguez radiation alone would not be effective to relieve endobronchial obstruction, in that case, Ms Herron has been offered weekly Carboplatin AUC 2 and Taxol 50 mg/m??? concurrent with radiation therapy. And if tolerated well, will consider maintenance therapy with immunotherapy. Dr. Wilson placed a PowerPort in the Right internal Juglar on 06/25/2020. MRI scan of the brain for staging work-up (as well as patient was complaining of off-and-on headaches and lightheaded dizziness) on June 28, 2020 did not report any evidence of intracranial metastatic disease. Ms Herron was seen by Dr. Williams Leavitt at [facility] on June 22, 2030 for bronchoscopy with tumor debulking and possible stent placement. She had rigid bronchoscopy, cryotherapy of GUILLERMO/BI and SCM stent placement into the GUILLERMO/BI. The pathology from the bronchial intermedius mass on 06/22/2020 reported invasive moderate differentiated squamous cell carcinoma, keratinizing type. Immunostaining for PD-L1 was requested in is to be reported in an addendum. A. Ms Herron will now proceed with concurrent chemoradiation. Today is week 1 day 1 of carboplatin AUC of 2 and paclitaxel 50 mg per metered squared. B. Steroid premed compliance confirmed. C. Labs from today were reviewed in detail and discussed with Ms Herron and a copy was given to her. WBC 9.1, hemoglobin 12.5, platelets 3 and 17,000, ANC is 8630. Potassium 4.1, random glucose [id number], creatinine 0.8 LFTs are normal. D. We will have her try Scopolamine patch for persistent nausea. E. She may have lidocaine/prilocaine topically for port access. F. She also try esomeprazole 20 mg daily for persistent nausea and increased heartburn. G. She will return weekly with CBC CMP and follow-up for consideration of weekly chemotherapy. H. Ms. herron was encouraged to let us know in interim if any questions or problems arise. 2. Chemotherapy plan teaching A. The patient was informed of chemotherapy plan and specific drugs were discussed. We also discussed how chemotherapy works and identified common side effects including alopecia; myelosuppression-including neutropenia, anemia, thrombocytopenia; peripheral neuropathy; fatigue; nausea; diarrhea; constipation; bleeding or bruising; skin changes; mouth sores; drug hypersensitivity/allergic reactions or anaphylaxis and extravasation. They have also been informed how to contact the clinic with side effects or symptoms, including but not limited to fever greater than 100.4???, chills, sore throat, bleeding or bruising that is not explained or mouth sores, cough, nasal discharge, diarrhea, constipation, nausea and/or vomiting not relieved with medications on hand at home, as well as any other concern or question they may have. Our hours are 8:00 a.m. to 4:30 p.m. on Sunday through and 8-12:00 on Sunday. However, someone is vision mixer 24 hours per day and they have been advised to contact the [facility] at if it is after hours. We have also discussed potential long-term side effects of chemotherapy including secondary cancers, infertility, pulmonary complications, cardiac complications, and again peripheral neuropathy. We have discussed that they certainly need to let us know before taking any antioxidants or herbal or further dietary supplements, as we are unsure of how these agents react with chemotherapy and we request that they avoid these products for now. They were informed that it is okay to take multivitamins at normal doses. They verbally state that they understand to take all medications as directed by their healthcare provider unless otherwise indicated. They also verbalized understanding to leave the pressure dressing on the intravenous administration site for at least two hours after treatment. Instructions for oral care with baking soda and salt water rinses as well as a guide for use of [id number] medication were provided with the treatment plan. They have been given a written patient treatment plan, of which a copy is in the chart, as well as specific drug information. They have no questions and verbalized understanding and are willing to proceed with chemotherapy at this time. Total time spent on Ms. Herron's visit today included review of her records prior to her visit, discussion of her treatment plan as well as side effect identification and management, answering questions and post visit documentation was 60 minutes. Signed By: Frank Butcher-, AOCNP Mehul Olmos MD <<Signature on File>>
--- NOTE | 2020-07-26 09:04 | ONCRAD TMN_ITS ---
Radiation Oncology Treatment Management Note Patient Name: Natalee Leach Date of : 1960 Date of Service: 07/26/2020 Attending Physician: Heriberto Rodriguez M.D. Natalee Leach is a 59 year-old white female diagnosed with recurrent non-small cell lung cancer (squamous cell). 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 Cisplatin/Gemzar was administered. Recent PET/CT demonstrated a right hilar mass with EBUS confirming an invasive squamous cell carcinoma. The patient has received 22 Gy of a prescribed 60 Kim with an intensity modulated radiotherapy plan utilizing a step and shoot treatment technique. She has been prescribed carboplatin (AUC 2) and paclitaxel (50 mg/m???) weekly during therapy. Upon review of systems, she denied pulmonary symptoms. She reported dysuria. On physical examination, the patient weighed 114 lbs. Her temperature was 97.2??? F with a blood pressure of 97/66 mmHg. The pulse was 112 bpm and her respiratory rate was 20. Oxygen saturation while breathing room air was 96%. There was no erythema within the treatment brown. Decreased breath sounds were auscultated. Continue thoracic radiotherapy as prescribed. I will order a urinalysis. Signed by: Dr. Heriberto Rodriguez 07/26/2020 9:34:27 AM
[2020-07-26 09:22] LABS: Basophils # 0.1 10^3/uL (0.0-0.1); Basophils % 1.5 %; Eosinophils # 0.1 10^3/uL (0.0-0.8); Eosinophils % 1.5 %; Hematocrit 36.7 % (37.0-47.0); Hemoglobin 11.7 g/dL (11.5-15.3); Lymphocytes # 0.8 10^3/uL (0.8-4.8); Lymphocytes % 20.3 %; Mean Corpuscular HGB Conc 31.9 g/dL (30.0-36.0); Mean Corpuscular Hemoglobin 30.1 pg (28.0-34.0); Mean Corpuscular Volume 94.3 fL (81-99); Mean Platelet Volume 9.7 fL (7.4-10.4); Monocytes # 0.9 10^3/uL (0.2-0.9); Monocytes % 22.1 %; Neutrophils # 2.17 10^3/uL (1.8-7.7); Neutrophils % 53.9 %; Nucleated Red Blood Cells % 0 %; Platelet Count 264 10^3/cmm (130-400); Red Blood Count 3.89 10^6/uL (4.1-5.3); Red Cell Distribution Width 14.6 % (12.1-15.1)
[2020-07-26 09:51] LABS: Alanine Aminotransferase < 5 U/L (0-33); Albumin Level 3.8 g/dL (3.5-5.2); Alkaline Phosphatase 106 IU/L (35-105); Anion Gap 13.6 (5-19); Aspartate Amino Transferase 10 U/L (0-32); Blood Urea Nitrogen 8 mg/dL (8-23); Calcium 8.5 mg/dL (8.5-10.5); Carbon Dioxide 26 mmol/L (22-29); Chloride 103 mmol/L (98-107); Globulin 2.5 g/dL (1.3-4.6); Glomerular Filtration Rate 125.9 mL/min (90-130); Glucose 107 mg/dL (65-115); Osmolality Calculated 287 mOsm/kg (285-295); Potassium 3.6 mmol/L (3.5-5.1); Sodium 139 mmol/L (136-145); Total Bilirubin 0.2 mg/dL (0.15-1.2); Total Protein 6.3 g/dL (6.6-8.7)
[2020-07-26 10:31] LABS: Add Urine Culture? No; Bacteria Urine 2+ /hpf; Bilirubin Urine 1+ (Negative); Blood Urine Neg (Negative); Glucose Urine UA Norm (Normal); Ketones Urine Negative (Negative); Leukocyte Esterase Urine Trace (Negative); Nitrate Urine Negative (Negative); Protein Urine Neg (Negative); Specific Gravity, Urine 1.015 (1.005-1.030); Urine Appearance SL Hazy (CLEAR); Urine Color Yellow (Yellow); Urobilinogen Urine 1 mg/dL (Negative); WBC Urine RARE /hpf (0-5); pH Urine 5 (5-7)
[2020-07-26] MEDS: palonosetron 0.25 mg/5 mL SDV IVP (10:45)
[2020-07-26] MEDS: sodium chloride 0.9% 250 ML 75 ML IV (10:45)
[2020-07-26] MEDS: famotidine 20 mg/2 mL INJ IVP (10:46)
[2020-07-26] MEDS: diphenhydrAMINE 50 mg/mL SDV 1mL 25 MG IVP (10:48)
[2020-07-26] MEDS: fosaprepitant 150 MG in sodium chloride 0.9% 150 ML 300 MG IV (11:06)
[2020-08-02 08:39] LABS: Basophils % 0.6 %; Eosinophils % 0.4 %; Hematocrit 37.4 % (37.0-47.0); Hemoglobin 12.1 g/dL (11.5-15.3); Lymphocytes # 0.6 10^3/uL (0.8-4.8); Lymphocytes % 13.3 %; Mean Corpuscular HGB Conc 32.4 g/dL (30.0-36.0); Mean Corpuscular Hemoglobin 30.9 pg (28.0-34.0); Mean Corpuscular Volume 95.4 fL (81-99); Mean Platelet Volume 9.6 fL (7.4-10.4); Monocytes # 0.6 10^3/uL (0.2-0.9); Monocytes % 12.1 %; Neutrophils # 3.45 10^3/uL (1.8-7.7); Nucleated Red Blood Cells % 0 %; Platelet Count 204 10^3/cmm (130-400); Red Blood Count 3.92 10^6/uL (4.1-5.3); Red Cell Distribution Width 14.9 % (12.1-15.1); White Blood Count 4.7 10^3/uL (4.0-10.0)
[2020-08-02 09:03] LABS: Alanine Aminotransferase < 5 U/L (0-33); Albumin Level 3.9 g/dL (3.5-5.2); Alkaline Phosphatase 96 IU/L (35-105); Anion Gap 13.9 (5-19); Aspartate Amino Transferase 12 U/L (0-32); Blood Urea Nitrogen 11 mg/dL (8-23); Calcium 8.5 mg/dL (8.5-10.5); Carbon Dioxide 28 mmol/L (22-29); Chloride 101 mmol/L (98-107); Globulin 2.5 g/dL (1.3-4.6); Glomerular Filtration Rate 125.9 mL/min (90-130); Glucose 115 mg/dL (65-115); Osmolality Calculated 288 mOsm/kg (285-295); Potassium 3.9 mmol/L (3.5-5.1); Sodium 139 mmol/L (136-145); Total Bilirubin 0.2 mg/dL (0.15-1.2); Total Protein 6.4 g/dL (6.6-8.7)
--- NOTE | 2020-08-02 10:42 | ONCRAD TMN_ITS ---
Radiation Oncology Weekly Treatment Management Patient: Hany Albright MR#: [id number] : 1960 Attending Physician: Dr. Carlito Garber Date of Service: 08/02/2020 Referring Physician(s): Mehul Olmos M.D. Diagnosis: C34.01 - Malignant neoplasm of right main bronchus, Diagnosed 06/03/2020 (Active) Stage X, C34.00 - Malignant neoplasm of unspecified main bronchus, Diagnosed 06/03/2020 (Active) Stage X, C50.812 - Malignant neoplasm of overlapping sites of left female breast, Diagnosed 10/28/2015 (Active) Stage IIIA, T3, pN1a, M0, G2 Radiotherapy to date: Course: Lung 2020, Treatment Site: [facility], Ref. ID: [id number], Energy: 6X, Dose/Fx (cGy): 200, #Fx: 16 / 30, Dose Correction (cGy): 0, Total Dose (cGy): 3,200, Start Date: 07/12/2020, End Date: 08/02/2020, Elapsed Days: 21 Reason for visit: The patient is being seen today as part of their regularly scheduled weekly on treatment visits to assess for acute toxicities from radiotherapy. Review of Systems: She notes some sore throat. Uses magic mouthwash which she dislikes due to bad taste. Supplements her diet with 2 to 3 cans Ensure a day. No nausea. Still smoking regularly. Efforts to quit in the past were ineffective. Vital Signs: Performed on 08/02/2020 10:21 AM BMI - 16.07 kg/m2 (low), Height - 70.00 in, Weight - 112.0 lbs, Temperature - 97.4 f, Pulse - 101, Respiration - 20, O2 Sat - 98 %, Pain - 6 and BP - 104/ 78 mm(hg). Physical Exam: omitted Imaging: Radiation therapy imaging related to accurate target localization (i.e. KV, MV and CBCT) was reviewed. Appropriate changes, if any, were made to ensure treatment accuracy. Plan: Good tolerance of treatment. Continue as planned. Advised increase intake to avoid further weight loss. Also discussed value of smoking cessation. Signed by: Dr. Carlito Garber 08/02/2020 10:40:29 AM
--- NOTE | 2020-08-02 14:53 | ONC FU_ITS ---
Dr. Olmos follow up note Patient: Natalee Leach Unit #: [id number]: 1960 Dicatated By: Mehul Olmos M.D.Date of Visit:August 02, 2020 Onc Med Follow-up/Prog Note History of Present Illness: Ms Leach is a 59 year-old woman with grade 2 invasive ductal carcinoma of the left breast, stage IIIA (pT3, pN1a, M0), ER/DE positive and HER-2/sam negative. She was diagnosed with Squamous cell Lung cancer In October 2017. She also has a complex psychiatric history. She was diagnosed with a left breast cancer in April 2010. Mammogram at that time showed a 3 cm suspicious lesion at the 3:00 position of the left breast. She underwent a total mastectomy with axillary node dissection and immediate reconstruction on 05/25/10. Her pathology revealed 5.3 cm moderately differentiated invasive ductal carcinoma, grade 2/3, with positive margins within 1 mm. It is unclear if she had re-resection. There was involvement in 2 out of 8 lymph nodes. Prognostic markers were notable for ER 99%, DE 3%, and HER-2/sam 0 by IHC. Thus, her disease was stage IIIA (pT3, pN1a, M0). She received adjuvant chemotherapy with Adriamycin and Cyclophosphamide for 4 cycles followed by Docetaxel for 4 cycles every [address] Lilly at [place]. The chemotherapy was complicated by significant hematological toxicity and peripheral neuropathy. She completed adjuvant radiation treatment on 02/16/11. She was lost to followup and self-referred to [facility] to establish care. She was first seen here in late June 2011. She was postmenopausal due to previous hysterectomy/bilateral salpingo-oophorectomy. She was started on adjuvant hormonal therapy with Arimidex 1 mg daily[address] A staging CT scan of the chest, abdomen, and pelvis on 08/10/11 showed no evidence of metastatic disease. She had right breast mammogram on 09/15/11 BI-RADS 1. CA 27-29 was 25. She had vitamin D insufficiency, and she continued on calcium and vitamin D. DEXA scan in January of 2011 had no osteoporosis. She was asked to return to [facility], but was reluctant to do so. For her painful peripheral neuropathy she established care with neurology. She also established care with pain management. She was then lost to followup here since February of 2013. DEXA scan 01/05/14 showed normal bone density. Her left breast discomfort had progressed to claudine severe burning pain. CT of the chest on 12/30/2013 showed stable implant with no evidence of cancer recurrence. She continued on Arimidex therapy. She underwent a left breast delay reconstruction. She reports taking high dose vitamin D, as she had recurrent deficiency. She was restarted on high-dose vitamin D. On 10/15/2017 she underwent right upper lobe lobectomy which showed 1.4 x 1 cm squamous cell carcinoma and microscopic satellite lesion 1 cm distant from main tumor. 3 hilar lymph nodes were removed showed no evidence of metastatic disease. She began treatment with Cisplatin/Gemzar on 11/27/2017. She had required growth factor support for neutropenia. She concluded her adjuvant chemotherapy with cisplatin and gemcitabine on 03/18/2018. Follow-up CT PET scan done on 05/11/2018 showed there is a new abnormal activity in the right paratracheal node, measuring 8mm with SUV of 5.9 Underwent bronchoscopy and mediastinoscopy on 06/12/2018 and the right upper lobe, mediastinal mass, bronchoscopy biopsy showed no malignant cell or significant atypia seen Lymph node, proximal right main bronchus, mediastinoscopy with biopsy showed benign lymph node with sinus histiocytosis. Follow-up CT PET scan done on 09/28/2018 showed the right paratracheal lymph node is progressed on the current now has SUV of 11.7 compared to 5.9 previously. No new lesions seen. Again , biopsy of this lymph node was done via mediastinoscopy on 06/12/2018 and it was normal Ms Dye underwent mediastinoscopy and flex bronchoscopy on 12/11/[address] Claros. But because of extensive scarring and adhesions, biopsy from the abnormal lymph node could not obtained. He recommended transbronchial biopsy by EBUS. Subsequently patient decided not to do anything and even stop coming for follow-up. In April 2020, she presented to the hospital with progressive shortness of breath. She underwent CTA chest on April 25, 2020 which showed extensive nonspecific pneumonia in both lung. There was extensive endobronchial occlusion of right lung and negative for pulmonary embolism. Ms Leach was referred to pulmonology and saw Dr. De La Garza on May 07, 2020. She underwent PET/CT scan on May 21, 2020 which showed abnormal activity associated with right paratracheal/hilar mass consistent with a primary lung. Obstruction of right mainstem bronchus. And no distant metastatic disease. Ms Leach then underwent bronchoscopy on June 03, 2020, right bronchus endobronchial lesion biopsy which confirmed squamous cell carcinoma. Mrs. Leach was seen on June 07, 2020 for consultation for continuation of care. Per his note at that time he felt she had stage IIIa squamous cell carcinoma involving the right lung. She was on continuous oxygen supplementation at 3 to 4 L/min and still actively smoking. Her case was discussed with radiation oncology???Dr. Rodriguez and treatment options included radiation alone versus combined chemoradiation with curative intent. Dr. Rodriguez felt that radiation alone would not be effective to relieve endobronchial obstruction so therefore weekly carboplatin paclitaxel concurrent with radiation therapy was recommended. She was referred to Dr. Wilson for Port-A-Cath placement and an MRI of the brain for staging was requested. She did have an MRI of the head with and without contrast on 06/28/2020. There was no evidence of enhancing intracranial metastatic disease. Mild small vessel changes with moderate parenchymal volume loss. No restricted diffusion to suggest acute ischemia and no other significant findings. Mrs. Leach was seen by Dr. Williams Leavitt at [facility] on June 22, 2030 for bronchoscopy with tumor debulking and possible stent placement. She had rigid bronchoscopy, cryotherapy of GUILLERMO/BI and SCM stent placement into the GUILLERMO/BI. The pathology from the bronchial intermedius mass on 06/22/2020 reported invasive moderate differentiated squamous cell carcinoma, keratinizing type. Immunostaining for PD-L1 was requested in is to be reported in an addendum. The rigid bronchoscopy reported that our MS was complete David occluded with mass. Debulking was also performed with the microdebrider. Cryotherapy of the GUILLERMO/BI: Cryotherapy was performed in the right mainstem bronchus of the lung for destruction of abnormal tissue. The freezing duration was 6 seconds and thawing duration was 5 seconds. Posttreatment findings: Lumen size was 20% of normal. DELANO stent placement into the GUILLERMO/BI a 10 mm x 40 mm covered Aero tracheobronchial stent was placed into the right mainstem bronchus of the lung and the bronchus intermedius of the lung under bronchoscopic guidance (passing a stent over a guidewire) and using a wire. The post stent lumen size was 80% of normal. The stent block to the orifice of the right upper lobe bronchus. The stent was noted to be in good position per attending physician, Zhang Chandler MD report. She states she had a port placed on June 25, 2020. She states she is due to have hardware removed out of her ankle on 07/23/[address] Torres. Started on combined chemoradiation with weekly carboplatin/Taxol on July 12, 2020, patient did not get weekly Taxol on July 19, and July 26, 2020 as she was considering left ankle hardware removal on July 23, 2020 but after having detailed discussion with Dr. Rodriguez, radiation oncologist patient changed her mind and decided to get this procedure done after the completion of combined chemoradiation Came for follow-up, denies any specific complaints except generalized weakness and fatigue but no nausea or vomiting no diarrhea constipation, still smoking about a pack a day, tolerating combined chemoradiation well otherwise, no fever chills, no hemoptysis or hematemesis, no new bony pains, no sore throat, no dysphagia . Medications: Albuterol Sulfate HFA 2 Puff(s) (of 108 (90 base) mcg/act) Aerosol, solution Inhalation four times a day PRN, Anoro Ellipta 1 Inhalation (of 62.5-25 mcg/inh) Aerosol Powder, Breath Activated Inhalation daily, Gabapentin 1 (300 mg) Capsule Oral t.i.d., Hydrocodone-Acetaminophen 1 (10-325 mg) Tablet Oral q 6 hours PRN, Loratadine 1 (10 mg) Tablet Oral daily, Mirtazapine 1 Tablet (of 15 mg) Oral daily, Prochlorperazine Maleate 1 Tablet (of 10 mg) Oral q 4 hours PRN, QUEtiapine Fumarate 1 Tablet (of 200 mg) Oral at bedtime Allergies: sulfa Review of Systems: Review of Systems is not available for this patient. Vital Signs: Performed on August 02, 2020 11:24 Height - 70.00 in Weight - 112 lbs BSA - 1.63 sq.m BMI - 16.07 (LOW) Temperature - 96.0 F (LOW) Pulse - 117 /min (HIGH) Respiration - 20 /min BP - 121/86 mm(hg) O2 Sat - 97 % Pain - 6 Fatigue - 7 Performed on August 02, 2020 10:21 Height - 70.00 in Weight - 112.0 lbs Temperature - 97.4 F Pulse - 101 Respiration - 20 BP - 104/78 mm(hg) O2 Sat - 98 % Pain - 6 Performed on August 02, 2020 10:21 BMI - 16.07 kg/m2 (LOW) Performance Status: 1 - No physically strenuous activity, but ambulatory and able to carry out light or sedentary work (e.g. office work, light house work). (ECOG) Physical Examination: Respiratory - Lungs are clear to auscultation, Cardiovascular - Regular rate and rhythm of heart, Gastrointestinal - Soft, bowel sounds present, Extremities - No visible edema or rash. Lab/Imaging: Test performed on July 26, 2020 08:20 Sodium 139 mmol/L Potassium 3.6 mmol/L Chloride 103 mmol/L CO2 26 mmol/L Anion Gap 13.6 BUN 8 mg/dL Creatinine 0.5 mg/dL Cr Clearance (Est) 98.7000 mL/min eGFR 125.9 mL/min Glucose 107 mg/dL Osmolality - Calculated 287 mOsm/kg Calcium 8.5 mg/dL Protein, Total 6.3 g/dL Albumin 3.8 g/dL Globulin 2.5 g/dL Bilirubin, Total 0.2 mg/dL ALT (SGPT) < 5 U/L AST (SGOT) 10 U/L Alkaline Phosphatase 106 IU/L WBC 4.0 10 3/uL RBC 3.89 10 6/uL HGB 11.7 g/dL HCT 36.7 % MCV 94.3 fL MCH 30.1 pg MCHC 31.9 g/dL RDW 14.6 % Platelet Count 264 10 3/cmm MPV 9.7 fL Neutrophils 2.17 10 3/uL Lymphocytes 0.8 10 3/uL Monocytes 0.9 10 3/uL Eosinophils 0.1 10 3/uL Basophils 0.1 10 3/uL Neutrophil % 53.9 % Lymphocyte % 20.3 % Monocyte % 22.1 % Eosinophil % 1.5 % Basophils % 1.5 % NRBC % 0 % Impression: Newly diagnosed squamous cell carcinoma of right lung per bronchoscopy assisted right endobronchial lesion biopsy done on June 03, 2020, T1 CT PET scan done on May 21, 2020 showed 3 x 3.8 cm right paratracheal/hilar mass with SUV of 20.8 and no evidence of distant mets, N2-, clinical stage IIIa h/o squamous cell carcinoma of right upper lobe of lung status post right upper lobectomy with hilar lymph node sampling on 10/15/2017, final pathology report showed moderately differentiated, focally keratinizing, 1.4 x 1 cm mass with microscopic satellite lesion 1 cm distant from main tumor mass and 0.2 cm from pleural surface in the same lobe. T3 Positive lymphovascular space invasion 3 hilar lymph nodes were removed showed no evidence of ascites disease N0 stage IIB . 2. Patient with grade 2 invasive ductal carcinoma of the left breast, stage IIIA (pT3, pN1a, M0), ER/DE positive and HER-2/sam negative. 3 She underwent left total mastectomy and axillary lymph node dissection with immediate reconstruction on 05/25/2010. 4 She was given adjuvant chemotherapy with 4 cycles of before meals followed by 4 cycles of docetaxel, given a 3 week intervals, completed in December 2010. 5 She completed adjuvant radiation in February 2011. 6. Adjuvant hormonal therapy with Arimidex began in June 2011.till nov 2016 6. She has a complex underlying psychiatric history. She has multiple complaints, most of which appear to be chronic. These include fatigue and excessive somnolence. She also has chronic pain. Thus far there has been no evidence of recurrence of the breast cancer .Right shoulder/axilla/right upper chest wall pain etiology unclear could be musculoskeletal as her axilla right shoulder done on 03/27/2017 showed normal studies chest x-ray shows flattening of hemidiaphragms otherwise unremarkable, rib films showed no acute changes. Bone scan done on 05/17/2017 showed punctate foci of activity within the left anterior ribs at approximately T6 and T7 and upper thoracic spine at T6 suspicious for metastatic disease. 2 punctate foci of uptake in the midshaft of left tibia is nonspecific and metastatic disease not entirely excluded. Focal uptake in the lateral malleolus consistent with prior ORIF in this area. MRI scan thoracic spine done on 06/04/2017 showed suspicious for metastatic lesion T5 spinous process and adjacent lamina. No other evidence of metastatic disease of thoracic spine , showed shallow posterior central disc protrusion or disc bulge at T5 and T6CT PET scan done on 06/16/2017 showed there is normal tracer uptake at T5 spinous process, no active osseous metastatic disease. There is a 6 mm noncalcified pulmonary nodule in the right upper lobe with SUV of 2.7. Repeat CT PET scan on 09/22/2017 showed the right upper lobe pulmonary nodule now measures 7 mm and with SUV 6.7 compared to 7 mm with SUV 2.7 in June 2017. Otherwise no other abnormality. Ms Leach began chemotherapy with Cisplatin and Gemzar on 11/27/2017.x 4 cycles And concluded her chemotherapy on 03/18/2018 CT PET scan done on 05/11/2018 showed there is a new abnormal activity in the right paratracheal node, measuring 8mm with an SUV of 5.9 For which she underwent bronchoscopy and mediastinoscopy on 06/12/2018 and final pathology report showed no evidence of malignancy CT PET scan done on 09/28/2018 showed right paratracheal lymph node has progressed on current study and it shows SUV of 11.7 compared to 5.9 previously Plan: Discussed with patient regarding her labs white blood count 4.7 hemoglobin 12.1 hematocrit 37.4 platelets 204,000 CMP within normal limits Clinically, patient doing well, tolerating combined chemoradiation with weekly carboplatin/Taxol well but with expected side effect, patient was supposed to receive her weekly dose of carboplatin/Taxol today but she did not take her steroid-based premedication last night, patient was reminded to take her premedication tonight and will consider her weekly dose of carboplatin/Taxol tomorrow morning and then she will return to clinic in a week with CBC CMP, if reasonable for next dose of weekly carboplatin/Taxol concurrent with radiation therapy Patient was advised to quit smoking and was offered any assistance she may need. Signed By: Mehul Olmos M.D. <<Signature on File>>
[2020-08-03] MEDS: diphenhydrAMINE 50 mg/mL SDV 1mL 25 MG IVP (09:05)
[2020-08-03] MEDS: famotidine 20 mg/2 mL INJ IVP (09:15)
[2020-08-03] MEDS: palonosetron 0.25 mg/5 mL SDV IVP (09:15)
[2020-08-03] MEDS: sodium chloride 0.9% 250 ML 75 ML IV (09:15)
[2020-08-03] MEDS: fosaprepitant 150 MG in sodium chloride 0.9% 150 ML 300 MG IV (09:40)
--- NOTE | 2020-08-03 16:04 | ONC FU_ITS ---
[facility] Patient Note Patient: Natalee Leach Unit #: [id number]: [id number] Dictated By: Frank ButcherDate of Visit: July 26, 2020 Onc MED Follow-Up/Prog Note Chief Complaint: Breast cancer- LEFT breast???moderately differentiated invasive ductal carcinoma grade 2 of 3 with positive margins within 1 mm ER positive WI 3% HER-2/sam negative-April 2010. Squamous cell lung cancer-Right upper lobectomy-October 2017. Squamous cell carcinoma-Right bronchus/endobronchial lesion- June 03, 2020. History of Present Illness: Ms Leach is a 59 year-old woman with grade 2 invasive ductal carcinoma of the left breast, stage IIIA (pT3, pN1a, M0), ER/WI positive and HER-2/sam negative. She was diagnosed with Squamous cell Lung cancer In October 2017. She also has a complex psychiatric history. She was diagnosed with a left breast cancer in April 2010. Mammogram at that time showed a 3 cm suspicious lesion at the 3:00 position of the left breast. She underwent a total mastectomy with axillary node dissection and immediate reconstruction on 05/25/10. Her pathology revealed 5.3 cm moderately differentiated invasive ductal carcinoma, grade 2/3, with positive margins within 1 mm. It is unclear if she had re-resection. There was involvement in 2 out of 8 lymph nodes. Prognostic markers were notable for ER 99%, WI 3%, and HER-2/sam 0 by IHC. Thus, her disease was stage IIIA (pT3, pN1a, M0). She received adjuvant chemotherapy with Adriamycin and Cyclophosphamide for 4 cycles followed by Docetaxel for 4 cycles every [address] Lilly at [facility]. The chemotherapy was complicated by significant hematological toxicity and peripheral neuropathy. She completed adjuvant radiation treatment on 02/16/11. She was lost to followup and self-referred to [facility] to establish care. She was first seen here in late June 2011. She was postmenopausal due to previous hysterectomy/bilateral salpingo-oophorectomy. She was started on adjuvant hormonal therapy with Arimidex 1 mg daily[address] A staging CT scan of the chest, abdomen, and pelvis on 08/10/11 showed no evidence of metastatic disease. She had right breast mammogram on 09/15/11 BI-RADS 1. CA 27-29 was 25. She had vitamin D insufficiency, and she continued on calcium and vitamin D. DEXA scan in January of 2011 had no osteoporosis. She was asked to return to [facility], but was reluctant to do so. For her painful peripheral neuropathy she established care with neurology. She also established care with pain management. She was then lost to followup here since February of 2013. DEXA scan 01/05/14 showed normal bone density. Her left breast discomfort had progressed to claudine severe burning pain. CT of the chest on 12/30/2013 showed stable implant with no evidence of cancer recurrence. She continued on Arimidex therapy. She underwent a left breast delay reconstruction. She reports taking high dose vitamin D, as she had recurrent deficiency. She was restarted on high-dose vitamin D. On 10/15/2017 she underwent right upper lobe lobectomy which showed 1.4 x 1 cm squamous cell carcinoma and microscopic satellite lesion 1 cm distant from main tumor. 3 hilar lymph nodes were removed showed no evidence of metastatic disease. She began treatment with Cisplatin/Gemzar on 11/27/2017. She had required growth factor support for neutropenia. She concluded her adjuvant chemotherapy with cisplatin and gemcitabine on 03/18/2018. Follow-up CT PET scan done on 05/11/2018 showed there is a new abnormal activity in the right paratracheal node, measuring 8mm with SUV of 5.9 Underwent bronchoscopy and mediastinoscopy on 06/12/2018 and the right upper lobe, mediastinal mass, bronchoscopy biopsy showed no malignant cell or significant atypia seen Lymph node, proximal right main bronchus, mediastinoscopy with biopsy showed benign lymph node with sinus histiocytosis. Follow-up CT PET scan done on 09/28/2018 showed the right paratracheal lymph node is progressed on the current now has SUV of 11.7 compared to 5.9 previously. No new lesions seen. Again , biopsy of this lymph node was done via mediastinoscopy on 06/12/2018 and it was normal Ms Leach underwent mediastinoscopy and flex bronchoscopy on 12/11/[address] Claros. But because of extensive scarring and adhesions, biopsy from the abnormal lymph node could not obtained. He recommended transbronchial biopsy by EBUS. Subsequently patient decided not to do anything and even stop coming for follow-up. In April 2020, she presented to the hospital with progressive shortness of breath. She underwent CTA chest on April 25, 2020 which showed extensive nonspecific pneumonia in both lung. There was extensive endobronchial occlusion of right lung and negative for pulmonary embolism. Ms Leach was referred to pulmonology and saw Dr. De La Garza on May 07, 2020. She underwent PET/CT scan on May 21, 2020 which showed abnormal activity associated with right paratracheal/hilar mass consistent with a primary lung. Obstruction of right mainstem bronchus. And no distant metastatic disease. Ms Leach then underwent bronchoscopy on June 03, 2020, right bronchus endobronchial lesion biopsy which confirmed squamous cell carcinoma. Mrs. Leach was seen by Dr. Olmos on June 07, 2020 for consultation for continuation of care. Per his note at that time he felt she had stage IIIa squamous cell carcinoma involving the right lung. She was on continuous oxygen supplementation at 3 to 4 L/min and still actively smoking. Her case was discussed with radiation oncology???Dr. Rodriguez and treatment options included radiation alone versus combined chemoradiation with curative intent. Dr. Rodriguez felt that radiation alone would not be effective to relieve endobronchial obstruction so therefore weekly carboplatin paclitaxel concurrent with radiation therapy was recommended. She was referred to Dr. Wilson for Port-A-Cath placement and an MRI of the brain for staging was requested. She did have an MRI of the head with and without contrast on 06/28/2020. There was no evidence of enhancing intracranial metastatic disease. Mild small vessel changes with moderate parenchymal volume loss. No restricted diffusion to suggest acute ischemia and no other significant findings. Mrs. Leach was seen by Dr. Williams Leavitt at [facility] on June 22, 2020 for bronchoscopy with tumor debulking and possible stent placement. She had rigid bronchoscopy, cryotherapy of GUILLERMO/BI and SCM stent placement into the GUILLERMO/BI. The pathology from the bronchial intermedius mass on 06/22/2020 reported invasive moderate differentiated squamous cell carcinoma, keratinizing type. Immunostaining for PD-L1 was requested in is to be reported in an addendum. The rigid bronchoscopy reported that our MS was complete David occluded with mass. Debulking was also performed with the microdebrider. Cryotherapy of the GUILLERMO/BI: Cryotherapy was performed in the right mainstem bronchus of the lung for destruction of abnormal tissue. The freezing duration was 6 seconds and thawing duration was 5 seconds. Posttreatment findings: Lumen size was 20% of normal. DELANO stent placement into the GUILLERMO/BI a 10 mm x 40 mm covered Aero tracheobronchial stent was placed into the right mainstem bronchus of the lung and the bronchus intermedius of the lung under bronchoscopic guidance (passing a stent over a guidewire) and using a wire. The post stent lumen size was 80% of normal. The stent block to the orifice of the right upper lobe bronchus. The stent was noted to be in good position per attending physician, Zhang Romero's, report. Mrs. Leach is here today for follow-up and weekly carboplatin AUC 2 and paclitaxel 50 mg per metered squared. She had a port placed on June 25, 2020. She states she was due to have hardware removed out of her ankle on 07/23/[address] Torres but that has now been delayed until her chemoradiation treatment plan is complete. She is due for week 3 carboplatin paclitaxel today. She states overall she is doing pretty good. She has had some shakes related to the steroids but they usually go away after 2 days after taking them. She has some residual intermittent shaking but states they are not bad . She has utilize a scopolamine patch for nausea and states that that is working well. She has occasional nausea but states it is nothing like it has been in the past. She states she has started having some trouble swallowing but it is not bad but feels that it is getting worse. She is utilizing the alprazolam as needed for anxiety and to help her sleep at night. She states this is working well. It also counteracts her shakes . She denies any new concerns today. She denies that she actually has any mouth sores but she does have soreness when she swallows. She denies any fever or chills. She has had no vomiting. She said no diarrhea or constipation. She denies any new pain. She denies any rash. Her energy is marginal. She states she is pretty tired after the chemotherapy and daily radiation but is still able to do her ADLs as long as she rest intermittently. She denies any shortness of breath. She is had no orthopnea. She denies any hemoptysis. She has had no blood in her bowels or urine. Her ECOG is 2. Past Medical History: Cancer (Stage IIIA, pT3, N1a, ER/WI positive, HER2 negative by IHC left breast cancer status post resection) Complex psychiatric history Seizure Stroke Past Surgical History: Hernia repair - Ventral hernia repair Hysterectomy Several foot surgeries bilaterally on bunions Right internal jugular vein PowerPort per Dr. Wilson in 2020 Bronchoscopy in 2018 Mediastinoscopy in 2018 Right upper lobectomy in 2018 Left sided mastectomy in [address] BONE DENSITY in 2012 Allergies: sulfa Medications: Albuterol Sulfate HFA 2 Puff(s) (of 108 (90 base) mcg/act) Aerosol, solution Inhalation four times a day PRN Anoro Ellipta 1 Inhalation (of 62.5-25 mcg/inh) Aerosol Powder, Breath Activated Inhalation daily Gabapentin 1 (300 mg) Capsule Oral t.i.d. Hydrocodone-Acetaminophen 1 (10-325 mg) Tablet Oral q 6 hours PRN Loratadine 1 (10 mg) Tablet Oral daily Mirtazapine 1 Tablet (of 15 mg) Oral daily Prochlorperazine Maleate 1 Tablet (of 10 mg) Oral q 4 hours PRN QUEtiapine Fumarate 1 Tablet (of 200 mg) Oral at bedtime Family History: Ms. Leach's mother is : chronic obstructive pulmonary disease. Ms. Leach's father is alive: Prostate Cancer. Ms. Leahc has 1 brother who is alive: prostate cancer. She has 1 sister who is : brain cancer. She has 2 paternal uncles: 1 alive, 1 . Ms. Leach's first paternal uncle's cancer. Another paternal uncle's prostate cancer. Social History: Ms. Leach is single and she is a disabled. She is a daily smoker who has smoked 1.0 pack/day for 41 years. She has no history of drinking. Has no history of drug abuse. Patient goes to the pain clinic for her pain medications. Review Of Symptoms: <See Above> Vital Signs: Performed on July 26, 2020 09:50 Height - 70.00 in Weight - 113 lbs (LOW) BSA - 1.64 sq.m BMI - 16.21 (LOW) Temperature - 97.2 F (LOW) Pulse - 110 /min (HIGH) Respiration - 17 /min BP - 100/66 mm(hg) O2 Sat - 98 % Pain - 8 Performed on July 26, 2020 08:49 Height - 70.00 in Weight - 113.6 lbs Temperature - 97.2 F Pulse - 112 Respiration - 22 BP - 97/66 mm(hg) O2 Sat - 96 % Pain - 7 Performed on July 26, 2020 08:49 BMI - 16.3 kg/m2 (LOW),2 - Ambulatory/capable of all self-care, unable to perform any work activities. Up and about more than 50% of waking hours. (ECOG) Physical Examination: Constitutional Alert, oriented, no acute distress. Skin pink, warm and dry. Head Normocephalic; atraumatic. Eyes Conjunctivae and sclerae are clear and without icterus. Pupils are reactive and equal. ENMT She does have mild to moderate mucositis in the palate and tongue but no evidence of Yolette presently. Respiratory Lungs are clear to auscultation without rhonchi or wheezing. Cardiovascular Regular rate and rhythm of heart without murmurs,clicks, gallops or rubs. Chest Right chest wall PowerPort insertion site has healed well. It is unremarkable. Abdomen Non-tender, non-distended, no masses, ascites. Good bowel sounds noted in all quads. No guarding or rebound tenderness. No pulsatile masses. Back/Spine Non-tender to palpation. Extremities No visible deformities, no cyanosis, clubbing or edema. Musculoskeletal No tenderness or swelling, normal range of motion without obvious weakness. Neurologic No sensory or motor deficits, normal cerebellar function, assisted gait with wheeled walker-normal for patient. Psychiatric Alert and oriented times three. Coherent speech. Verbalizes understanding of our discussions today. Laboratory:Test performed on August 02, 2020 08:20 Sodium 139 mmol/L Potassium 3.9 mmol/L Chloride 101 mmol/L CO2 28 mmol/L Anion Gap 13.9 BUN 11 mg/dL Creatinine 0.5 mg/dL Cr Clearance (Est) 98.7000 mL/min eGFR 125.9 mL/min Glucose 115 mg/dL Osmolality - Calculated 288 mOsm/kg Calcium 8.5 mg/dL Protein, Total 6.4 g/dL Albumin 3.9 g/dL Globulin 2.5 g/dL Bilirubin, Total 0.2 mg/dL ALT (SGPT) < 5 U/L AST (SGOT) 12 U/L Alkaline Phosphatase 96 IU/L WBC 4.7 10 3/uL RBC 3.92 10 6/uL HGB 12.1 g/dL HCT 37.4 % MCV 95.4 fL MCH 30.9 pg MCHC 32.4 g/dL RDW 14.9 % Platelet Count 204 10 3/cmm MPV 9.6 fL Neutrophils 3.45 10 3/uL Lymphocytes 0.6 10 3/uL Monocytes 0.6 10 3/uL Eosinophils 0.0 10 3/uL Basophils 0.0 10 3/uL Neutrophil % 73.0 % Lymphocyte % 13.3 % Monocyte % 12.1 % Eosinophil % 0.4 % Basophils % 0.6 % NRBC % 0 % Impression: 1. Newly diagnosed squamous cell carcinoma of right lung per bronchoscopy assisted right endobronchial lesion biopsy done on June 03, 2020, T1 CT PET scan done on May 21, 2020 showed 3 x 3.8 cm right paratracheal/hilar mass with SUV of 20.8 and no evidence of distant mets, N2-, clinical stage IIIa h/o squamous cell carcinoma of right upper lobe of lung status post right upper lobectomy with hilar lymph node sampling on 10/15/2017, final pathology report showed moderately differentiated, focally keratinizing, 1.4 x 1 cm mass with microscopic satellite lesion 1 cm distant from main tumor mass and 0.2 cm from pleural surface in the same lobe. T3 Positive lymphovascular space invasion 3 hilar lymph nodes were removed showed no evidence of ascites disease N0 stage IIB 2. History of grade 2 invasive ductal carcinoma of the left breast, stage IIIA (pT3, pN1a, M0), ER/WI positive and HER-2/sam negative. A. She underwent left total mastectomy and axillary lymph node dissection with immediate reconstruction on 05/25/2010. B. She was given adjuvant chemotherapy with 4 cycles of before meals followed by 4 cycles of docetaxel, given a 3 week intervals, completed in December 2010. C. She completed adjuvant radiation in February 2011. D. Adjuvant hormonal therapy with Arimidex began in June 2011.till nov 2016 3. She has a complex underlying psychiatric history. She has multiple complaints, most of which appear to be chronic. These include fatigue and excessive somnolence. She also has chronic pain. Thus far there has been no evidence of recurrence of the breast cancer .Right shoulder/axilla/right upper chest wall pain etiology unclear could be musculoskeletal as her axilla right shoulder done on 03/27/2017 showed normal studies chest x-ray shows flattening of hemidiaphragms otherwise unremarkable, rib films showed no acute changes. Bone scan done on 05/17/2017 showed punctate foci of activity within the left anterior ribs at approximately T6 and T7 and upper thoracic spine at T6 suspicious for metastatic disease. 2 punctate foci of uptake in the midshaft of left tibia is nonspecific and metastatic disease not entirely excluded. Focal uptake in the lateral malleolus consistent with prior ORIF in this area. MRI scan thoracic spine done on 06/04/2017 showed suspicious for metastatic lesion T5 spinous process and adjacent lamina. No other evidence of metastatic disease of thoracic spine , showed shallow posterior central disc protrusion or disc bulge at T5 and T6CT PET scan done on 06/16/2017 showed there is normal tracer uptake at T5 spinous process, no active osseous metastatic disease. There is a 6 mm noncalcified pulmonary nodule in the right upper lobe with SUV of 2.7. Repeat CT PET scan on 09/22/2017 showed the right upper lobe pulmonary nodule now measures 7 mm and with SUV 6.7 compared to 7 mm with SUV 2.7 in June 2017. Otherwise no other abnormality. Ms Leach began chemotherapy with Cisplatin and Gemzar on 11/27/2017.x 4 cycles And concluded her chemotherapy on 03/18/2018 CT PET scan done on 05/11/2018 showed there is a new abnormal activity in the right paratracheal node, measuring 8mm with an SUV of 5.9 For which she underwent bronchoscopy and mediastinoscopy on 06/12/2018 and final pathology report showed no evidence of malignancy CT PET scan done on 09/28/2018 showed right paratracheal lymph node has progressed on current study and it shows SUV of 11.7 compared to 5.9 previously In April 2020, she presented to the hospital with progressive shortness of breath. She underwent CTA chest on April 25, 2020 which showed extensive nonspecific pneumonia in both lung. There was extensive endobronchial occlusion of right lung and negative for pulmonary embolism. Ms Leach was referred to pulmonology and saw Dr. De La Garza on May 07, 2020. She underwent PET/CT scan on May 21, 2020 which showed abnormal activity associated with right paratracheal/hilar mass consistent with a primary lung. Obstruction of right mainstem bronchus. And no distant metastatic disease. Ms Leach then underwent bronchoscopy on June 03, 2020, right bronchus endobronchial lesion biopsy which confirmed squamous cell carcinoma. Mrs. Leach was seen by Dr. Olmos on June 07, 2020 for consultation for continuation of care. Per his note at that time he felt she had stage IIIa squamous cell carcinoma involving the right lung. She was on continuous oxygen supplementation at 3 to 4 L/min and still actively smoking. Her case was discussed with radiation oncology???Dr. Rodriguez and treatment options included radiation alone versus combined chemoradiation with curative intent. Dr. Rodriguez felt that radiation alone would not be effective to relieve endobronchial obstruction so therefore weekly carboplatin paclitaxel concurrent with radiation therapy was recommended. She was referred to Dr. Wilson for Port-A-Cath placement and an MRI of the brain for staging was requested. She did have an MRI of the head with and without contrast on 06/28/2020. There was no evidence of enhancing intracranial metastatic disease. Mild small vessel changes with moderate parenchymal volume loss. No restricted diffusion to suggest acute ischemia and no other significant findings. Mrs. Leach was seen by Dr. Williams Leavitt at [facility] on June 22, 2020 for bronchoscopy with tumor debulking and possible stent placement. She had rigid bronchoscopy, cryotherapy of GUILLERMO/BI and SCM stent placement into the GUILLERMO/BI. The pathology from the bronchial intermedius mass on 06/22/2020 reported invasive moderate differentiated squamous cell carcinoma, keratinizing type. Immunostaining for PD-L1 was requested in is to be reported in an addendum. The rigid bronchoscopy reported that our MS was complete David occluded with mass. Debulking was also performed with the microdebrider. Cryotherapy of the GUILLERMO/BI: Cryotherapy was performed in the right mainstem bronchus of the lung for destruction of abnormal tissue. The freezing duration was 6 seconds and thawing duration was 5 seconds. Posttreatment findings: Lumen size was 20% of normal. DELANO stent placement into the GUILLERMO/BI a 10 mm x 40 mm covered Aero tracheobronchial stent was placed into the right mainstem bronchus of the lung and the bronchus intermedius of the lung under bronchoscopic guidance (passing a stent over a guidewire) and using a wire. The post stent lumen size was 80% of normal. The stent block to the orifice of the right upper lobe bronchus. The stent was noted to be in good position per attending physician, Zhang Romero's, report. Ms. Leach begin concurrent chemoradiation on July 12, 2020. Plan/Problems Addressed at this Visit: 1. Per Dr Olmos's note: stage IIIa squamous cell carcinoma involving right lung, on 3 to 4 L/min of home oxygen for advanced stage COPD, still smoking actively Her was discussed with radiation oncology Dr. Rodriguez who has seen her earlier regarding treatment options including radiation alone versus combined chemoradiation with curative intent. As per Dr. Rodriguez radiation alone would not be effective to relieve endobronchial obstruction, in that case, Ms Leach has been offered weekly Carboplatin AUC 2 and Taxol 50 mg/m??? concurrent with radiation therapy. And if tolerated well, will consider maintenance therapy with immunotherapy. Dr. Wilson placed a PowerPort in the Right internal Juglar on 06/25/2020. MRI scan of the brain for staging work-up (as well as patient was complaining of off-and-on headaches and lightheaded dizziness) on June 28, 2020 did not report any evidence of intracranial metastatic disease. Ms Leach was seen by Dr. Williams Leavitt at [facility] on June 22, 2030 for bronchoscopy with tumor debulking and possible stent placement. She had rigid bronchoscopy, cryotherapy of GUILLERMO/BI and SCM stent placement into the GUILLERMO/BI. The pathology from the bronchial intermedius mass on 06/22/2020 reported invasive moderate differentiated squamous cell carcinoma, keratinizing type. Immunostaining for PD-L1 was requested in is to be reported in an addendum. She began chemoradiation on July 12, 2020. A. Today is week 3 day 1 of carboplatin AUC of 2 and paclitaxel 50 mg per metered squared. B. Steroid premed compliance confirmed. C. Labs from today were reviewed in detail and discussed with Ms Leach and a copy was given to her. WBC 4.0, hemoglobin 11.7, platelets 264,000, ANC is 2170. Potassium 3.6 random glucose 107 creatinine 0.5 LFTs are normal alk phos is 106. D. We will refill her Scopolamine patch for persistent nausea as well as her Alprazolam. E. She may have lidocaine/prilocaine topically for port access. F. She has been ecnouraged to continue esomeprazole 20 mg daily for persistent nausea and increased heartburn. G. We will send in a prescription for Magic mouthwash for esophagitis. We will add antifungal as needed. H. She will return weekly with CBC CMP and follow-up for consideration of weekly chemotherapy. I. Ms. Leach was encouraged to let us know in interim if any questions or problems arise. Signed By: Frank Butcher-, AOP Mehul Olmos MD <<Signature on File>>
== END 2020-08-09 23:59 | disposition home or self-care (01) ==
LOC: ONCMED 05:45
PROVIDERS: Internal Medicine Hematology & Oncology; Nurse Practitioner; Radiology Radiation Oncology; Absent Provider Radiology Radiation Oncology; PCP Nurse Practitioner Family; Visit Provider Radiology Radiation Oncology
DX: Z51.0 Encounter for antineoplastic radiation therapy (principal); Z51.11 Encounter for antineoplastic chemotherapy; C50.812 Malignant neoplasm of overlapping sites of left female breast; Z17.0 Estrogen receptor positive status [ER+]; C34.01 Malignant neoplasm of right main bronchus; G40.909 Epilepsy, unspecified, not intractable, without status epilepticus; Z86.73 Personal history of transient ischemic attack (TIA), and cerebral infarction without residual deficits; Z79.899 Other long term (current) drug therapy
CPT/HCPCS: 36591; 77336; 77386; 80053; 81001; 85025; 96367; 96375; 96413; 96417; 99214; 99215; J1100; J1200; J1453; J2469; J3490; J7030; J7050; J9045; J9267

== ENCOUNTER 2020-08-25 05:42 | Outpatient (RCR) | payer MEDICARE, MEDICAID, SELFPAY ==
--- NOTE | 2020-08-10 11:03 | ONCRAD TMN_ITS ---
Radiation Oncology Treatment Management Note Patient Name: Natalee Leach Date of : 1960 Date of Service: 08/10/2020 Attending Physician: Heriberto Rodriguez M.D. Natalee Leach is a 59 year-old white female diagnosed with recurrent non-small cell lung cancer (squamous cell). 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 Cisplatin/Gemzar was administered. Recent PET/CT demonstrated a right hilar mass with EBUS confirming an invasive squamous cell carcinoma. The patient has received 22 Gy of a prescribed 60 Kim with an intensity modulated radiotherapy plan utilizing a step and shoot treatment technique. She has been prescribed carboplatin (AUC 2) and paclitaxel (50 mg/m???) weekly during therapy. Upon review of systems, she denied pulmonary symptoms. She reported odynophagia. On physical examination, the patient weighed 110 lbs. Her temperature was 97.4 ???F with a blood pressure of 118/61 mmHg. The pulse was 99 bpm and her respiratory rate was 20. Oxygen saturation while breathing room air was 97%. There was no erythema within the treatment brown. Decreased breath sounds were auscultated. Continue thoracic radiotherapy as planned. I will contact pain medicine to authorize liquid oxycodone for odynophagia. Signed by: Dr. Heriberto Rodriguez 08/10/2020 11:01:32 AM
[2020-08-10 11:29] LABS: Basophils % 0.3 %; Hematocrit 35.5 % (37.0-47.0); Hemoglobin 11.5 g/dL (11.5-15.3); Lymphocytes # 0.1 10^3/uL (0.8-4.8); Lymphocytes % 3.7 %; Mean Corpuscular HGB Conc 32.4 g/dL (30.0-36.0); Mean Corpuscular Hemoglobin 29.8 pg (28.0-34.0); Mean Platelet Volume 11.2 fL (7.4-10.4); Monocytes # 0.1 10^3/uL (0.2-0.9); Monocytes % 1.3 %; Neutrophils % 93.6 %; Nucleated Red Blood Cells % 0 %; Platelet Count 92 10^3/cmm (130-400); Red Blood Count 3.86 10^6/uL (4.1-5.3); Red Cell Distribution Width 14.6 % (12.1-15.1); White Blood Count 3.7 10^3/uL (4.0-10.0)
[2020-08-10 11:53] LABS: Alanine Aminotransferase < 5 U/L (0-33); Albumin Level 4.2 g/dL (3.5-5.2); Alkaline Phosphatase 90 IU/L (35-105); Anion Gap 17.6 (5-19); Aspartate Amino Transferase 9 U/L (0-32); Blood Urea Nitrogen 23 mg/dL (8-23); Calcium 8.9 mg/dL (8.5-10.5); Carbon Dioxide 26 mmol/L (22-29); Chloride 98 mmol/L (98-107); Globulin 2.4 g/dL (1.3-4.6); Glomerular Filtration Rate 101.6 mL/min (90-130); Glucose 157 mg/dL (65-115); Osmolality Calculated 293 mOsm/kg (285-295); Potassium 3.6 mmol/L (3.5-5.1); Sodium 138 mmol/L (136-145); Total Bilirubin 0.3 mg/dL (0.15-1.2); Total Protein 6.6 g/dL (6.6-8.7)
[2020-08-10] MEDS: palonosetron 0.25 mg/5 mL SDV IV (13:44)
[2020-08-10] MEDS: sodium chloride 0.9% 250 ML 300 ML IV (13:44)
[2020-08-10] MEDS: famotidine 20 mg/2 mL INJ IVP (13:45)
[2020-08-10] MEDS: diphenhydrAMINE 50 mg/mL SDV 1mL 25 MG IV (13:47)
[2020-08-10] MEDS: fosaprepitant 150 MG in sodium chloride 0.9% 150 ML 300 MG IV (14:13)
--- NOTE | 2020-08-10 17:02 | ONC FU_ITS ---
Dr. Olmos follow up note Patient: Natalee Leach Unit #: [id number]: 1960 Dicatated By: Mehul Olmos M.D.Date of Visit:Aug 10, 2020 Onc Med Follow-up/Prog Note History of Present Illness: Ms Leach is a 59 year-old woman with grade 2 invasive ductal carcinoma of the left breast, stage IIIA (pT3, pN1a, M0), ER/NM positive and HER-2/sam negative. She was diagnosed with Squamous cell Lung cancer In October 2017. She also has a complex psychiatric history. She was diagnosed with a left breast cancer in April 2010. Mammogram at that time showed a 3 cm suspicious lesion at the 3:00 position of the left breast. She underwent a total mastectomy with axillary node dissection and immediate reconstruction on 05/25/10. Her pathology revealed 5.3 cm moderately differentiated invasive ductal carcinoma, grade 2/3, with positive margins within 1 mm. It is unclear if she had re-resection. There was involvement in 2 out of 8 lymph nodes. Prognostic markers were notable for ER 99%, NM 3%, and HER-2/sam 0 by IHC. Thus, her disease was stage IIIA (pT3, pN1a, M0). She received adjuvant chemotherapy with Adriamycin and Cyclophosphamide for 4 cycles followed by Docetaxel for 4 cycles every [address] Lilly at [place]. The chemotherapy was complicated by significant hematological toxicity and peripheral neuropathy. She completed adjuvant radiation treatment on 02/16/11. She was lost to followup and self-referred to [facility] to establish care. She was first seen here in late June 2011. She was postmenopausal due to previous hysterectomy/bilateral salpingo-oophorectomy. She was started on adjuvant hormonal therapy with Arimidex [address] A staging CT scan of the chest, abdomen, and pelvis on 08/10/11 showed no evidence of metastatic disease. She had right breast mammogram on 09/15/11 BI-RADS 1. CA 27-29 was 25. She had vitamin D insufficiency, and she continued on calcium and vitamin D. DEXA scan in January of 2011 had no osteoporosis. She was asked to return to [facility], but was reluctant to do so. For her painful peripheral neuropathy she established care with neurology. She also established care with pain management. She was then lost to followup here since February of 2013. DEXA scan 01/05/14 showed normal bone density. Her left breast discomfort had progressed to claudine severe burning pain. CT of the chest on 12/30/2013 showed stable implant with no evidence of cancer recurrence. She continued on Arimidex therapy. She underwent a left breast delay reconstruction. She reports taking high dose vitamin D, as she had recurrent deficiency. She was restarted on high-dose vitamin D. On 10/15/2017 she underwent right upper lobe lobectomy which showed 1.4 x 1 cm squamous cell carcinoma and microscopic satellite lesion 1 cm distant from main tumor. 3 hilar lymph nodes were removed showed no evidence of metastatic disease. She began treatment with Cisplatin/Gemzar on 11/27/2017. She had required growth factor support for neutropenia. She concluded her adjuvant chemotherapy with cisplatin and gemcitabine on 03/18/2018. Follow-up CT PET scan done on 05/11/2018 showed there is a new abnormal activity in the right paratracheal node, measuring 8mm with SUV of 5.9 Underwent bronchoscopy and mediastinoscopy on 06/12/2018 and the right upper lobe, mediastinal mass, bronchoscopy biopsy showed no malignant cell or significant atypia seen Lymph node, proximal right main bronchus, mediastinoscopy with biopsy showed benign lymph node with sinus histiocytosis. Follow-up CT PET scan done on 09/28/2018 showed the right paratracheal lymph node is progressed on the current now has SUV of 11.7 compared to 5.9 previously. No new lesions seen. Again , biopsy of this lymph node was done via mediastinoscopy on 06/12/2018 and it was normal Ms Dye underwent mediastinoscopy and flex bronchoscopy on 12/11/[address] Claros. But because of extensive scarring and adhesions, biopsy from the abnormal lymph node could not obtained. He recommended transbronchial biopsy by EBUS. Subsequently patient decided not to do anything and even stop coming for follow-up. In April 2020, she presented to the hospital with progressive shortness of breath. She underwent CTA chest on April 25, 2020 which showed extensive nonspecific pneumonia in both lung. There was extensive endobronchial occlusion of right lung and negative for pulmonary embolism. Ms Leach was referred to pulmonology and saw Dr. De La Garza on May 07, 2020. She underwent PET/CT scan on May 21, 2020 which showed abnormal activity associated with right paratracheal/hilar mass consistent with a primary lung. Obstruction of right mainstem bronchus. And no distant metastatic disease. Ms Leach then underwent bronchoscopy on June 03, 2020, right bronchus endobronchial lesion biopsy which confirmed squamous cell carcinoma. Mrs. Leach was seen on June 07, 2020 for consultation for continuation of care. Per his note at that time he felt she had stage IIIa squamous cell carcinoma involving the right lung. She was on continuous oxygen supplementation at 3 to 4 L/min and still actively smoking. Her case was discussed with radiation oncology???Dr. Rodriguez and treatment options included radiation alone versus combined chemoradiation with curative intent. Dr. Rodriguez felt that radiation alone would not be effective to relieve endobronchial obstruction so therefore weekly carboplatin paclitaxel concurrent with radiation therapy was recommended. She was referred to Dr. Wilson for Port-A-Cath placement and an MRI of the brain for staging was requested. She did have an MRI of the head with and without contrast on 06/28/2020. There was no evidence of enhancing intracranial metastatic disease. Mild small vessel changes with moderate parenchymal volume loss. No restricted diffusion to suggest acute ischemia and no other significant findings. Mrs. Leach was seen by Dr. Williams Leavitt at [facility] on June 22, 2030 for bronchoscopy with tumor debulking and possible stent placement. She had rigid bronchoscopy, cryotherapy of GUILLERMO/BI and SCM stent placement into the GUILLERMO/BI. The pathology from the bronchial intermedius mass on 06/22/2020 reported invasive moderate differentiated squamous cell carcinoma, keratinizing type. Immunostaining for PD-L1 was requested in is to be reported in an addendum. The rigid bronchoscopy reported that our MS was complete David occluded with mass. Debulking was also performed with the microdebrider. Cryotherapy of the GUILLERMO/BI: Cryotherapy was performed in the right mainstem bronchus of the lung for destruction of abnormal tissue. The freezing duration was 6 seconds and thawing duration was 5 seconds. Posttreatment findings: Lumen size was 20% of normal. DELANO stent placement into the GUILLERMO/BI a 10 mm x 40 mm covered Aero tracheobronchial stent was placed into the right mainstem bronchus of the lung and the bronchus intermedius of the lung under bronchoscopic guidance (passing a stent over a guidewire) and using a wire. The post stent lumen size was 80% of normal. The stent block to the orifice of the right upper lobe bronchus. The stent was noted to be in good position per attending physician, Zhang Chandler, report. She states she had a port placed on June 25, 2020. She states she is due to have hardware removed out of her ankle on 07/23/[address] Torres. Started on combined chemoradiation with weekly carboplatin/Taxol on July 12, 2020, patient did not get weekly Taxol on July 19, and July 26, 2020 as she was considering left ankle hardware removal on July 23, 2020 but after having detailed discussion with Dr. Rodriguez, radiation oncologist patient changed her mind and decided to get this procedure done after the completion of combined chemoradiation Came for follow-up, denies any specific complaints except insomnia with steroids usually respond to Valium no mouth sores, no thrush, no abdominal pain, no peripheral numbness, no petechia or ecchymosis, no nosebleed, no dysuria or hematuria, also complaining of discomfort on swallowing, as per patient radiation oncology is managing otherwise tolerating combined chemoradiation with weekly carboplatin/Taxol well, patient is scheduled to finish radiation therapy on August 23, 2020 . Medications: Albuterol Sulfate HFA 2 Puff(s) (of 108 (90 base) mcg/act) Aerosol, solution Inhalation four times a day PRN, Anoro Ellipta 1 Inhalation (of 62.5-25 mcg/inh) Aerosol Powder, Breath Activated Inhalation daily, Gabapentin 1 (300 mg) Capsule Oral t.i.d., Hydrocodone-Acetaminophen 1 (10-325 mg) Tablet Oral q 6 hours PRN, Loratadine 1 (10 mg) Tablet Oral daily, Mirtazapine 1 Tablet (of 15 mg) Oral daily, Prochlorperazine Maleate 1 Tablet (of 10 mg) Oral q 4 hours PRN, QUEtiapine Fumarate 1 Tablet (of 200 mg) Oral at bedtime Allergies: sulfa Review of Systems: Review of Systems is not available for this patient. Vital Signs: Performed on Aug 10, 2020 13:14 Height - 70.00 in Weight - 103 lbs (LOW) BSA - 1.57 sq.m BMI - 14.78 (LOW) Temperature - 97.6 F (LOW) Pulse - 114 /min (HIGH) Respiration - 18 /min BP - 103/73 mm(hg) O2 Sat - 95 % (LOW) Pain - 8 Fatigue - 9 Performed on Aug 10, 2020 10:46 Height - 70.00 in Weight - 110.0 lbs Temperature - 97.4 F Pulse - 99 Respiration - 20 BP - 118/61 mm(hg) O2 Sat - 97 % Pain - 5 Performed on Aug 10, 2020 10:46 BMI - 15.783 kg/m2 (LOW) Performance Status: 1 - No physically strenuous activity, but ambulatory and able to carry out light or sedentary work (e.g. office work, light house work). (ECOG) Physical Examination: Respiratory - Lungs are clear to auscultation, Cardiovascular - Regular rate and rhythm of heart, Gastrointestinal - Soft, bowel sounds present, Extremities - No visible edema or rash or cyanosis. Lab/Imaging: Test performed on Aug 10, 2020 13:16 Creatinine 0.6 mg/dL Cr Clearance (Est) 72.62 mL/min Test performed on August 02, 2020 08:20 Sodium 139 mmol/L Potassium 3.9 mmol/L Chloride 101 mmol/L CO2 28 mmol/L Anion Gap 13.9 BUN 11 mg/dL eGFR 125.9 mL/min Glucose 115 mg/dL Osmolality - Calculated 288 mOsm/kg Calcium 8.5 mg/dL Protein, Total 6.4 g/dL Albumin 3.9 g/dL Globulin 2.5 g/dL Bilirubin, Total 0.2 mg/dL ALT (SGPT) < 5 U/L AST (SGOT) 12 U/L Alkaline Phosphatase 96 IU/L WBC 4.7 10 3/uL RBC 3.92 10 6/uL HGB 12.1 g/dL HCT 37.4 % MCV 95.4 fL MCH 30.9 pg MCHC 32.4 g/dL RDW 14.9 % Platelet Count 204 10 3/cmm MPV 9.6 fL Neutrophils 3.45 10 3/uL Lymphocytes 0.6 10 3/uL Monocytes 0.6 10 3/uL Eosinophils 0.0 10 3/uL Basophils 0.0 10 3/uL Neutrophil % 73.0 % Lymphocyte % 13.3 % Monocyte % 12.1 % Eosinophil % 0.4 % Basophils % 0.6 % NRBC % 0 % Impression: Newly diagnosed squamous cell carcinoma of right lung per bronchoscopy assisted right endobronchial lesion biopsy done on June 03, 2020, T1 CT PET scan done on May 21, 2020 showed 3 x 3.8 cm right paratracheal/hilar mass with SUV of 20.8 and no evidence of distant mets, N2-, clinical stage IIIa h/o squamous cell carcinoma of right upper lobe of lung status post right upper lobectomy with hilar lymph node sampling on 10/15/2017, final pathology report showed moderately differentiated, focally keratinizing, 1.4 x 1 cm mass with microscopic satellite lesion 1 cm distant from main tumor mass and 0.2 cm from pleural surface in the same lobe. T3 Positive lymphovascular space invasion 3 hilar lymph nodes were removed showed no evidence of ascites disease N0 stage IIB . 2. Patient with grade 2 invasive ductal carcinoma of the left breast, stage IIIA (pT3, pN1a, M0), ER/NM positive and HER-2/sam negative. 3 She underwent left total mastectomy and axillary lymph node dissection with immediate reconstruction on 05/25/2010. 4 She was given adjuvant chemotherapy with 4 cycles of before meals followed by 4 cycles of docetaxel, given a 3 week intervals, completed in December 2010. 5 She completed adjuvant radiation in February 2011. 6. Adjuvant hormonal therapy with Arimidex began in June 2011.till nov 2016 6. She has a complex underlying psychiatric history. She has multiple complaints, most of which appear to be chronic. These include fatigue and excessive somnolence. She also has chronic pain. Thus far there has been no evidence of recurrence of the breast cancer .Right shoulder/axilla/right upper chest wall pain etiology unclear could be musculoskeletal as her axilla right shoulder done on 03/27/2017 showed normal studies chest x-ray shows flattening of hemidiaphragms otherwise unremarkable, rib films showed no acute changes. Bone scan done on 05/17/2017 showed punctate foci of activity within the left anterior ribs at approximately T6 and T7 and upper thoracic spine at T6 suspicious for metastatic disease. 2 punctate foci of uptake in the midshaft of left tibia is nonspecific and metastatic disease not entirely excluded. Focal uptake in the lateral malleolus consistent with prior ORIF in this area. MRI scan thoracic spine done on 06/04/2017 showed suspicious for metastatic lesion T5 spinous process and adjacent lamina. No other evidence of metastatic disease of thoracic spine , showed shallow posterior central disc protrusion or disc bulge at T5 and T6CT PET scan done on 06/16/2017 showed there is normal tracer uptake at T5 spinous process, no active osseous metastatic disease. There is a 6 mm noncalcified pulmonary nodule in the right upper lobe with SUV of 2.7. Repeat CT PET scan on 09/22/2017 showed the right upper lobe pulmonary nodule now measures 7 mm and with SUV 6.7 compared to 7 mm with SUV 2.7 in June 2017. Otherwise no other abnormality. Ms Leach began chemotherapy with Cisplatin and Gemzar on 11/27/2017.x 4 cycles And concluded her chemotherapy on 03/18/2018 CT PET scan done on 05/11/2018 showed there is a new abnormal activity in the right paratracheal node, measuring 8mm with an SUV of 5.9 For which she underwent bronchoscopy and mediastinoscopy on 06/12/2018 and final pathology report showed no evidence of malignancy CT PET scan done on 09/28/2018 showed right paratracheal lymph node has progressed on current study and it shows SUV of 11.7 compared to 5.9 previously Plan: Discussed with patient regarding her labs white blood count 3.7 hemoglobin 11.5 hematocrit 35.5 platelets 92,000 compared to 204,000 previously ANC 3500 CMP within normal limits Clinically, patient doing reasonably well, with no new signs symptom, tolerating combined chemoradiation with weekly carboplatin/Taxol well but with expected/especially with high-dose steroids used as premedication causing insomnia. We will proceed with next weekly dose of carboplatin/Taxol but because of progressive thrombocytopenia we will reduce carboplatin dose by 20% and monitor her platelets She will return to clinic in 1 week with CBC and CMP Signed By: Mehul Olmos M.D. <<Signature on File>>
[2020-08-16] MEDS: sodium chloride 0.9% 500 ML 999 ML IV (11:00)
[2020-08-16 11:05] LABS: Basophils % 2.3 %; Eosinophils % 2.3 %; Hematocrit 32.8 % (37.0-47.0); Hemoglobin 11.3 g/dL (11.5-15.3); Lymphocytes # 0.2 10^3/uL (0.8-4.8); Lymphocytes % 15.3 %; Mean Corpuscular HGB Conc 34.5 g/dL (30.0-36.0); Mean Corpuscular Hemoglobin 30.9 pg (28.0-34.0); Mean Corpuscular Volume 89.6 fL (81-99); Mean Platelet Volume 11.6 fL (7.4-10.4); Monocytes # 0.1 10^3/uL (0.2-0.9); Monocytes % 9.9 %; Neutrophils % 68.7 %; Nucleated Red Blood Cells % 0 %; Platelet Count 53 10^3/cmm (130-400); Red Blood Count 3.66 10^6/uL (4.1-5.3); Red Cell Distribution Width 14.4 % (12.1-15.1); White Blood Count 1.3 10^3/uL (4.0-10.0)
[2020-08-16 11:24] LABS: Alanine Aminotransferase < 5 U/L (0-33); Albumin Level 4.2 g/dL (3.5-5.2); Alkaline Phosphatase 85 IU/L (35-105); Anion Gap 20.1 (5-19); Aspartate Amino Transferase 6 U/L (0-32); Blood Urea Nitrogen 20 mg/dL (8-23); Calcium 8.8 mg/dL (8.5-10.5); Carbon Dioxide 26 mmol/L (22-29); Chloride 92 mmol/L (98-107); Globulin 2.3 g/dL (1.3-4.6); Glomerular Filtration Rate 125.4 mL/min (90-130); Glucose 125 mg/dL (65-115); Osmolality Calculated 284 mOsm/kg (285-295); Potassium 3.1 mmol/L (3.5-5.1); Sodium 135 mmol/L (136-145); Total Bilirubin 0.5 mg/dL (0.15-1.2); Total Protein 6.5 g/dL (6.6-8.7)
[2020-08-16 12:10] LABS: Slide Review Slide Review Perform
[2020-08-17] MEDS: sodium chloride 0.9% 500 ML 999 ML IV (11:50)
[2020-08-17] MEDS: pantoprazole 40 mg SDV IV (11:53)
[2020-08-17] MEDS: fluconazole premix 200 MG/100 ML PREMIX 100 MG IV (11:54)
[2020-08-17] MEDS: sodium chloride 0.9% 1,000 ML 999 ML IV (13:15)
[2020-08-20] MEDS: sodium chloride 0.9% 500 ML 999 ML IV (11:00)
[2020-08-23] MEDS: sodium chloride 0.9% 500 ML 999 ML IV (10:25)
[2020-08-23] MEDS: fluconazole premix 200 MG/100 ML PREMIX 100 MG IV (11:20)
[2020-08-23] MEDS: sodium chloride 0.9% 1,000 ML 999 ML IV (11:20)
[2020-08-23] MEDS: sodium chloride 0.9% (100 ml) 100 ML 75 ML (11:20)
[2020-08-23] MEDS: pantoprazole 40 mg SDV IV (11:20)
[2020-08-23] MEDS: acyclovir 800 MG in sodium chloride 0.9% (100 ml) 100 ML 120 MG IV (12:20)
[2020-08-24] MEDS: pantoprazole 40 mg SDV IV (11:40)
[2020-08-24] MEDS: sodium chloride 0.9% 1,000 ML 999 ML IV (11:40)
[2020-08-24] MEDS: fluconazole premix 200 MG/100 ML PREMIX 100 MG IV (11:45)
[2020-08-24] MEDS: acyclovir 800 MG in sodium chloride 0.9% (100 ml) 100 ML 120 MG IV (12:45)
[2020-08-25] MEDS: pantoprazole 40 mg SDV IV (11:45)
[2020-08-25] MEDS: sodium chloride 0.9% 1,000 ML 999 ML IV (11:45)
[2020-08-25] MEDS: fluconazole premix 200 MG/100 ML PREMIX 100 MG IV (11:50)
[2020-08-25] MEDS: acyclovir 800 MG in sodium chloride 0.9% (100 ml) 100 ML 120 MG IV (12:50)
--- NOTE | 2020-08-29 12:54 | ONC FU_ITS ---
[facility] Patient Note Patient: Natalee Leach Unit #: [id number]: 1960 Dictated By: Frank ButcherDate of Visit: Aug 17, 2020 Onc MED Follow-Up/Prog Note Mrs. Leach did not stay for follow-up visit today. She states that she is having side effects from chemotherapy and is not pursuing any further treatment at this time. She states she is finished her chemotherapy plan in general. She has also delayed the last few days of radiation due to performance status concerns. She states she has having problems with pain and unable to swallow. She states she is having a hard time keeping any thing down or getting anything down. We have discussed intermittent hydration and will plan to do this daily and she will let us know if she has any further concerns. We may also need to add antiemetics or Protonix/Pepcid, fluconazole if her symptoms are not improving. Signed By: Frank Butcher-RYAN AOCNP <<Signature on File>>
== END 2020-09-08 23:59 | disposition home or self-care (01) ==
LOC: ONCMED 05:42
PROVIDERS: Internal Medicine Hematology & Oncology; Absent Provider Radiology Radiation Oncology; PCP Nurse Practitioner Family; Visit Provider Nurse Practitioner
DX: Z51.0 Encounter for antineoplastic radiation therapy (principal); Z51.11 Encounter for antineoplastic chemotherapy; C34.11 Malignant neoplasm of upper lobe, right bronchus or lung; C79.51 Secondary malignant neoplasm of bone; R13.10 Dysphagia, unspecified; Z79.899 Other long term (current) drug therapy; Z85.3 Personal history of malignant neoplasm of breast; Z90.12 Acquired absence of left breast and nipple; Z92.21 Personal history of antineoplastic chemotherapy; Z92.3 Personal history of irradiation
CPT/HCPCS: 77336; 77386; 80053; 85025; 96360; 96361; 96365; 96367; 96375; 96413; 96417; 99214; 99215; C9113; J0133; J1100; J1200; J1450; J1453; J2469; J3490; J7030; J7040; J7050; J9045; J9267